=== PATIENT | female | born 1980 | race Caucasian/White ===

== ENCOUNTER 2016-09-22 14:56 | Emergency (ER) | payer BC ==
[~2016-09-22] VITALS: Ht 167.6 cm; Wt 109.8 kg
[~2016-09-22 14:56] MED LIST: ALLO300T PO; ARIP15TA2 PO; ASCO10002 PO; CANA300T PO; CYCL10TA2 PO; DOCU-27 PO; FENT1PAT90 TD; FLUV100C2 PO; FLUV100T2 PO; GABA-585 PO; GABA-586 PO; GLIP5TAB22 PO; HYDR2TAB13 PO; HYDR4TAB13 PO; INSU100I17 SQ; INSU100I27 SQ; LEVO150T PO; LEVO175T5 PO; LORA0.5T96 PO; MELO7.5T5 PO; METF10002 PO; METF500T4 PO; MINO100C PO; MODA100T2 PO; MULT-208 PO; OXYC-244 PO; OXYC-250 PO; OXYC1TAB8 PO; Oxycodone Hcl/Acetaminophen PO; PANT40TA3 PO; RISP1TAB43 PO; SPIR25TA3 PO; birth control pills
[2016-09-22 15:22] VITALS: BP 121/72
[2016-09-22] MEDS ORDERED: KETOROLAC TROMETHAMINE 60 MG/2 ML SYRINGE. IM ONE (15:45)
[2016-09-22] MEDS ORDERED: DEXAMETHASONE SOD PHOS 20 MG/5 ML VIAL. IM ONE (15:45)
[2016-09-22] MEDS ORDERED: HYDROMORPHONE 2 MG/ML VIAL. IM ONE (15:45)
--- NOTE | 2016-09-22 15:48 | PHYS DOC ---
Past Medical History Past Medical History: Hypothyroid, IBS, Other Additional Past Medical Histor: PCOS, OCD, SLEEP APNEA, DJD,CHRONIC PAIN,GOUT Past Surgical History: Tonsillectomy, Other Additional Past Surgical Histo: 3 BACK SX, SPINAL FUSION Alcohol Use: Rarely Drug Use: None Adult General Chief Complaint Chief Complaint: LOWER BACK PAIN OR INJURY HPI HPI Patient is a 36 year old female with a history of hypothyroidism, IBS, chronic back pain radiating to the left hip that presents today with 10 out of 10 chronic bilateral low back pain radiating to the left hip. Patient states she follows up with the pain clinic at [facility]. She states she showed up for her appointment at 1040 am and was told there was a mix up, her appointment was not scheduled for that time. She states she was not able to see the pain clinic doctor. She went home and tried taking her Dilaudid by mouth. She also has a fentanyl patch. She states her pain currently is not well controlled. She is in the ED requesting something for pain. Review of Systems Review of Systems Constitutional: Denies fever or chills [] Musculoskeletal: Chronic back pain radiating to the left hip Integument: Denies rash or skin lesions [] Neurologic: Denies headache, focal weakness or sensory changes [] Endocrine: Denies polyuria or polydipsia [] Allergies Allergies Allergies Coded Allergies Type Severity Reaction Last Updated Verified oxycodone Allergy Severe airway reaction 01/27/14 Yes morphine Allergy Mild Nausea and Vomiting 04/28/14 No Physical Exam Physical Exam Constitutional: Well developed, well nourished, no acute distress, non-toxic appearance. [] Abdomen: Bowel sounds normal, soft, no tenderness, no masses, no pulsatile masses. [] Skin: Warm, dry, no erythema, no rash. [] Back: Old healed surgical incision mid to low back. Diffuse tenderness to paraspinal muscles of bilateral lumbar region worse on the left SI joint, no midline tenderness, no CVA tenderness. [] Extremities: No tenderness, no cyanosis, no clubbing, ROM intact, no edema. [] Neurologic: Alert and oriented X 3, normal motor function, normal sensory function, no focal deficits noted. [] Psychologic: Affect normal, judgement normal, mood normal. [] Current Patient Data Vital Signs Vital Signs Date Time Temp Pulse Resp B/P Pulse Ox O2 Delivery O2 Flow Rate FiO2 2/17/17 15:22 97.8 118 22 121/72 95 Room Air 97.8 EKG EKG [] Radiology/Procedures Radiology/Procedures [] Course & Med Decision Making Course & Med Decision Making Pertinent Labs and Imaging studies reviewed. (See chart for details) Patient is in the ED with chronic low back pain. She follows up with the pain clinic and states there was a mixup of her appointment when she showed up. She has a fentanyl patch that she also takes Dilaudid when necessary for pain. I talked to patient and family member at length. Informed them patient is already taking strong pain medicine and there is very little we can do in the ED for her chronic pain. I recommended a shot of Decadron Toradol and 1 mg of Dilaudid IM and follow-up with the pain clinic doctor as soon as possible. She was provided return precautions and discharged in stable condition. Dragon Disclaimer Dragon Disclaimer This electronic medical record was generated, in whole or in part, using a voice recognition dictation system. Departure Departure Impression: Primary Impression: Chronic back pain Additional Impression: Left sided sciatica Disposition: 01 HOME, SELF-CARE Condition: STABLE Referrals: NEGRITO KERN (PCP) FLYNN GROSSMAN MD See Dr. Grossman as soon as possible Patient Instructions: Back Pain, Adult Additional Instructions: You were seen for chronic back pain. Continue taking your pain medicines as previously prescribed by Dr. Grossman. Come back to the emergency room for any concerning symptoms especially the loss of bowel bladder function. Problem Qualifiers Primary Impression: Chronic back pain Back pain location: low back pain Back pain laterality: bilateral Sciatica presence: with sciatica Sciatica laterality: sciatica of left side Qualified Code: M54.42 - Lumbago with sciatica, left side NUZHATAMBER LUCERO IRVING Sep 22, 2016 15:48
== END 2016-09-22 16:10 | disposition home or self-care (01) ==
LOC: ER 14:56
DX: G89.29 Other chronic pain (principal); M54.42 Lumbago with sciatica, left side; E03.9 Hypothyroidism, unspecified; G47.30 Sleep apnea, unspecified; M10.9 Gout, unspecified; Z88.5 Allergy status to narcotic agent
CPT/HCPCS: 96372; 99284; J1100; J1170; J1885

== ENCOUNTER → 2016-09-28 | Outpatient (CLI) | payer BC ==
[2016-09-22 15:22] VITALS: BP 121/72
[~2016-09-28] MED LIST changes: +CLOM50CA2 PO
--- NOTE | 2016-09-29 11:59 | PN ---
DATE: 09/28/2016 DIAGNOSES: Lumbar radiculopathy with lumbar degenerative disk disease, spondylosis and post-lumbar laminectomy syndrome. HISTORY OF PRESENT ILLNESS: The patient is a 36-year-old female who returns for followup status post medication management with Duragesic patches and hydromorphone. The patient reports she has been doing fairly well, but the hydromorphone is becoming less and less effective. She actually had to go to the Emergency Room about 5 days ago because the pain was becoming more intolerable in her low back and left leg. The patient reports that it is at 9 on a scale of 10 currently. They were able to give her an IV injection of hydromorphone and Toradol as well as some dexamethasone, which decreased the pain fairly significantly, but she is very frightened as what to do if this happens again. The patient reports that the hydromorphone is becoming less and less effective and she is taking it 4 times a day, which she was generally taking only 3 to 4 times a day. Now it is 4 times day, absolutely, the patient reports aches, sharp pain across the low back in the left leg with some numbness and tingling similar to that she has had for some time now since her lumbar surgery, but without significant decrease in pain control. The patient reports no side effects with the medications and normally would decrease her pain by about 70%-75%, but has only about 40%-50% decrease. The patient is still using Duragesic patch as well, which reports has no side effects with this also. PHYSICAL EXAMINATION: VITAL SIGNS: Today, the patient's blood pressure is 125/87, pulse 140, respirations 16, temperature 98.2 degrees Fahrenheit, height is 5 feet 7 inches, and weight is 237 pounds. GENERAL: The patient is awake, alert, oriented, appropriate, very pleasant demeanor. HEENT: Head shows normocephalic and atraumatic. Extraocular movements are intact and symmetrical. Oral cavity, mucous membranes are moist and pink. Dentition is intact. NECK: Shows anterior throat supple without palpable lymphadenopathy noted. Swallow reflex is symmetrical. CHEST: Shows normal on inspection. Breath sounds are clear to auscultation bilaterally. HEART: Shows S1 and S2 clear. ABDOMEN: Soft, nontender, and nondistended. No palpable organomegaly is noted. No rebound or guarding demonstrated. BACK: The patient's back shows spine grossly midline, well-healed surgical scar is noted in the lumbar distribution. Lumbar paraspinous muscle shows some moderate tenderness with palpation bilaterally in the lumbar distribution, but is symmetrical with inspection, on palpation shows some radiation, but only mildly into the gluteus bilaterally, somewhat worse on the left than the right. EXTREMITIES: The patient's lower extremities showed deep tendon reflexes of 1+ in the patellar and tendo-calcaneus tendons. Motor exam is approximately 4 on a scale of 5, but equal with dorsiflexion, extension, quadriceps and hamstring flexion bilaterally. Peripheral pulses are 1+ posterior tibial and dorsalis pedis pulses that are equal. No clubbing, cyanosis or edema is noted. Options were discussed with the patient and the patient's old chart was reviewed as her current medication regimen updated. Current review of systems is updated today as well. We will change the Dilaudid to oxycodone as she seems to be developing some physiologic tolerance ____ maintain a Duragesic patch of 25 mcg, also try Medrol Dosepak. She is having some increased irritation in her left hip as well as irritability and radiculitis in the left leg and back and she has done well with this in the past. Also, we will maintain 25 mcg Duragesic patches. The patient was given instruction as well as side effects to be aware of the medications. We also discussed in some detail physical therapy and the importance of conditioning her back as well as her core strength, which will help in the long run with keeping her back pain reduced. She has been willing to try this. We will make arrangements for physical therapy, strengthening and stretching exercises as well as mobility, heat and massage techniques for her low back and lower extremities. The patient will follow up after physical therapy is initiated. Also, patient reports she is leaving town in about 2 weeks for vacation and will follow up when she returns from this and sooner if necessary. FLYNN ALONSO MD DR: ARTHUR/nguyễn JOB#: [id number] / [id number]
== END | disposition home or self-care (01) ==
LOC: PNCL 13:10
PROVIDERS: ATTEND Anesthesiology
DX: M51.16 Intervertebral disc disorders with radiculopathy, lumbar region (principal); M47.896 Other spondylosis, lumbar region; M96.1 Postlaminectomy syndrome, not elsewhere classified
CPT/HCPCS: 99212

== ENCOUNTER 2016-12-19 21:18 | Emergency (ER) | payer BC ==
[~2016-12-19] VITALS: Ht 167.6 cm; Wt 106.1 kg
[~2016-12-19 21:18] MED LIST changes: +METF-620 PO; -METF10002 PO
[2016-12-19 21:26] VITALS: BP 161/84
--- NOTE | 2016-12-19 21:42 | PHYS DOC ---
Past Medical History Past Medical History: Hypothyroid, IBS, Other Additional Past Medical Histor: PCOS, OCD, SLEEP APNEA, DJD,CHRONIC PAIN,GOUT Past Surgical History: Tonsillectomy, Other Additional Past Surgical Histo: 3 BACK SX, SPINAL FUSION Alcohol Use: Rarely Drug Use: None Adult General Chief Complaint Chief Complaint: PAIN CONTROL [facility] HPI Patient is a 36 year old female presents to the ED with c/o exacerbation chronic LBP for three days. She states that she is using her percocet and flexeril as directed by her pain management physician. She states that she is not having relief of pain. She states that pain is typical of her chronic low back pain. She states this pain does radiate to the right hip which is consistent with her chronic pain. She has no known injury. She has no loss of bowel or bladder control. No loss of function lower extremity. She states that she has not contacted her pain management physician in [facility] because she "buttock and management on my own". Review of Systems Review of Systems Constitutional: Denies fever or chills [] Eyes: Denies change in visual acuity, redness, or eye pain [] HENT: Denies nasal congestion or sore throat [] Respiratory: Denies cough or shortness of breath [] Cardiovascular: No additional information not addressed in HPI [] GI: Denies abdominal pain, nausea, vomiting, bloody stools or diarrhea [] : Denies dysuria or hematuria [] Musculoskeletal: Denies back pain or joint pain [] Integument: Denies rash or skin lesions [] Neurologic: Denies headache, focal weakness or sensory changes [] Endocrine: Denies polyuria or polydipsia [] Allergies Allergies Allergies Coded Allergies Type Severity Reaction Last Updated Verified oxycodone Allergy Severe airway reaction 01/27/14 Yes morphine Allergy Mild Nausea and Vomiting 04/28/14 No Physical Exam Physical Exam Constitutional: Well developed, well nourished, non-toxic appearance. [] HENT: Normocephalic, atraumatic, bilateral external ears normal, oropharynx moist, no oral exudates, nose normal. [] Eyes: PERRLA, EOMI, conjunctiva normal, no discharge. [] Neck: Normal range of motion, no tenderness, supple, no stridor. [] Cardiovascular:Heart rate regular rhythm, no murmur [] Lungs & Thorax: Bilateral breath sounds clear to auscultation [] Abdomen: Bowel sounds normal, soft, no tenderness, no masses, no pulsatile masses. [] Skin: Warm, dry, no erythema, no rash. [] Back: Mild tenderness in the right lumbar paraspinous muscles and across the right sacroiliac crest. She has no midline spine tenderness. She has a negative straight raise leg test. Her neurovascular is intact distally. No saddle anesthesia. Her muscle strength is 5/5. Extremities: No tenderness, no cyanosis, no clubbing, ROM intact, no edema. [] Neurologic: Alert and oriented X 3, normal motor function, normal sensory function, no focal deficits noted. [] Psychologic: Affect normal, judgement normal, mood normal. [] Current Patient Data Vital Signs Vital Signs Date Time Temp Pulse Resp B/P (MAP) Pulse Ox O2 Delivery O2 Flow Rate FiO2 12/19/16 21:26 98.1 135 18 98 Room Air 98.1 EKG EKG [] Radiology/Procedures Radiology/Procedures [] Course & Med Decision Making Course & Med Decision Making Pertinent Labs and Imaging studies reviewed. (See chart for details) [] Dragon Disclaimer Dragon Disclaimer This electronic medical record was generated, in whole or in part, using a voice recognition dictation system. Departure Departure Impression: Primary Impression: Chronic back pain Disposition: 01 HOME, SELF-CARE Condition: STABLE Referrals: NEGRITO KERN (PCP) Patient Instructions: Chronic Back Pain Additional Instructions: Follow-up with your pain management physician in the morning, call when the office opens. SMITHA ELAM APRN December 19, 2016 21:42
[2016-12-19] MEDS ORDERED: fentaNYL PF VIAL 100 MCG/2 ML VIAL IM ONE (22:00)
[2016-12-21] MEDS ORDERED: VALA500T PO (08:11)
== END 2016-12-19 21:51 | disposition home or self-care (01) ==
LOC: ER 21:18
DX: G89.29 Other chronic pain (principal); M54.5 Low back pain; M25.551 Pain in right hip; E03.9 Hypothyroidism, unspecified; E28.2 Polycystic ovarian syndrome; F42.9 Obsessive-compulsive disorder, unspecified; K58.9 Irritable bowel syndrome, unspecified; M10.9 Gout, unspecified; Z98.890 Other specified postprocedural states; Z98.1 Arthrodesis status; Z88.5 Allergy status to narcotic agent
CPT/HCPCS: 96372; 99283; J3010

== ENCOUNTER → 2016-12-21 | Outpatient (CLI) | payer BC ==
[2016-12-19 21:26] VITALS: BP 161/84
[~2016-12-21] MED LIST changes: +IOHEXOL 180 MG/ML 10 ML VIAL. ONE; +VALA500T PO; +methylPREDNISolone ACETATE 40 MG/ML VIAL. ONE; +methylPREDNISolone ACETATE 80 MG/ML VIAL. ONE
--- NOTE | 2016-12-21 10:59 | PN ---
DATE: 12/21/2016 PROGRESS NOTE FOR PAIN CLINIC DIAGNOSES: Lumbar radiculopathy with lumbar degenerative disk disease, spondylosis and post-lumbar laminectomy syndrome. HISTORY OF PRESENT ILLNESS: The patient is a 36-year-old female who returns for followup, status post medication management with Duragesic patches and oxycodone. The patient has been doing very well with this, but had increased pain across the low back over the past several weeks to the point where she went to the Emergency Room several days ago. They gave her an injection of fentanyl and send her home. It did get help temporarily, but pain is becoming more noticeable. It was radiating to the posterior and lateral anterior thigh on the right side into the lower leg on the right side as well anteriorly and medially. The patient reports this feels similar to that did for her surgery. The patient reports it at 10 on a scale of 10. It is worse at 7 currently. The patient reports it as severe, shooting, sharp, aching and alternating with dull and stabbing pain. The patient reports no new motor or sensory deficits, no new bowel or bladder incontinence, but still significant pain that is awakening her from sleep at night. She has to apply heat, take pain medication and change positions to decrease the pain. PHYSICAL EXAMINATION: VITAL SIGNS: The patient's blood pressure is 138/90, pulse 109, respirations 18, temperature is 98.1 degrees Fahrenheit. Height is 5 feet 7 inches, weighs 246 pounds. GENERAL: The patient is awake, alert, oriented, appropriate, has a very pleasant demeanor. HEENT: Shows normocephalic, atraumatic. Extraocular movements are intact and symmetrical. Oral cavity shows mucous membranes moist and pink. Dentition is intact. NECK: Shows anterior throat supple without palpable lymphadenopathy noted. Swallow reflex is symmetrical. CHEST: Shows normal on inspection. Breath sounds clear to auscultation bilaterally. HEART: Shows S1 and S2 clear. ABDOMEN: Soft, nontender, nondistended. No palpable organomegaly is noted. No rebound or guarding demonstrated. BACK: Shows spine grossly in the midline with a well-healed surgical scar with some flattening of lumbar lordotic curvature. Paraspinous musculature shows moderately tender with palpation, but symmetrical. No evidence of atrophy or hypertrophy. No radiation of pain. EXTREMITIES: The patient's lower extremities showed deep tendon reflexes at 1+ in the patellar and tendo calcaneus tendons. Motor exam is strong with 5/5 dorsiflexion and extension. Quadriceps and hamstring flexion approximately 4/5, but equal and symmetrical. Options were discussed with the patient and the patient's old chart was reviewed as her current medication regimen and updated. Current review of systems updated today as well. We will proceed with a lumbar epidural steroid injection today with fluoroscopic guidance. Risks were again discussed including, but not limited to bleeding, infection, possibility of epidural hematoma, subsequent neurologic compromise, dural puncture, headaches, spinal cord and/or nerve damage, side effects of steroid medication, poor results regarding pain control. The patient understands and wishes to proceed. The patient will return to clinic in approximately 2 weeks for followup. She was counseled to return appointment, activity level and side effects to be aware of. The patient also was given refill prescriptions for the Duragesic patch 25 mcg and oxycodone 10 mg with instructions and side effects discussed as well. Also, the patient's blood pressure was slightly elevated in diastolic today and she does have a followup with her primary care physician for diabetic check and will discuss pressure with her as well. DIAGNOSES: Lumbar radiculopathy with lumbar degenerative disk disease, spondylosis and post-lumbar laminectomy syndrome. PROCEDURE: Lumbar epidural steroid injection in translaminar approach at L4-L5 level using C-arm fluoroscopic guidance under sterile prep and drape using local anesthetic. Medication injected is 120 mg Depo-Medrol plus 10 mL of preservative free normal saline and 2 mL of Isovue for contrast. CONDITION AT DISCHARGE: Stable. The patient tolerated the procedure well, had no complications. FLYNN ALONSO MD DR: ARTHUR/nguyễn JOB#: [id number] / [id number]
== END | disposition home or self-care (01) ==
LOC: PNCL 08:00
PROVIDERS: ATTEND Anesthesiology
DX: M51.16 Intervertebral disc disorders with radiculopathy, lumbar region (principal); M47.26 Other spondylosis with radiculopathy, lumbar region; M96.1 Postlaminectomy syndrome, not elsewhere classified; E66.9 Obesity, unspecified; M19.90 Unspecified osteoarthritis, unspecified site; F41.9 Anxiety disorder, unspecified; F32.9 Major depressive disorder, single episode, unspecified; E03.9 Hypothyroidism, unspecified; E11.9 Type 2 diabetes mellitus without complications
CPT/HCPCS: 62323; J1030; J1040

== ENCOUNTER → 2017-02-21 | Outpatient (CLI) | payer BC ==
[~2017-02-21] MED LIST changes: -ARIP15TA2 PO; +ARIP15TA3 PO; +DOCU-109 PO; -DOCU-27 PO; -HYDR2TAB13 PO; +HYDR2TAB31 PO; -HYDR4TAB13 PO; +HYDR4TAB45 PO; -OXYC-244 PO; -OXYC-250 PO; +OXYC-327 PO; +OXYC-328 PO
== END | disposition home or self-care (01) ==
LOC: PNCL 08:18
PROVIDERS: ATTEND Anesthesiology
DX: M51.16 Intervertebral disc disorders with radiculopathy, lumbar region (principal); M47.26 Other spondylosis with radiculopathy, lumbar region; E66.9 Obesity, unspecified; Z68.36 Body mass index [BMI] 36.0-36.9, adult; E11.9 Type 2 diabetes mellitus without complications; M19.90 Unspecified osteoarthritis, unspecified site; E03.9 Hypothyroidism, unspecified; F41.9 Anxiety disorder, unspecified; F32.9 Major depressive disorder, single episode, unspecified; F17.200 Nicotine dependence, unspecified, uncomplicated; Z88.6 Allergy status to analgesic agent
CPT/HCPCS: 62323; J1030; J1040

== ENCOUNTER → 2017-08-30 | Outpatient (CLI) | payer BC | END | disposition home or self-care (01) | LOC: PNCL 09:00 | DX: M51.16 Intervertebral disc disorders with radiculopathy, lumbar region (principal); R53.83 Other fatigue | CPT/HCPCS: 99212 ==

== ENCOUNTER → 2017-10-31 | Outpatient (CLI) | payer BC ==
[~2017-10-31] MED LIST changes: -ALLO300T PO; -ARIP15TA3 PO; -ASCO10002 PO; -CANA300T PO; -CLOM50CA2 PO; -CYCL10TA2 PO; -DOCU-109 PO; -FENT1PAT90 TD; -FLUV100C2 PO; -FLUV100T2 PO; -GABA-585 PO; -GABA-586 PO; -GLIP5TAB22 PO; -HYDR2TAB31 PO; -HYDR4TAB45 PO; -INSU100I17 SQ; -INSU100I27 SQ; +IOHEXOL 180 MG/ML 10 ML VIAL.; -IOHEXOL 180 MG/ML 10 ML VIAL. ONE; -LEVO150T PO; -LEVO175T5 PO; -LORA0.5T96 PO; -MELO7.5T5 PO; -METF-620 PO; -METF500T4 PO; -MINO100C PO; -MODA100T2 PO; -MULT-208 PO; -OXYC-327 PO; -OXYC-328 PO; -OXYC1TAB8 PO; -Oxycodone Hcl/Acetaminophen PO; -PANT40TA3 PO; -RISP1TAB43 PO; -SPIR25TA3 PO; -VALA500T PO; -birth control pills; +methylPREDNISolone ACETATE 40 MG/ML VIAL.; -methylPREDNISolone ACETATE 40 MG/ML VIAL. ONE; +methylPREDNISolone ACETATE 80 MG/ML VIAL.; -methylPREDNISolone ACETATE 80 MG/ML VIAL. ONE
== END | disposition home or self-care (01) ==
LOC: PNCL 09:00
DX: M51.16 Intervertebral disc disorders with radiculopathy, lumbar region (principal); M96.1 Postlaminectomy syndrome, not elsewhere classified; M47.26 Other spondylosis with radiculopathy, lumbar region; Z88.5 Allergy status to narcotic agent; Z88.6 Allergy status to analgesic agent; G47.30 Sleep apnea, unspecified; E66.9 Obesity, unspecified; M19.90 Unspecified osteoarthritis, unspecified site; E11.9 Type 2 diabetes mellitus without complications; M10.9 Gout, unspecified; E03.9 Hypothyroidism, unspecified; F41.9 Anxiety disorder, unspecified; F32.9 Major depressive disorder, single episode, unspecified; F17.210 Nicotine dependence, cigarettes, uncomplicated
CPT/HCPCS: 62323; J1030; J1040; Q9965

== ENCOUNTER → 2018-02-13 | Outpatient (CLI) | payer BC ==
[~2018-02-13] MED LIST changes: +LIDOCAINE 1% PF 2 ML VIAL.
== END | disposition home or self-care (01) ==
LOC: PNCL 08:28
DX: M51.16 Intervertebral disc disorders with radiculopathy, lumbar region (principal); M47.26 Other spondylosis with radiculopathy, lumbar region; M96.1 Postlaminectomy syndrome, not elsewhere classified; M19.90 Unspecified osteoarthritis, unspecified site; M10.9 Gout, unspecified; E11.9 Type 2 diabetes mellitus without complications; E03.9 Hypothyroidism, unspecified; F42.9 Obsessive-compulsive disorder, unspecified; F41.9 Anxiety disorder, unspecified; F32.9 Major depressive disorder, single episode, unspecified; F17.200 Nicotine dependence, unspecified, uncomplicated; Z88.5 Allergy status to narcotic agent; E66.9 Obesity, unspecified; Z79.84 Long term (current) use of oral hypoglycemic drugs
CPT/HCPCS: 62323; J1030; J1040; Q9965

== ENCOUNTER → 2018-04-09 | Outpatient (CLI) | payer BC ==
[~2018-04-09] MED LIST changes: +ADAL40PE SQ; +ALLO300T PO; +AMLO5TAB4 PO; +AMLO5TAB7 PO; +ARIP15TA3 PO; +ASCO10002 PO; +CANA300T PO; +CETI10TA16 PO; +CLOM50CA2 PO; +CYCL10TA2 PO; +DOCU-109 PO; +DOXY100C2 PO; +FENT1PAT90 TD; +FLUT9.9S NS; +FLUV100C2 PO; +FLUV100T2 PO; +GABA-585 PO; +GABA-586 PO; +GLIP5TAB22 PO; +HYDR2TAB31 PO; +HYDR4TAB45 PO; +INSU100I17 SQ; +INSU100I27 SQ; -IOHEXOL 180 MG/ML 10 ML VIAL.; +LANS30CA PO; +LANS30CA66 PO; +LEVO150T PO; +LEVO175T5 PO; -LIDOCAINE 1% PF 2 ML VIAL.; +LORA0.5T96 PO; +MELO7.5T5 PO; +METF10007 PO; +METF500T16 PO; +MINO100C PO; +MODA100T2 PO; +MULT-208 PO; +OXYC-327 PO; +OXYC-328 PO; +OXYC1TAB8 PO; +Oxycodone Hcl/Acetaminophen PO; +PANT40TA3 PO; +RISP1TAB43 PO; +SPIR25TA5 PO; +VALA500T PO; +birth control pills; -methylPREDNISolone ACETATE 40 MG/ML VIAL.; -methylPREDNISolone ACETATE 80 MG/ML VIAL.
--- NOTE | 2018-04-10 05:17 | PAIN ---
DATE OF SERVICE: 04/09/2018 PROGRESS NOTE FOR PAIN CLINIC DIAGNOSES: Lumbar radiculopathy with lumbar degenerative disk disease, lumbar spondylosis and post-lumbar laminectomy syndrome. HISTORY OF PRESENT ILLNESS: The patient is a 38-year-old female who returns for followup status post lumbar epidural steroid injection as well as medication management with oxycodone and Flexeril. The patient reports she is taking these with good results, but over the last week the pain has become significant in the mid back more on the left side than the right. She went to the Emergency Department and was worked up for kidney stone, which was negative. She had a CT scan of her abdomen and pelvis, which was negative by her report and I do not have the reading for that at the time of this dictation. The patient reports still significant aching in the low back, bilateral lower extremities, mostly in the posterior gluteus, posterior thighs, lateral thighs and anterior thighs more on the left than the right. The patient reports it is aching, sharp, shooting, cramping, stabbing and severe, worse with standing, walking, changing positions, awakens her from sleep at night significantly. The patient reports it is worse with activity, rates her pain as a 10 on a scale of 10 at its worst, 8 on average, 7 at its least and is an 8 today. The patient reports no new motor or sensory deficits and no bowel or bladder incontinence with significant pain is noted. PHYSICAL EXAMINATION: VITAL SIGNS: The patient's blood pressure is 151/102, pulse 105, respirations 20, temperature 98.4 degrees Fahrenheit, height is 5 feet 7 inches and weight is 256 pounds. GENERAL: The patient is awake, alert, oriented, appropriate, very pleasant demeanor. HEENT: Head shows normocephalic and atraumatic. Extraocular movements are intact and symmetrical. Oral cavity: Mucous membranes are moist and pink. Dentition is intact. NECK: Shows anterior throat is supple without palpable lymphadenopathy noted. Swallow reflex is symmetrical. CHEST: Shows normal with inspection. Breath sounds are clear to auscultation bilaterally. HEART: Shows S1 and S2 clear. No murmurs are auscultated. ABDOMEN: Soft, nontender and nondistended. No palpable organomegaly is noted. BACK: Shows spine grossly in the midline. Well-healed surgical scar is noted in the lumbar distribution with lumbar lordotic curvature flattening. Lumbar paraspinous muscle shows diffusely tender throughout the upper, middle and lower distribution of the paraspinous musculature in the lumbar distribution and also in the middle and lower distribution and thoracic paraspinous muscles slightly more on the left than the right as well, but symmetrical without trigger points. EXTREMITIES: The patient's lower extremities show deep tendon reflexes, 1+ in the patella and tendo calcaneus tendons. Motor exam is strong with 5/5 dorsiflexion, extension and approximately 4/5 quadriceps and hamstring flexion, but symmetrical. Peripheral pulses are 1+ posterior tibia. No peripheral edema is noted. Options were discussed with the patient. The patient's old chart was reviewed as was her current medication regimen updated. Current review of systems updated today as well. We will proceed with a second in the series of lumbar epidural steroid injection today with fluoroscopic guidance. Risks were again discussed including, but not limited to bleeding, infection, possibility of epidural hematoma and subsequent neurological compromise, dural puncture, headaches, spinal cord and/or nerve damage, side effects of steroid medication and poor results regarding pain control. The patient understands and wished to proceed. The patient will return to the clinic in approximately 2 weeks for followup. She was counseled as to return appointment, activity level and side effects to be aware of. DIAGNOSIS: Lumbar radiculopathy with lumbar spondylosis, lumbar degenerative disk disease and post-lumbar laminectomy syndrome. PROCEDURE: Lumbar epidural steroid injection at L4-L5 level using C-arm fluoroscopic guidance under sterile prep and drape using local anesthetic. MEDICATION INJECTED: A total of 120 mg of Depo-Medrol plus 10 mL of preservative free normal saline and 2 mL of Isovue for contrast. CONDITION AT DISCHARGE: Stable. The patient tolerated the procedure well and had no complications. FLYNN ALONSO MD DR: ARTHUR/nguyễn JOB#: [id number] / [id number]
== END | disposition home or self-care (01) ==
LOC: PNCL 13:59
PROVIDERS: ATTEND Anesthesiology
DX: M51.16 Intervertebral disc disorders with radiculopathy, lumbar region (principal); M47.896 Other spondylosis, lumbar region; E11.9 Type 2 diabetes mellitus without complications; E03.9 Hypothyroidism, unspecified; Z88.5 Allergy status to narcotic agent; Z88.6 Allergy status to analgesic agent; Z87.891 Personal history of nicotine dependence; Z82.49 Family history of ischemic heart disease and other diseases of the circulatory system; Z83.3 Family history of diabetes mellitus
CPT/HCPCS: 99212

== ENCOUNTER → 2018-05-03 | Outpatient (CLI) | payer BC ==
[~2018-05-03] MED LIST changes: +GADOBUTROL 10 MMOL/10 ML VIAL IV ONE
[2018-05-03 08:53] LABS: CREATININE 0.7 mg/dL (0.6-1.0); GFR 94.2
--- NOTE | 2018-05-03 10:58 | RAD ---
MRI of the thoracic spine without and with contrast 05/03/2018 CLINICAL HISTORY: Mid back pain for 2 months. TECHNIQUE: Unenhanced T1-weighted and T2-weighted sagittal and axial and inversion recovery sagittal images of the thoracic spine were obtained. After the intravenous administration of 10 cc of Gadavist, enhanced T1-weighted sagittal and axial images of the thoracic spine were obtained. FINDINGS: Minimal S-shaped curvature of the thoracolumbar spine is seen. Degenerative signal changes are seen involving all of the disks of the thoracic spine. Degenerative signal changes are seen within the marrow surrounding these discs. The thoracic spinal cord is normal morphology, position, and signal characteristics. No area of abnormal contrast enhancement is seen. On the axial images degenerative changes are seen consisting of minimal to mild generalized disc bulges and degenerative changes involving the facet joints. A right paracentral focal disc protrusion is seen at T7-8. This measures 3 mm in AP diameter. A right paracentral focal disc protrusion is seen at T8-9. This measures 5 mm in AP diameter. These findings result in mild to moderate right lateral central spinal canal stenosis at T8-9. No neural foraminal stenosis is seen. IMPRESSION: Degenerative changes are seen involving the thoracic spine as outlined above. These findings result in mild to moderate right lateral central spinal canal stenosis at T8-9 without evidence of cord impingement. No neural foraminal stenosis is seen. Electronically signed by: Hilario Hendricks MD (05/03/2018 10:55 AM) [id number]
--- NOTE | 2018-05-03 12:57 | RAD ---
MRI of the lumbar spine without and with contrast 05/03/2018 CLINICAL HISTORY: Chronic low back pain which radiates down the left leg. TECHNIQUE: Unenhanced T1-weighted and T2-weighted sagittal and axial and inversion recovery sagittal images of the lumbar spine were obtained. After the intravenous administration of 10 cc of Gadavist, enhanced T1-weighted sagittal and axial images the lumbar spine were obtained. FINDINGS: Comparison study is dated 01/25/2015. Minimal S-shaped curvature of the thoracolumbar spine is seen. The patient is post laminectomy and posterolateral fusion using pedicle screws and stabilizing rods at L5-S1. Degenerative signal changes are seen within the L4-5 disc. Degenerative signal changes and loss of height are seen involving the L5-S1 disc. Degenerative signal changes are seen within the marrow surrounding this disc. The conus medullaris is normal morphology, position, and signal characteristics. Clumping of the nerve roots of the cauda equina are seen involving the mid and distal thoracic spine which may reflect arachnoiditis. The L1-2 disc space is within normal limits. At the L2-3 and L3-4 disc spaces there are minimal generalized disc bulges. Degenerative changes are seen involving the facet joints bilaterally. There is mild ligamentum flavum hypertrophy bilaterally. These findings do not result in significant central spinal canal or neural foraminal stenosis. At the L4-5 disc space there is a mild generalized disc bulge. Superimposed on this disc bulge is a central/left paracentral focal disc protrusion. This measures 3 mm in AP diameter. Degenerative changes are seen involving the facet joints bilaterally. There is mild ligamentum flavum hypertrophy bilaterally. These findings when combined result in mild central spinal canal stenosis. No neural foraminal stenosis is seen. At the L5-S1 disc space postsurgical changes are seen as outlined above. Degenerative changes are seen involving the facet joints bilaterally. These findings do not result in significant central spinal canal or neural foraminal stenosis. IMPRESSION: 1. Post laminectomy and fusion at L5-S1. 2. The changes of degenerative disc disease are seen involving the lumbar spine. These findings result in mild central spinal canal stenosis at L4-5. No neural foraminal stenosis is seen. 3. Clumping of the nerve roots of the cauda equina within the mid and lower lumbar spine is seen which may reflect arachnoiditis. Electronically signed by: Hilario Hendricks MD (05/03/2018 12:54 PM) [id number]
== END | disposition home or self-care (01) ==
LOC: MRI 07:42
PROVIDERS: ATTEND Anesthesiology
DX: M51.36 Other intervertebral disc degeneration, lumbar region (principal); M48.061 Spinal stenosis, lumbar region without neurogenic claudication; M51.34 Other intervertebral disc degeneration, thoracic region; M48.04 Spinal stenosis, thoracic region; Z88.5 Allergy status to narcotic agent
CPT/HCPCS: 36415; 72157; 72158; 82565; 84520; A9585

== ENCOUNTER → 2018-05-08 | Outpatient (CLI) | payer BC ==
[~2018-05-08] MED LIST changes: -GADOBUTROL 10 MMOL/10 ML VIAL IV ONE; +IOHEXOL 180 MG/ML 10 ML VIAL. ONE; +LIDOCAINE 2% PF 2ML VIAL. ONE; +methylPREDNISolone ACETATE 40 MG/ML VIAL. ONE; +methylPREDNISolone ACETATE 80 MG/ML VIAL. ONE
--- NOTE | 2018-05-08 15:56 | PAIN ---
DATE OF SERVICE: 05/08/2018 DIAGNOSES: 1. Lumbar radiculopathy with lumbar degenerative disk disease and lumbar spondylosis, post-laminectomy syndrome. 2. Thoracic herniated disk. HISTORY OF PRESENT ILLNESS: The patient is a 38-year-old female who returns for followup status post lumbar epidural steroid injections x 2, with good results, but only limited for about 50% for about 2 weeks. The patient reports pain returning as after her last visit, her chief complaint was upper mid back pain. We did do a new MRI scan of both the lumbar and thoracic distribution. Lumbar showing L4-L5 disk space, generalized disk bulge and a central left paracentral focal protrusion. Thoracic spine showing a right paracentral focal disk protrusion at T8-T9, with only mild to moderate right lateral central spinal canal stenosis. The patient reports no significant pain in the low back as well as in between the shoulder blades, slightly more on the right than the left, but present bilaterally. The patient reports it is aching, sharp, shooting pain, tingling, burning, stabbing, radiating at times as well, in the low back and left lower extremity as well as in the mid upper back. The patient reports the pain is a 9 on a scale of 10 at its worst, 7 on average, 6 at its least and is an 8 today. The patient reports no new motor or sensory deficits, no new bowel or bladder incontinence or other complaints. PHYSICAL EXAMINATION: VITAL SIGNS: The patient's blood pressure 135/94, pulse 101, respirations 18, temperature 97.7 degrees Fahrenheit, height 5 feet 7 inches and weighs 253 pounds. GENERAL: The patient is awake, alert, oriented, appropriate, very pleasant demeanor. HEENT: Head is normocephalic, atraumatic. Extraocular movements are intact, symmetrical. Oral cavity, mucous membranes are moist and pink. Dentition is intact. NECK: Shows anterior throat supple without palpable lymphadenopathy noted. Swallow reflex symmetrical. CHEST: Shows normal with inspection. Breath sounds clear to auscultation bilaterally. HEART: Shows S1, S2 clear. No murmurs auscultated. ABDOMEN: Soft, nontender, nondistended. No palpable organomegaly is noted. No rebound or guarding demonstrated. BACK: Shows spine grossly in the midline. Slight exaggeration of thoracic kyphosis and some flattening of lumbar lordotic curvature with well-healed surgical scar noted. Thoracic paraspinous muscle shows symmetrical on inspection, with palpation shows some moderate tenderness in the mid aspect of the paraspinous musculature bilaterally, fairly tender to palpation without significant radiation. The patient has good rotational motion. Lumbar spine shows moderate tenderness throughout the upper, middle, lower distribution of paraspinous muscles bilaterally without radiation as well. EXTREMITIES: The patient's lower extremities show deep tendon reflexes 1+ in the patellar and tendocalcaneus tendons. Motor exam is strong with 5/5 dorsiflexion, extension and 4/5 with quadriceps and hamstring flexion, but symmetrical. Peripheral pulses are 1+ posterior tibial. No peripheral edema is noted. Options were discussed with the patient. The patient's old chart was reviewed as her current medication regimen updated. Current review of systems updated today as well. We will proceed with a thoracic epidural steroid injection today with fluoroscopic guidance. Risks were again discussed including, but not limited to bleeding, infection, possibility of epidural hematoma and subsequent neurological compromise, dural puncture, headaches, spinal cord and/or nerve damage, side effects of steroid medication and poor results regarding pain control. The patient understands and wished to proceed. The patient to return to clinic in approximately 2 weeks for followup. She was counseled on return appointment, activity level and side effects to be aware of. DIAGNOSES: Thoracic herniated disk with thoracic radiculopathy. PROCEDURES: Thoracic epidural steroid injection T8-T9 level using C-arm fluoroscopic guidance under sterile prep and drape using local anesthetic. MEDICATION INJECTED: A total of 120 mg Depo-Medrol, plus 5 mL of preservative-free normal saline and 2 mL of Isovue for contrast. CONDITION AT DISCHARGE: Stable. The patient tolerated procedure well, had no complications. FLYNN ALONSO MD DR: ARTHUR/nguyễn JOB#: [id number] / [id number]
== END | disposition home or self-care (01) ==
LOC: PNCL 08:01
PROVIDERS: ATTEND Anesthesiology
DX: M51.14 Intervertebral disc disorders with radiculopathy, thoracic region (principal); M96.1 Postlaminectomy syndrome, not elsewhere classified; G47.30 Sleep apnea, unspecified; E66.9 Obesity, unspecified; M19.90 Unspecified osteoarthritis, unspecified site; E11.9 Type 2 diabetes mellitus without complications; E03.9 Hypothyroidism, unspecified; F32.9 Major depressive disorder, single episode, unspecified; F41.9 Anxiety disorder, unspecified; F17.210 Nicotine dependence, cigarettes, uncomplicated; Z79.899 Other long term (current) drug therapy; Z98.890 Other specified postprocedural states; Z88.5 Allergy status to narcotic agent; Z88.6 Allergy status to analgesic agent
CPT/HCPCS: 62321; J1030; J1040; J2001; Q9965

== ENCOUNTER → 2018-05-31 | Outpatient (CLI) | payer BC ==
[~2018-05-31] MED LIST changes: -IOHEXOL 180 MG/ML 10 ML VIAL. ONE; +IOHEXOL 300 MG/ML 50 ML VIAL. IT ONE; -LIDOCAINE 2% PF 2ML VIAL. ONE; +LIDOCAINE WITH 8.4% SOD BICARB 3 ML DISP.SYRIN. INJ ONE; +LISI-338 PO; +MORP15TA3 PO; +OXYC5TAB95 PO; +TIZA4CAP3 PO; -methylPREDNISolone ACETATE 40 MG/ML VIAL. ONE; -methylPREDNISolone ACETATE 80 MG/ML VIAL. ONE
[2018-05-31 11:05] VITALS: BP 135/80
[2018-05-31 11:45] VITALS: BP 120/63
--- NOTE | 2018-05-31 12:36 | RAD ---
Thoracolumbar myelogram, 05/31/2018: History: Spondylolisthesis, back pain Under local anesthesia, aseptic conditions and fluoroscopic guidance a lumbar puncture was performed at the upper L2 level utilizing a 25-gauge Filemon spinal needle. Good clear CSF flow was obtained following which 11 cc of Omnipaque 300 was injected in the thecal sac. The spinal needle was removed and hemostasis obtained. Appropriate digital imaging of the lumbar and thoracic spine was then performed. 4.2 minutes of fluoroscopy time was utilized. 22 fluoroscopic spot images were recorded. The patient tolerated the procedure well and was sent to CT in good condition. The following findings are delineated on the myelogram: 1. Review of previous studies shows that there are small ribs at T12. There are 4 lumbar type vertebral bodies with sacralization of L5. There are bilateral pedicle screws at L4 and S1 attached to posterior fixation rods. This level of fusion will be termed L4-S1 for purposes of these reports, although on previous studies it has been termed L5-S1. 2. There is a moderate anterior extradural defect at L4-S1 and smaller anterior extradural defects at L1-2, L2-3 and L3-4. No high-grade lumbar central spinal stenosis is evident. 3. Upright lateral flexion and extension views demonstrate no evidence of spondylolisthesis or instability. 4. There are minimal anterior extradural defects at several levels in the lower thoracic spine. No high-grade thoracic spinal stenosis is evident. CT of the thoracic and lumbar spine-post myelogram, 05/31/2018: Multidetector CT imaging was performed with multiplanar reconstructions produced. The following findings are delineated: 1. At T7-8 there is a slight right anterolateral lateral extradural defect upon the thecal sac due to spurring. 2. There is a moderate right anterolateral extradural defect at T8-9. This appears to be due to a small disc/osteophyte complex. 3. No high-grade central spinal or foraminal stenosis is seen in the thoracic spine. 4. The thoracic cord demonstrates no intrinsic abnormality. 5. At L1-2 and L2-3 there is minimal posterior disc bulging at the midline. The central spinal canal and neural foramina are well maintained. 6. At and inferior to the L3-4 level the images are partially compromised by artifacts arising from the L4 and S1 surgical screws and rods. At L3-4 there is mild broad-based posterior disc bulging. There are mild degenerative changes involving the facet joints. The thecal sac measures 11-12 mm in AP diameter at the midline. There is only mild inferior foraminal narrowing bilaterally. 7. At L4-S1 there is severe disc space narrowing. There is a large posterior osteophyte at the midline. There are moderate degenerative changes involving the facet joints. There is a laminectomy defect posteriorly. The thecal sac measures 11 mm in AP diameter at the midline. There is moderate inferior foraminal narrowing bilaterally. 8. There is clumping of nerve roots in the mid to lower lumbar spine raising the possibility of arachnoiditis. IMPRESSION: 1. Sacralization of L5. Utilizing this numbering system the level of fusion and instrumentation is considered to be L4-S1 for purposes of these reports. 2. Large posterior spur at L4-S1 without evidence of significant central spinal stenosis. 3. Mild posterior disc bulging and facet joint arthropathy at L3-4 without significant spinal stenosis. 4. Mild right anterolateral extradural defect at T8-9 due to a small disc/osteophyte complex. 5. Additional mild scattered degenerative changes as described above. 6. Nerve root clumping in the mid and lower lumbar spine raising the possibility of arachnoiditis. PQRS Compliance Statement: One or more of the following individualized dose reduction techniques were utilized for this examination: 1. Automated exposure control 2. Adjustment of the mA and/or kV according to patient size 3. Use of iterative reconstruction technique
== END | disposition home or self-care (01) ==
LOC: EDBD → RAD 08:42
PROVIDERS: ATTEND Neurological Surgery
DX: M46.06 Spinal enthesopathy, lumbar region (principal); M12.88 Other specific arthropathies, not elsewhere classified, other specified site; M51.36 Other intervertebral disc degeneration, lumbar region; M46.04 Spinal enthesopathy, thoracic region
CPT/HCPCS: 72129; 72132; 72270

== ENCOUNTER 2018-06-02 00:01 | Emergency (ER) | payer BC ==
[~2018-06-02] VITALS: Ht 167.6 cm; Wt 113.4 kg
[~2018-06-02 00:01] MED LIST changes: -IOHEXOL 300 MG/ML 50 ML VIAL. IT ONE; -LIDOCAINE WITH 8.4% SOD BICARB 3 ML DISP.SYRIN. INJ ONE; -LISI-338 PO; -MORP15TA3 PO; -OXYC5TAB95 PO; -TIZA4CAP3 PO
[2018-06-02 00:20] VITALS: BP 156/77
--- NOTE | 2018-06-02 00:51 | PHYS DOC ---
Past Medical History Past Medical History: Hypothyroid, IBS, Other Additional Past Medical Histor: PCOS, OCD, SLEEP APNEA, DJD,CHRONIC PAIN,GOUT Past Surgical History: Tonsillectomy, Other Additional Past Surgical Histo: 3 BACK SX, SPINAL FUSION Alcohol Use: Rarely Drug Use: None Adult General Chief Complaint Chief Complaint: BACK PAIN OR INJURY [facility] Patient is a 38 year old [f__sex] who presents with [] Review of Systems Review of Systems Constitutional: Denies fever or chills [] Eyes: Denies change in visual acuity, redness, or eye pain [] HENT: Denies nasal congestion or sore throat [] Respiratory: Denies cough or shortness of breath [] Cardiovascular: No additional information not addressed in HPI [] GI: Denies abdominal pain, nausea, vomiting, bloody stools or diarrhea [] : Denies dysuria or hematuria [] Musculoskeletal: Denies back pain or joint pain [] Integument: Denies rash or skin lesions [] Neurologic: Denies headache, focal weakness or sensory changes [] Endocrine: Denies polyuria or polydipsia [] All other systems were reviewed and found to be within normal limits, except as documented in this note. Allergies Allergies Allergies Coded Allergies Type Severity Reaction Last Updated Verified oxycodone Allergy Severe airway reaction 01/27/14 Yes morphine Allergy Mild Nausea and Vomiting 04/28/14 No Physical Exam Physical Exam Constitutional: Well developed, well nourished, no acute distress, non-toxic appearance. [] HENT: Normocephalic, atraumatic, bilateral external ears normal, oropharynx moist, no oral exudates, nose normal. [] Eyes: PERRLA, EOMI, conjunctiva normal, no discharge. [] Neck: Normal range of motion, no tenderness, supple, no stridor. [] Cardiovascular:Heart rate regular rhythm, no murmur [] Lungs & Thorax: Bilateral breath sounds clear to auscultation [] Abdomen: Bowel sounds normal, soft, no tenderness, no masses, no pulsatile masses. [] Skin: Warm, dry, no erythema, no rash. [] Back: No tenderness, no CVA tenderness. [] Extremities: No tenderness, no cyanosis, no clubbing, ROM intact, no edema. [] Neurologic: Alert and oriented X 3, normal motor function, normal sensory function, no focal deficits noted. [] Psychologic: Affect normal, judgement normal, mood normal. [] Current Patient Data Vital Signs Vital Signs Date Time Temp Pulse Resp B/P (MAP) Pulse Ox O2 Delivery O2 Flow Rate FiO2 06/02/18 00:20 98.0 87 20 156/77 (103) 98 Room Air 98.0 EKG EKG [] Radiology/Procedures Radiology/Procedures [] Course & Med Decision Making Course & Med Decision Making Pertinent Labs and Imaging studies reviewed. (See chart for details) [] Dragon Disclaimer Dragon Disclaimer This electronic medical record was generated, in whole or in part, using a voice recognition dictation system. 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 Problem Qualifiers Additional Impression: Sciatica Laterality: bilateral Qualified Codes: M54.31 - Sciatica, right side; M54.32 - Sciatica, left side CLARY VALIENTE DO Jun 02, 2018 00:51
[2018-06-02] MEDS ORDERED: ORPHENADRINE CITRATE 60 MG/2 ML VIAL. IM ONE (01:15)
[2018-06-02] MEDS ORDERED: DEXAMETHASONE 4 MG TABLET PO ONE (01:15)
[2018-06-02] MEDS ORDERED: HYDROmorphone 2 MG/ML VIAL IM ONE (01:15)
[2018-06-02] MEDS ORDERED: CYCL10TA2 PO (21:07)
[2018-06-02] MEDS ORDERED: LEVO175T5 PO (21:07)
[2018-06-02] MEDS ORDERED: LISI-338 PO (21:07)
[2018-06-09] MEDS ORDERED: OXYC5TAB95 PO (12:14)
[2018-06-09] MEDS ORDERED: MORP15TA3 PO (12:14)
[2018-06-12] MEDS ORDERED: TIZA4CAP3 PO (09:58)
== END 2018-06-02 01:19 | disposition home or self-care (01) ==
LOC: EDBD → ER 00:01
DX: G89.29 Other chronic pain (principal); M54.41 Lumbago with sciatica, right side; M54.42 Lumbago with sciatica, left side; E03.9 Hypothyroidism, unspecified; Z90.89 Acquired absence of other organs; Z88.5 Allergy status to narcotic agent
CPT/HCPCS: 96372; 99284; J1170; J2360; J8540

== ENCOUNTER 2018-06-02 18:37 | Inpatient (IN) | payer BC ==
[~2018-06-02] VITALS: Ht 167.6 cm; Wt 118.4 kg
[2018-06-02 19:30] VITALS: BP 129/76
[2018-06-02] MEDS ORDERED: CALCIUM CARBONATE 500 MG TAB.CHEW PO PRN (20:15)
[2018-06-02] MEDS ORDERED: NALOXONE 0.4 MG/ML VIAL. IV PRN (20:15)
[2018-06-02] MEDS ORDERED: MAG HYDROX/ALUMINUM HYD/SIMETH 30 ML ORAL.SUSP PO PRN (20:15)
[2018-06-02] MEDS ORDERED: MAGNESIUM HYDROXIDE 2,400 MG/30 ML ORAL.SUSP. PO PRN (20:15)
[2018-06-02] MEDS ORDERED: 0.9 % SODIUM CHLORIDE 10 ML DISP.SYRIN. IV PRN (20:15)
[2018-06-02] MEDS: fentaNYL PF VIAL 100 MCG/2 ML VIAL IV PRN ×2 (20:50→23:25)
[2018-06-02] MEDS ORDERED: GABAPENTIN 300 MG CAPSULE. PO SCH (21:00)
[2018-06-02] MEDS ORDERED: CLOMIPRAMINE HCL PO SCH (21:00)
[2018-06-02] MEDS ORDERED: LORazepam 0.5 MG TABLET PO SCH (21:00)
[2018-06-02] MEDS ORDERED: oxyCODONE/APAP 10/325 1 TAB TABLET PO SCH (21:00)
[2018-06-02] MEDS ORDERED: CYCL10TA2 PO (21:07)
[2018-06-02] MEDS ORDERED: LISI-338 PO (21:07)
[2018-06-02] MEDS ORDERED: LEVO175T5 PO (21:07)
[2018-06-02] MEDS: GABAPENTIN 300 MG CAPSULE. PO SCH (22:18)
[2018-06-02] MEDS: oxyCODONE/APAP 10/325 1 TAB TABLET PO PRN (22:19)
[2018-06-02 23:34] VITALS: BP 115/67
[2018-06-03 00:54] LABS: BILIRUBIN,URINE NEGATIVE (NEG); CLARITY,URINE CLEAR; COLOR,URINE YELLOW; NITRITE,URINE NEGATIVE (NEG); PH,URINE 5.5; PROTEIN,URINE NEGATIVE (NEG-TRACE); UROBILINOGEN,URINE 0.2 mg/dL (0.2 mg/dL)
[2018-06-03 01:00] LABS: BACTERIA,URINE FEW /HPF (0-FEW); RBC,URINE TNTC /HPF (0-2); SQUAMOUS EPITHELIAL CELL,UR FEW /LPF; YEAST,URINE PRESENT /HPF
[2018-06-03] MEDS: fentaNYL PF VIAL 100 MCG/2 ML VIAL IV PRN ×10 (01:39→22:42)
[2018-06-03 03:22] VITALS: BP 116/62
[2018-06-03] MEDS: oxyCODONE/APAP 10/325 1 TAB TABLET PO PRN ×3 (04:28→19:01)
[2018-06-03] MEDS: PANTOPRAZOLE 40 MG TABLET.DR. PO SCH (06:36)
[2018-06-03] MEDS: LEVOTHYROXINE 175 MCG TABLET PO SCH (06:36)
[2018-06-03 07:00] VITALS: BP 107/71
[2018-06-03] MEDS: ALLOPURINOL 300 MG TABLET. PO SCH (08:55)
[2018-06-03] MEDS: CETIRIZINE HCL 10 MG TABLET. PO SCH (08:56)
[2018-06-03] MEDS: metFORMIN 500 MG TABLET PO SCH ×2 (08:56→17:54)
[2018-06-03] MEDS: glipiZIDE ER 2.5 MG TAB.ER.24 PO SCH (08:56)
[2018-06-03] MEDS: ARIPiprazole 5 MG TABLET PO SCH (08:56)
[2018-06-03] MEDS: SPIRONOLACTONE 25 MG TABLET PO SCH (08:57)
[2018-06-03] MEDS: amLODIPine BESYLATE 5 MG TABLET PO SCH (08:57)
[2018-06-03] MEDS: valACYclovir 500 MG TABLET. PO SCH (08:57)
[2018-06-03] MEDS: MULTIVITAMIN with MINERAL TABLET. PO SCH (08:57)
[2018-06-03] MEDS: CYCLOBENZAPRINE 10 MG TABLET. PO PRN ×2 (08:57→20:19)
[2018-06-03] MEDS: LISINOPRIL 5 MG TABLET. PO SCH (08:58)
[2018-06-03] MEDS ORDERED: ARIPiprazole 5 MG TABLET PO SCH (09:00)
[2018-06-03] MEDS ORDERED: NON FORMULARY ITEM (Lansoprazole (Prevacid) 1 CAP) PO SCH (09:00)
[2018-06-03] MEDS ORDERED: amLODIPine BESYLATE 5 MG TABLET PO SCH (09:00)
[2018-06-03 11:00] VITALS: BP 116/70
[2018-06-03] MEDS: ASCORBIC ACID 500 MG TABLET PO SCH (11:24)
[2018-06-03] MEDS ORDERED: methylPREDNISolone ACETATE 80 MG/ML VIAL. ONE (12:06)
[2018-06-03] MEDS ORDERED: methylPREDNISolone ACETATE 40 MG/ML VIAL. ONE (12:06)
[2018-06-03] MEDS ORDERED: IOHEXOL 180 MG/ML 10 ML VIAL. ONE (12:06)
[2018-06-03] MEDS ORDERED: LIDOCAINE 1% PF 2 ML VIAL. ONE (12:06)
--- NOTE | 2018-06-03 12:22 | HP ---
ADMIT DATE: 06/02/2018 HISTORY OF PRESENT ILLNESS: The patient is a pleasant 38-year-old. She is having difficulty with low back pain and bilateral leg pain. In 2009, she underwent 2 lumbar surgeries and in 2012, she underwent a fusion at L5-S1. Following that, she continued to have left leg pain, but it was fairly well controlled. A few months ago, her symptoms were worsening and she was seen in the office on 05/14/2018 and a lumbar myelogram was arranged. She reports that she had the myelogram and since that time, her pain has been severe. She went to the Emergency Room over the weekend and was discharged and contacted us regarding intractable pain. She reports that the pain is in her bilateral anterior thighs and radiates to the feet. She says the pain is worse when she tries to ambulate. She denies specific weakness. At home, she was taking gabapentin, Flexeril and Percocet 10. She does follow with Dr. Grossman at the pain clinic for pain medication management. PAST MEDICAL HISTORY: Thyroid disease, shingles and diabetes. PAST SURGICAL HISTORY: Lumbar surgery x 2 in 2009 and lumbar fusion at L5-S1 in 2012. CURRENT MEDICATIONS: Allopurinol, levothyroxine, lorazepam, Prilosec, Flexeril, gabapentin, amlodipine, glipizide, Invokana, lansoprazole, metformin, Percocet, spironolactone, vitamin C, multivitamin, sertraline. ALLERGIES: No known drug allergies. SOCIAL HISTORY: . Does not smoke or drink alcohol. FAMILY HISTORY: Cancer, diabetes, heart disease, hypertension, spine problems. REVIEW OF SYSTEMS: A 12-point review of systems was obtained and is negative other than mentioned above. PHYSICAL EXAMINATION: GENERAL: Alert, pleasant, in mild distress because of pain. HEAD: Normocephalic, atraumatic. SKIN: Warm and dry, well-healed lumbar incision. MUSCULOSKELETAL: Lumbar paraspinal muscle bulk is normal, restricted range of motion of the lumbar spine, mild to moderate tenderness at the lower lumbar spine with palpation, normal range of motion of the lower extremities bilaterally. EXTREMITIES: No clubbing, cyanosis or edema. NEUROLOGIC: Strength is 5/5 in the bilateral lower extremities, sensory was intact in the lower extremities bilaterally except for decrease in the anterior lateral thigh and leg. Reflexes were trace and symmetric in the lower extremities. Gait not tested. ASSESSMENT AND PLAN: She is having radicular symptoms that have continued to worsen. We will review the myelogram and develop a treatment plan. We will ask Dr. Grossman to see her regarding pain medications and possible epidural steroid injection. KEISHA MORENO MD DR: PAULINO/nguyễn JOB#: [id number] / [id number] [place]
[2018-06-03 15:00] VITALS: BP 106/56
[2018-06-03 19:30] VITALS: BP 95/43
[2018-06-03] MEDS: GABAPENTIN 300 MG CAPSULE. PO SCH (20:19)
[2018-06-03 23:30] VITALS: BP 129/70
[2018-06-04] MEDS: fentaNYL PF VIAL 100 MCG/2 ML VIAL IV PRN ×10 (03:23→23:02)
[2018-06-04 03:30] VITALS: BP 135/75
[2018-06-04] MEDS: PANTOPRAZOLE 40 MG TABLET.DR. PO SCH (05:25)
[2018-06-04] MEDS: LEVOTHYROXINE 175 MCG TABLET PO SCH (05:25)
[2018-06-04] MEDS: oxyCODONE/APAP 10/325 1 TAB TABLET PO PRN ×3 (05:26→18:08)
[2018-06-04 07:00] VITALS: BP 113/71
[2018-06-04] MEDS: glipiZIDE ER 2.5 MG TAB.ER.24 PO SCH (07:56)
[2018-06-04] MEDS: ARIPiprazole 5 MG TABLET PO SCH (07:56)
[2018-06-04] MEDS: SPIRONOLACTONE 25 MG TABLET PO SCH (07:56)
[2018-06-04] MEDS: ALLOPURINOL 300 MG TABLET. PO SCH (07:56)
[2018-06-04] MEDS: valACYclovir 500 MG TABLET. PO SCH (07:56)
[2018-06-04] MEDS: MULTIVITAMIN with MINERAL TABLET. PO SCH (07:56)
[2018-06-04] MEDS: CETIRIZINE HCL 10 MG TABLET. PO SCH (07:56)
[2018-06-04] MEDS: metFORMIN 500 MG TABLET PO SCH ×2 (07:57→16:48)
[2018-06-04] MEDS: ASCORBIC ACID 500 MG TABLET PO SCH (07:57)
[2018-06-04] MEDS: CYCLOBENZAPRINE 10 MG TABLET. PO PRN ×2 (08:03→18:07)
[2018-06-04] MEDS: amLODIPine BESYLATE 5 MG TABLET PO SCH (08:04)
[2018-06-04] MEDS: LISINOPRIL 5 MG TABLET. PO SCH (08:04)
--- NOTE | 2018-06-04 10:55 | PDOC ---
PROGRESS NOTES Subjective Subjective LESI yesterday c/o continued pain in left anterior thigh and leg, right leg pain resolved Objective Objective Vital Signs Date Time Temp Pulse Resp B/P (MAP) Pulse Ox O2 Delivery O2 Flow Rate FiO2 06/04/18 10:12 Room Air 06/04/18 08:04 66 113/71 06/04/18 07:00 97.8 18 94 97.8 Intake and Output 06/04/18 07:00 Intake Total 1400 ml Balance 1400 ml Intake Oral 1400 ml # Voids 3 Physical Exam General: Alert, Oriented X3, Cooperative, mild distress, moderate distress MUSCULOSKELETAL: Other (RODRIGUES) Neuro: Normal speech Plan Plan of Care myelogram reviewed by Dr. Fortune and d/w patient yesterday, did not see a surgical problem encouraged increased activity as tolerated, SCDs Dr. Grossman following Comment Review of Relevant I have reviewed the following items toño (where applicable) has been applied. Labs Laboratory Tests Test 06/02/18 21:02 06/03/18 00:30 06/03/18 07:23 06/03/18 11:29 Glucose (Fingerstick) 257 mg/dL (70-99) 175 mg/dL (70-99) 156 mg/dL (70-99) Urine Collection Type Unknown Urine Color Yellow Urine Clarity Clear Urine pH 5.5 Urine Specific [place] >=1.030 Urine Protein Negative mg/dL (NEG-TRACE) Urine Glucose (UA) >=1000 mg/dL (NEG) Urine Ketones (Stick) 40 mg/dL (NEG) Urine Blood Large (NEG) Urine Nitrite Negative (NEG) Urine Bilirubin Negative (NEG) Urine Urobilinogen Dipstick 0.2 mg/dL (0.2 mg/dL) Urine Leukocyte Esterase Negative (NEG) Urine RBC Tntc /HPF (0-2) Urine WBC 1-4 /HPF (0-4) Urine Squamous Epithelial Cells Few /LPF Urine Bacteria Few /HPF (0-FEW) Urine Mucus Mod /LPF Urine Yeast Present /HPF Test 06/03/18 16:43 06/03/18 20:24 06/04/18 08:04 Glucose (Fingerstick) 126 mg/dL (70-99) 142 mg/dL (70-99) 128 mg/dL (70-99) Laboratory Tests Test 06/03/18 11:29 06/03/18 16:43 06/03/18 20:24 06/04/18 08:04 Glucose (Fingerstick) 156 mg/dL (70-99) 126 mg/dL (70-99) 142 mg/dL (70-99) 128 mg/dL (70-99) Medications Current Medications Allopurinol (Zyloprim) 300 mg DAILY PO Last administered on 06/04/18at 07:56; Start 06/03/18 at 09:00 Amlodipine Besylate (Norvasc) 5 mg DAILY PO Last administered on 06/04/18at 08: 04; Start 06/03/18 at 09:00 Amlodipine Besylate (Norvasc) 5 mg DAILY PO ; Start 06/03/18 at 09:00; Status UNV Cetirizine HCl (ZyrTEC) 10 mg DAILY PO Last administered on 06/04/18at 07:56; Start 06/03/18 at 09:00 Lorazepam (Ativan) 0.5 mg HS PO ; Start 06/02/18 at 21:00; Stop 06/02/18 at 21 :33; Status DC Oxycodone/ Acetaminophen (Percocet 10/325) 1 tab BID PO ; Start 06/02/18 at 21: 00; Stop 06/02/18 at 21:33; Status DC Non-Formulary Medication (Adalimumab (Humira)) 40 mg WEEKLY SQ ; Start 06/09/18 at 09:00; Stop 06/09/18 at 09:00; Status DC Aripiprazole (Abilify) 15 mg DAILY PO ; Start 06/03/18 at 09:00; Stop at 09:00; Status DC Ascorbic Acid (Vitamin C) 1,000 mg DAILY PO Last administered on 06/04/18at 07: 57; Start 06/03/18 at 09:00 Non-Formulary Medication (Canagliflozin (Invokana)) 300 mg DAILY PO Last administered on 06/04/18at 07:57; Start 06/03/18 at 09:00 Non-Formulary Medication (Clomipramine Hcl ) 100 mg HS PO ; Start 06/02/18 at 21:00; Status UNV Gabapentin (Neurontin) 600 mg TID PO ; Start 06/02/18 at 21:00; Stop 06/02/18 at 21:33; Status DC Glipizide (Glucotrol Er) 5 mg DAILY08 PO Last administered on 06/04/18at 07:56 ; Start 06/03/18 at 08:00 Pantoprazole Sodium (Protonix) 40 mg DAILYAC PO Last administered on at 05:25; Start 06/03/18 at 07:30 Non-Formulary Medication (Lansoprazole (Prevacid)) 1 cap DAILY PO ; Start 06/03 at 09:00; Status UNV Metformin HCl (Glucophage) 1,000 mg BIDWMEALS PO Last administered on at 07:57; Start 06/03/18 at 08:00 Multivitamins (Thera M Plus) 1 tab DAILY PO Last administered on 06/04/18at 07: 56; Start 06/03/18 at 09:00 Spironolactone (Aldactone) 25 mg DAILY PO Last administered on 06/04/18at 07:56 ; Start 06/03/18 at 09:00 Valacyclovir HCl (Valtrex) 500 mg DAILY PO Last administered on 06/04/18at 07: 56; Start 06/03/18 at 09:00 Al Hydroxide/Mg Hydroxide (Mylanta Plus Xs) 30 ml PRN Q3HRS PRN PO HEARTBURN / GAS; Start 06/02/18 at 20:15 Calcium Carbonate/ Glycine (Tums) 500 mg PRN Q3HRS PRN PO INDIGESTION; Start 06/02/18 at 20:15 Diphenhydramine HCl (Benadryl) 25 mg PRN Q6HRS PRN PO ITCHING; Start 06/02/18 at 20:15 Naloxone HCl (Narcan) 0.1 mg PRN Q2MIN PRN IV ADMIN; Start 06/02/18 at 20:15 Sodium Chloride (Normal Saline Flush) 3 ml QSHIFT PRN IV AFTER MEDS AND BLOOD DRAWS; Start 06/02/18 at 20:15 Magnesium Hydroxide (Milk Of Magnesia) 2,400 mg PRN Q12HR PRN PO CONSTIPATION; Start 06/02/18 at 20:15 Fentanyl Citrate (Fentanyl 2ml Vial) 50 mcg PRN Q2HR PRN IV PAIN Last administered on 06/04/18at 10:12; Start 06/02/18 at 20:15 Aripiprazole (Abilify) 20 mg DAILY PO Last administered on 06/04/18at 07:56; Start 06/03/18 at 09:00 Gabapentin (Neurontin) 600 mg HS PO Last administered on 06/03/18at 20:19; Start 06/02/18 at 22:30 Oxycodone/ Acetaminophen (Percocet 10/325) 1 tab PRN Q6HRS PRN PO SEVERE PAIN Last administered on 06/04/18 05:26; Start 06/02/18 at 21:30 Levothyroxine Sodium (Synthroid) 175 mcg DAILY06 PO Last administered on at 05:25; Start 06/03/18 at 06:00 Cyclobenzaprine HCl (Flexeril) 10 mg PRN TID PRN PO MUSCLE SPASMS Last administered on 06/04/18at 08:03; Start 06/03/18 at 04:00 Lisinopril (Prinivil) 5 mg DAILY PO Last administered on 06/04/18at 08:04; Start 06/03/18 at 09:00 Methylprednisolone Acetate (DEPO-Medrol 40MG VIAL) 40 mg STK-MED ONCE .ROUTE ; Start 06/03/18 at 12:06; Stop 06/03/18 at 12:07; Status DC Iohexol (Omnipaque 180 Mg/ml) 10 ml STK-MED ONCE .ROUTE ; Start 06/03/18 at 12: 06; Stop 06/03/18 at 12:07; Status DC Lidocaine HCl (Xylocaine-Mpf 1% 2ml Vial) 2 ml STK-MED ONCE .ROUTE ; Start at 12:06; Stop 06/03/18 at 12:07; Status DC Methylprednisolone Acetate (DEPO-Medrol 80MG VIAL) 80 mg STK-MED ONCE .ROUTE ; Start 06/03/18 at 12:06; Stop 06/03/18 at 12:07; Status DC Active Scripts Active Reported Levothyroxine Sodium 175 Mcg Tablet 1 Tab PO DAILY Cyclobenzaprine Hcl 10 Mg Tablet 1 Tab PO TID PRN PRN Lisinopril 5 Mg Tablet 1 Tab PO DAILY Cetirizine Hcl 10 Mg Tablet 1 Tab PO DAILY Norvasc (Amlodipine Besylate) 5 Mg Tablet 1 Tab PO DAILY Percocet 10-325 Mg Tablet (Oxycodone/Acetaminophen) 1 Each Tablet 1 Tab PO PRN Q6HRS PRN Prevacid (Lansoprazole) 30 Mg Capsule. 1 Cap PO DAILY Valacyclovir (Valacyclovir Hcl) 500 Mg Tablet 1 Tab PO DAILY Spironolactone 25 Mg Tablet 1 Tab PO DAILY Invokana (Canagliflozin) 300 Mg Tablet 300 Mg PO DAILY Glipizide Er (Glipizide) 5 Mg Tab.er.24 1 Tab PO DAILY Vitamin C (Ascorbic Acid) 1,000 Mg Tablet 1,000 Mg PO DAILY Multi-Day Vitamins (Multivitamin) 1 Each Tablet 1 Tab PO DAILY Abilify (Aripiprazole) 15 Mg Tablet 20 Mg PO DAILY Metformin Hcl 1,000 Mg Tablet 1 Tab PO BID Gabapentin 300 Mg Capsule 600 Mg PO TID Allopurinol 300 Mg Tablet 1 Tab PO DAILY Vitals/I & O Vital Sign - Last 24 Hours 06/03/18 06/03/18 06/03/18 06/03/18 11:00 11:22 12:54 13:53 Temp 97.5 97.5 Pulse 67 Resp 18 16 16 B/P (MAP) 116/70 (85) Pulse Ox 96 O2 Delivery Room Air Room Air Room Air Room Air 06/03/18 06/03/18 06/03/18 06/03/18 15:00 15:59 17:57 19:01 Temp 95.9 95.9 Pulse 80 Resp 18 16 B/P (MAP) 106/56 (73) Pulse Ox 96 O2 Delivery Room Air Room Air Room Air Room Air 06/03/18 06/03/18 06/03/18 06/03/18 19:30 20:20 20:20 22:42 Temp 97.5 97.5 Pulse 80 Resp 18 18 16 B/P (MAP) 95/43 (60) Pulse Ox 95 O2 Delivery Room Air Room Air Room Air Room Air 06/03/18 06/04/18 06/04/18 06/04/18 23:30 03:23 03:30 05:26 Temp 97.8 97.5 97.8 97.5 Pulse 63 75 Resp 18 18 18 18 B/P (MAP) 129/70 (89) 135/75 (95) Pulse Ox 95 94 O2 Delivery Room Air Room Air Room Air Room Air 06/04/18 06/04/18 06/04/18 06/04/18 05:26 06:00 06:30 07:00 Temp 97.8 97.8 Pulse 66 Resp 18 18 B/P (MAP) 113/71 (85) Pulse Ox 94 O2 Delivery Room Air Room Air Room Air 06/04/18 06/04/18 06/04/18 06/04/18 07:57 08:00 08:04 08:04 Pulse 66 66 B/P (MAP) 113/71 113/71 O2 Delivery Room Air Room Air 06/04/18 06/04/18 08:30 10:12 O2 Delivery Room Air Room Air Intake and Output 06/03/18 06/03/18 06/04/18 15:00 23:00 07:00 Intake Total 300 ml 1100 ml Balance 300 ml 1100 ml KONSTANTIN NIELSEN EDUCATION TRAINER Jun 04, 2018 10:55
[2018-06-04 11:00] VITALS: BP 120/76
--- NOTE | 2018-06-04 13:58 | PDOC ---
SUBJECTIVE Subjective low back and leg pain OBJECTIVE Objective 38 yo female, known to me, C/0 low back and bilat LE pain X 4days. Wt. bearing exacerbates pain both LE's Vital Signs Vital Signs Date Time Temp Pulse Resp B/P (MAP) Pulse Ox O2 Delivery O2 Flow Rate FiO2 06/04/18 12:59 Room Air 06/04/18 12:30 Room Air 06/04/18 11:59 Room Air 06/04/18 11:59 Room Air 06/04/18 11:00 98.6 69 18 120/76 (91) 96 Room Air 98.6 06/04/18 10:12 Room Air 06/04/18 08:04 66 113/71 06/04/18 08:04 66 113/71 06/04/18 08:00 Room Air 06/04/18 07:57 Room Air 06/04/18 07:00 97.8 66 18 113/71 (85) 94 Room Air 97.8 06/04/18 06:30 18 06/04/18 06:00 16 06/04/18 05:26 18 Room Air 06/04/18 05:26 18 Room Air 06/04/18 03:30 97.5 75 18 135/75 (95) 94 Room Air 97.5 06/04/18 03:23 18 Room Air 06/03/18 23:30 97.8 63 18 129/70 (89) 95 Room Air 97.8 06/03/18 22:42 16 Room Air 06/03/18 20:20 Room Air 06/03/18 20:20 18 Room Air 06/03/18 19:30 97.5 80 18 95/43 (60) 95 Room Air 97.5 06/03/18 19:01 Room Air 06/03/18 17:57 Room Air 06/03/18 15:59 16 Room Air 06/03/18 15:00 95.9 80 18 106/56 (73) 96 Room Air 95.9 I & O Intake and Output 06/04/18 07:00 Intake Total 1400 ml Balance 1400 ml Intake Oral 1400 ml # Voids 3 PHYSICAL EXAM Physical Exam A&O X 3 MUSCULOSKELETAL: Lumbar paraspinal muscle bulk is normal, restricted range of motion of the lumbar spine, mild to moderate tenderness at the lower lumbar spine with palpation, normal range of motion of the LE's bilaterally. NEUROLOGIC: Strength is 5/5 in the bilateral lower extremities, sensory was intact in the lower extremities bilaterally except for decrease in the anterior lateral thigh and leg. Reflexes 1+ and symmetric in the lower extremities ASSESSMENT/PLAN Assessment/Plan Plan HAILEY Paez F/U as OP COMMENT Lab Laboratory Tests Test 06/03/18 16:43 06/03/18 20:24 06/04/18 08:04 06/04/18 12:00 Glucose (Fingerstick) 126 mg/dL (70-99) 142 mg/dL (70-99) 128 mg/dL (70-99) 157 mg/dL (70-99) FLYNN ALONSO MD Jun 04, 2018 13:57
[2018-06-04 15:00] VITALS: BP 123/71
[2018-06-04 19:30] VITALS: BP 111/66
[2018-06-04] MEDS: GABAPENTIN 300 MG CAPSULE. PO SCH (21:03)
[2018-06-04 23:34] VITALS: BP 110/64
[2018-06-05] MEDS: CYCLOBENZAPRINE 10 MG TABLET. PO PRN ×3 (02:38→21:07)
[2018-06-05] MEDS: fentaNYL PF VIAL 100 MCG/2 ML VIAL IV PRN ×13 (02:38→23:46)
[2018-06-05 03:23] VITALS: BP 113/66
[2018-06-05] MEDS: PANTOPRAZOLE 40 MG TABLET.DR. PO SCH (05:23)
[2018-06-05] MEDS: oxyCODONE/APAP 10/325 1 TAB TABLET PO PRN ×4 (05:23→21:07)
[2018-06-05] MEDS: LEVOTHYROXINE 175 MCG TABLET PO SCH (05:23)
[2018-06-05 07:00] VITALS: BP 112/62
[2018-06-05] MEDS: amLODIPine BESYLATE 5 MG TABLET PO SCH (09:00)
[2018-06-05] MEDS: LISINOPRIL 5 MG TABLET. PO SCH (09:00)
[2018-06-05] MEDS: DOCUSATE SODIUM 100 MG CAPSULE. PO SCH (09:26)
[2018-06-05] MEDS: ALLOPURINOL 300 MG TABLET. PO SCH (09:27)
[2018-06-05] MEDS: ARIPiprazole 5 MG TABLET PO SCH (09:27)
[2018-06-05] MEDS: glipiZIDE ER 2.5 MG TAB.ER.24 PO SCH (09:27)
[2018-06-05] MEDS: SPIRONOLACTONE 25 MG TABLET PO SCH (09:28)
[2018-06-05] MEDS: valACYclovir 500 MG TABLET. PO SCH (09:28)
[2018-06-05] MEDS: metFORMIN 500 MG TABLET PO SCH ×2 (09:28→16:36)
[2018-06-05] MEDS: CETIRIZINE HCL 10 MG TABLET. PO SCH (09:28)
[2018-06-05] MEDS: MULTIVITAMIN with MINERAL TABLET. PO SCH (09:28)
[2018-06-05] MEDS: ASCORBIC ACID 500 MG TABLET PO SCH (09:28)
[2018-06-05 11:00] VITALS: BP 110/56
--- NOTE | 2018-06-05 13:35 | PDOC ---
PROGRESS NOTES Subjective Subjective sitting up in chair still back and left leg pain Objective Objective Vital Signs Date Time Temp Pulse Resp B/P (MAP) Pulse Ox O2 Delivery O2 Flow Rate FiO2 06/05/18 13:14 94 Room Air 06/05/18 11:00 98.1 68 18 110/56 (74) 98.1 Intake and Output 06/05/18 07:00 Intake Total 720 ml Balance 720 ml Intake Oral 720 ml # Voids 10 Physical Exam General: Alert, Oriented X3, Cooperative MUSCULOSKELETAL: Other (RODRIGUES) Neuro: Normal speech Plan Plan of Care encouraged increased activity as tolerated SCDs Dr. Grossman made adjustments to medication will follow Comment Review of Relevant I have reviewed the following items toño (where applicable) has been applied. Labs Laboratory Tests Test 06/03/18 16:43 06/03/18 20:24 06/04/18 08:04 06/04/18 12:00 Glucose (Fingerstick) 126 mg/dL (70-99) 142 mg/dL (70-99) 128 mg/dL (70-99) 157 mg/dL (70-99) Test 06/04/18 17:33 06/04/18 21:10 06/05/18 07:55 06/05/18 10:56 Glucose (Fingerstick) 117 mg/dL (70-99) 141 mg/dL (70-99) 122 mg/dL (70-99) 154 mg/dL (70-99) Laboratory Tests Test 06/04/18 17:33 06/04/18 21:10 06/05/18 07:55 06/05/18 10:56 Glucose (Fingerstick) 117 mg/dL (70-99) 141 mg/dL (70-99) 122 mg/dL (70-99) 154 mg/dL (70-99) Medications Current Medications Allopurinol (Zyloprim) 300 mg DAILY PO Last administered on 06/05/18at 09:27; Start 06/03/18 at 09:00 Amlodipine Besylate (Norvasc) 5 mg DAILY PO Last administered on 06/04/18at 08: 04; Start 06/03/18 at 09:00 Amlodipine Besylate (Norvasc) 5 mg DAILY PO ; Start 06/03/18 at 09:00; Status UNV Cetirizine HCl (ZyrTEC) 10 mg DAILY PO Last administered on 06/05/18at 09:28; Start 06/03/18 at 09:00 Lorazepam (Ativan) 0.5 mg HS PO ; Start 06/02/18 at 21:00; Stop 06/02/18 at 21 :33; Status DC Oxycodone/ Acetaminophen (Percocet 10/325) 1 tab BID PO ; Start 06/02/18 at 21: 00; Stop 06/02/18 at 21:33; Status DC Non-Formulary Medication (Adalimumab (Humira)) 40 mg WEEKLY SQ ; Start 06/09/18 at 09:00; Stop 06/09/18 at 09:00; Status DC Aripiprazole (Abilify) 15 mg DAILY PO ; Start 06/03/18 at 09:00; Stop at 09:00; Status DC Ascorbic Acid (Vitamin C) 1,000 mg DAILY PO Last administered on 06/05/18at 09: 28; Start 06/03/18 at 09:00 Non-Formulary Medication (Canagliflozin (Invokana)) 300 mg DAILY PO Last administered on 06/05/18at 09:25; Start 06/03/18 at 09:00 Non-Formulary Medication (Clomipramine Hcl ) 100 mg HS PO ; Start 06/02/18 at 21:00; Status UNV Gabapentin (Neurontin) 600 mg TID PO ; Start 06/02/18 at 21:00; Stop 06/02/18 at 21:33; Status DC Glipizide (Glucotrol Er) 5 mg DAILY08 PO Last administered on 06/05/18at 09:27 ; Start 06/03/18 at 08:00 Pantoprazole Sodium (Protonix) 40 mg DAILYAC PO Last administered on at 05:23; Start 06/03/18 at 07:30 Non-Formulary Medication (Lansoprazole (Prevacid)) 1 cap DAILY PO ; Start 06/03 at 09:00; Status UNV Metformin HCl (Glucophage) 1,000 mg BIDWMEALS PO Last administered on at 09:28; Start 06/03/18 at 08:00 Multivitamins (Thera M Plus) 1 tab DAILY PO Last administered on 06/05/18at 09: 28; Start 06/03/18 at 09:00 Spironolactone (Aldactone) 25 mg DAILY PO Last administered on 06/05/18at 09:28 ; Start 06/03/18 at 09:00 Valacyclovir HCl (Valtrex) 500 mg DAILY PO Last administered on 06/05/18at 09: 28; Start 06/03/18 at 09:00 Al Hydroxide/Mg Hydroxide (Mylanta Plus Xs) 30 ml PRN Q3HRS PRN PO HEARTBURN / GAS; Start 06/02/18 at 20:15 Calcium Carbonate/ Glycine (Tums) 500 mg PRN Q3HRS PRN PO INDIGESTION; Start 06/02/18 at 20:15 Diphenhydramine HCl (Benadryl) 25 mg PRN Q6HRS PRN PO ITCHING; Start 06/02/18 at 20:15 Naloxone HCl (Narcan) 0.1 mg PRN Q2MIN PRN IV ADMIN; Start 06/02/18 at 20:15 Sodium Chloride (Normal Saline Flush) 3 ml QSHIFT PRN IV AFTER MEDS AND BLOOD DRAWS; Start 06/02/18 at 20:15 Magnesium Hydroxide (Milk Of Magnesia) 2,400 mg PRN Q12HR PRN PO CONSTIPATION; Start 06/02/18 at 20:15 Fentanyl Citrate (Fentanyl 2ml Vial) 50 mcg PRN Q2HR PRN IV MODERATE PAIN Last administered on 06/04/18at 14:43; Start 06/02/18 at 20:15; Stop 06/05/18 at 09 :44; Status DC Aripiprazole (Abilify) 20 mg DAILY PO Last administered on 06/05/18at 09:27; Start 06/03/18 at 09:00 Gabapentin (Neurontin) 600 mg HS PO Last administered on 06/04/18at 21:03; Start 06/02/18 at 22:30 Oxycodone/ Acetaminophen (Percocet 10/325) 1 tab PRN Q6HRS PRN PO SEVERE PAIN Last administered on 06/05/18at 05:23; Start 06/02/18 at 21:30; Stop 06/05/18 at 10:52; Status DC Levothyroxine Sodium (Synthroid) 175 mcg DAILY06 PO Last administered on at 05:23; Start 06/03/18 at 06:00 Cyclobenzaprine HCl (Flexeril) 10 mg PRN TID PRN PO MUSCLE SPASMS Last administered on 06/05/18at 13:14; Start 06/03/18 at 04:00 Lisinopril (Prinivil) 5 mg DAILY PO Last administered on 06/04/18at 08:04; Start 06/03/18 at 09:00 Methylprednisolone Acetate (DEPO-Medrol 40MG VIAL) 40 mg STK-MED ONCE .ROUTE ; Start 06/03/18 at 12:06; Stop 06/03/18 at 12:07; Status DC Iohexol (Omnipaque 180 Mg/ml) 10 ml STK-MED ONCE .ROUTE ; Start 06/03/18 at 12: 06; Stop 06/03/18 at 12:07; Status DC Lidocaine HCl (Xylocaine-Mpf 1% 2ml Vial) 2 ml STK-MED ONCE .ROUTE ; Start at 12:06; Stop 06/03/18 at 12:07; Status DC Methylprednisolone Acetate (DEPO-Medrol 80MG VIAL) 80 mg STK-MED ONCE .ROUTE ; Start 06/03/18 at 12:06; Stop 06/03/18 at 12:07; Status DC Fentanyl Citrate (Fentanyl 2ml Vial) 100 mcg PRN Q2HR PRN IV SEVERE PAIN Last administered on 06/05/18at 07:36; Start 06/04/18 at 16:45; Stop 06/05/18 at 09 :44; Status DC Docusate Sodium (Colace) 100 mg DAILY PO Last administered on 06/05/18at 09:26 ; Start 06/05/18 at 09:00 Fentanyl Citrate (Fentanyl 2ml Vial) 50 mcg PRN Q1HR PRN IV PAIN Last administered on 06/05/18at 13:14; Start 06/05/18 at 09:45 Oxycodone/ Acetaminophen (Percocet 10/325) 2 tab PRN Q4HRS PRN PO PAIN Last administered on 06/05/18at 11:01; Start 06/05/18 at 11:00 Active Scripts Active Reported Levothyroxine Sodium 175 Mcg Tablet 1 Tab PO DAILY Cyclobenzaprine Hcl 10 Mg Tablet 1 Tab PO TID PRN PRN Lisinopril 5 Mg Tablet 1 Tab PO DAILY Cetirizine Hcl 10 Mg Tablet 1 Tab PO DAILY Norvasc (Amlodipine Besylate) 5 Mg Tablet 1 Tab PO DAILY Percocet 10-325 Mg Tablet (Oxycodone/Acetaminophen) 1 Each Tablet 1 Tab PO PRN Q6HRS PRN Prevacid (Lansoprazole) 30 Mg Capsule.dr 1 Cap PO DAILY Valacyclovir (Valacyclovir Hcl) 500 Mg Tablet 1 Tab PO DAILY Spironolactone 25 Mg Tablet 1 Tab PO DAILY Invokana (Canagliflozin) 300 Mg Tablet 300 Mg PO DAILY Glipizide Er (Glipizide) 5 Mg Tab.er.24 1 Tab PO DAILY Vitamin C (Ascorbic Acid) 1,000 Mg Tablet 1,000 Mg PO DAILY Multi-Day Vitamins (Multivitamin) 1 Each Tablet 1 Tab PO DAILY Abilify (Aripiprazole) 15 Mg Tablet 20 Mg PO DAILY Metformin Hcl 1,000 Mg Tablet 1 Tab PO BID Gabapentin 300 Mg Capsule 600 Mg PO TID Allopurinol 300 Mg Tablet 1 Tab PO DAILY Vitals/I & O Vital Sign - Last 24 Hours 06/04/18 06/04/18 06/04/18 06/04/18 14:43 15:00 15:13 16:49 Temp 98.0 98.0 Pulse 82 Resp 18 B/P (MAP) 123/71 (88) Pulse Ox 96 O2 Delivery Room Air Room Air Room Air Room Air 06/04/18 06/04/18 06/04/18 06/04/18 18:08 19:04 19:30 20:20 Temp 97.6 97.6 Pulse 71 Resp 18 B/P (MAP) 111/66 (81) Pulse Ox 97 O2 Delivery Room Air Room Air Room Air Room Air 06/04/18 06/04/18 06/04/18 06/05/18 21:04 23:02 23:34 02:38 Temp 97.6 97.6 Pulse 68 Resp 18 B/P (MAP) 110/64 (79) Pulse Ox 94 O2 Delivery Room Air Room Air Room Air Room Air 06/05/18 06/05/18 06/05/18 06/05/18 03:23 05:23 05:27 07:00 Temp 97.8 97.8 Pulse 66 59 Resp 18 18 B/P (MAP) 113/66 (82) 112/62 (79) Pulse Ox 94 93 O2 Delivery Room Air Room Air Room Air Room Air 06/05/18 06/05/18 06/05/18 06/05/18 07:17 07:36 09:00 09:00 Pulse 59 59 B/P (MAP) 112/62 112/62 Pulse Ox 94 94 O2 Delivery Room Air Room Air 06/05/18 06/05/18 06/05/18 06/05/18 09:28 10:05 11:00 11:01 Temp 98.1 98.1 Pulse 68 Resp 18 B/P (MAP) 110/56 (74) Pulse Ox 94 95 94 O2 Delivery Room Air Room Air Room Air Room Air 06/05/18 06/05/18 06/05/18 06/05/18 11:59 12:18 12:18 13:14 Pulse Ox 94 94 94 94 O2 Delivery Room Air Room Air Room Air Room Air Intake and Output 06/04/18 06/04/18 06/05/18 15:00 23:00 07:00 Intake Total 720 ml Balance 720 ml KONSTANTIN NIELSEN APRN Jun 05, 2018 13:35
[2018-06-05 13:41] LABS: BASO % 0 % (0-3); EOS # 0.1 x10^3/uL (0.0-0.7); EOS % 1 % (0-3); HEMATOCRIT 43.9 % (36.0-47.0); HEMOGLOBIN 15.1 g/dL (12.0-15.5); LYMPH # 2.4 x10^3/uL (1.0-4.8); LYMPH % 22 % (24-48); MEAN CORPUSCULAR HEMOGLOBIN 33 pg (25-35); MEAN CORPUSCULAR HGB CONC 35 g/dL (31-37); MEAN CORPUSCULAR VOLUME 97 fL (79-100); MONO # 0.8 x10^3/uL (0.0-1.1); MONO % 8 % (0-9); NEUT # 7.6 x10^3uL (1.8-7.7); NEUT % 70 % (31-73); PLATELET COUNT 282 x10^3/uL (140-400); RED BLOOD COUNT 4.54 x10^6/uL (3.50-5.40); RED CELL DISTRIBUTION WIDTH 14.9 % (11.5-14.5); WHITE BLOOD COUNT 10.9 x10^3/uL (4.0-11.0)
[2018-06-05 14:08] LABS: CALCIUM 9.3 mg/dL (8.5-10.1); CREATININE 0.7 mg/dL (0.6-1.0); GFR 94.2; POTASSIUM 3.9 mmol/L (3.5-5.1)
[2018-06-05 15:00] VITALS: BP 86/54
[2018-06-05 19:00] VITALS: BP 114/69
[2018-06-05] MEDS: GABAPENTIN 300 MG CAPSULE. PO SCH (20:00)
[2018-06-05] MEDS: diphenhydrAMINE HCL 25 MG CAPSULE PO PRN (21:07)
[2018-06-05 23:00] VITALS: BP 120/69
[2018-06-06] MEDS: oxyCODONE/APAP 10/325 1 TAB TABLET PO PRN ×6 (01:52→22:56)
[2018-06-06] MEDS: fentaNYL PF VIAL 100 MCG/2 ML VIAL IV PRN ×16 (01:52→22:54)
[2018-06-06 02:54] VITALS: BP 120/55
[2018-06-06] MEDS: LEVOTHYROXINE 175 MCG TABLET PO SCH (06:04)
[2018-06-06] MEDS: CYCLOBENZAPRINE 10 MG TABLET. PO PRN ×2 (06:04→17:10)
[2018-06-06] MEDS: PANTOPRAZOLE 40 MG TABLET.DR. PO SCH (06:04)
[2018-06-06 07:00] VITALS: BP 113/71
[2018-06-06] MEDS: metFORMIN 500 MG TABLET PO SCH ×2 (07:12→17:06)
[2018-06-06] MEDS: LISINOPRIL 5 MG TABLET. PO SCH (08:48)
[2018-06-06] MEDS: glipiZIDE ER 2.5 MG TAB.ER.24 PO SCH (08:49)
[2018-06-06] MEDS: amLODIPine BESYLATE 5 MG TABLET PO SCH (08:49)
[2018-06-06] MEDS: MULTIVITAMIN with MINERAL TABLET. PO SCH (08:49)
[2018-06-06] MEDS: ARIPiprazole 5 MG TABLET PO SCH (08:49)
[2018-06-06] MEDS: CETIRIZINE HCL 10 MG TABLET. PO SCH (08:49)
[2018-06-06] MEDS: SPIRONOLACTONE 25 MG TABLET PO SCH (08:50)
[2018-06-06] MEDS: ASCORBIC ACID 500 MG TABLET PO SCH (08:50)
[2018-06-06] MEDS: ALLOPURINOL 300 MG TABLET. PO SCH (08:50)
[2018-06-06] MEDS: DOCUSATE SODIUM 100 MG CAPSULE. PO SCH (08:50)
[2018-06-06] MEDS: valACYclovir 500 MG TABLET. PO SCH (08:50)
--- NOTE | 2018-06-06 10:36 | PDOC ---
PROGRESS NOTES Subjective Subjective sitting up in bed pain still in back and left leg, slightly improved today Objective Objective Vital Signs Date Time Temp Pulse Resp B/P (MAP) Pulse Ox O2 Delivery O2 Flow Rate FiO2 06/06/18 10:04 94 Room Air 06/06/18 08:49 70 113/71 06/06/18 07:00 97.7 18 97.7 Intake and Output 06/06/18 07:00 Intake Total 900 ml Balance 900 ml Intake Oral 900 ml # Voids 5 # Bowel Movements 2 Physical Exam General: Alert, Oriented X3, Cooperative MUSCULOSKELETAL: Other (RODRIGUES, tenderness with palpation of lower lumbar spine) Plan Plan of Care medications changed per Dr. Grossman, helping encouraged increased activity as tolerated will follow Comment Review of Relevant I have reviewed the following items toño (where applicable) has been applied. Labs Laboratory Tests Test 06/04/18 12:00 06/04/18 17:33 06/04/18 21:10 06/05/18 07:55 Glucose (Fingerstick) 157 mg/dL (70-99) 117 mg/dL (70-99) 141 mg/dL (70-99) 122 mg/dL (70-99) Test 06/05/18 10:56 06/05/18 13:30 06/05/18 17:04 06/05/18 20:17 Glucose (Fingerstick) 154 mg/dL (70-99) 122 mg/dL (70-99) 174 mg/dL (70-99) White Blood Count 10.9 x10^3/uL (4.0-11.0) Red Blood Count 4.54 x10^6/uL (3.50-5.40) Hemoglobin 15.1 g/dL (12.0-15.5) Hematocrit 43.9 % (36.0-47.0) Mean Corpuscular Volume 97 fL (79-100) Mean Corpuscular Hemoglobin 33 pg (25-35) Mean Corpuscular Hemoglobin Concent 35 g/dL (31-37) Red Cell Distribution Width 14.9 % (11.5-14.5) Platelet Count 282 x10^3/uL (140-400) Neutrophils (%) (Auto) 70 % (31-73) Lymphocytes (%) (Auto) 22 % (24-48) Monocytes (%) (Auto) 8 % (0-9) Eosinophils (%) (Auto) 1 % (0-3) Basophils (%) (Auto) 0 % (0-3) Neutrophils # (Auto) 7.6 x10^3uL (1.8-7.7) Lymphocytes # (Auto) 2.4 x10^3/uL (1.0-4.8) Monocytes # (Auto) 0.8 x10^3/uL (0.0-1.1) Eosinophils # (Auto) 0.1 x10^3/uL (0.0-0.7) Basophils # (Auto) 0.0 x10^3/uL (0.0-0.2) Sodium Level 140 mmol/L (136-145) Potassium Level 3.9 mmol/L (3.5-5.1) Chloride Level 101 mmol/L (98-107) Carbon Dioxide Level 28 mmol/L (21-32) Anion Gap 11 (6-14) Blood Urea Nitrogen 13 mg/dL (7-20) Creatinine 0.7 mg/dL (0.6-1.0) Estimated GFR (Cockcroft-Gault) 94.2 Glucose Level 146 mg/dL (70-99) Calcium Level 9.3 mg/dL (8.5-10.1) Test 06/06/18 07:41 Glucose (Fingerstick) 132 mg/dL (70-99) Laboratory Tests Test 06/05/18 10:56 06/05/18 13:30 06/05/18 17:04 06/05/18 20:17 Glucose (Fingerstick) 154 mg/dL (70-99) 122 mg/dL (70-99) 174 mg/dL (70-99) White Blood Count 10.9 x10^3/uL (4.0-11.0) Red Blood Count 4.54 x10^6/uL (3.50-5.40) Hemoglobin 15.1 g/dL (12.0-15.5) Hematocrit 43.9 % (36.0-47.0) Mean Corpuscular Volume 97 fL (79-100) Mean Corpuscular Hemoglobin 33 pg (25-35) Mean Corpuscular Hemoglobin Concent 35 g/dL (31-37) Red Cell Distribution Width 14.9 % (11.5-14.5) Platelet Count 282 x10^3/uL (140-400) Neutrophils (%) (Auto) 70 % (31-73) Lymphocytes (%) (Auto) 22 % (24-48) Monocytes (%) (Auto) 8 % (0-9) Eosinophils (%) (Auto) 1 % (0-3) Basophils (%) (Auto) 0 % (0-3) Neutrophils # (Auto) 7.6 x10^3uL (1.8-7.7) Lymphocytes # (Auto) 2.4 x10^3/uL (1.0-4.8) Monocytes # (Auto) 0.8 x10^3/uL (0.0-1.1) Eosinophils # (Auto) 0.1 x10^3/uL (0.0-0.7) Basophils # (Auto) 0.0 x10^3/uL (0.0-0.2) Sodium Level 140 mmol/L (136-145) Potassium Level 3.9 mmol/L (3.5-5.1) Chloride Level 101 mmol/L (98-107) Carbon Dioxide Level 28 mmol/L (21-32) Anion Gap 11 (6-14) Blood Urea Nitrogen 13 mg/dL (7-20) Creatinine 0.7 mg/dL (0.6-1.0) Estimated GFR (Cockcroft-Gault) 94.2 Glucose Level 146 mg/dL (70-99) Calcium Level 9.3 mg/dL (8.5-10.1) Test 06/06/18 07:41 Glucose (Fingerstick) 132 mg/dL (70-99) Medications Current Medications Allopurinol (Zyloprim) 300 mg DAILY PO Last administered on 06/06/18at 08:50; Start 06/03/18 at 09:00 Amlodipine Besylate (Norvasc) 5 mg DAILY PO Last administered on 06/06/18at 08: 49; Start 06/03/18 at 09:00 Amlodipine Besylate (Norvasc) 5 mg DAILY PO ; Start 06/03/18 at 09:00; Status UNV Cetirizine HCl (ZyrTEC) 10 mg DAILY PO Last administered on 06/06/18at 08:49; Start 06/03/18 at 09:00 Lorazepam (Ativan) 0.5 mg HS PO ; Start 06/02/18 at 21:00; Stop 06/02/18 at 21 :33; Status DC Oxycodone/ Acetaminophen (Percocet 10/325) 1 tab BID PO ; Start 06/02/18 at 21: 00; Stop 06/02/18 at 21:33; Status DC Non-Formulary Medication (Adalimumab (Humira)) 40 mg WEEKLY SQ ; Start 06/09/18 at 09:00; Stop 06/09/18 at 09:00; Status DC Aripiprazole (Abilify) 15 mg DAILY PO ; Start 06/03/18 at 09:00; Stop at 09:00; Status DC Ascorbic Acid (Vitamin C) 1,000 mg DAILY PO Last administered on 06/06/18at 08: 50; Start 06/03/18 at 09:00 Non-Formulary Medication (Canagliflozin (Invokana)) 300 mg DAILY PO Last administered on 06/05/18at 09:25; Start 06/03/18 at 09:00 Non-Formulary Medication (Clomipramine Hcl ) 100 mg HS PO ; Start 06/02/18 at 21:00; Status UNV Gabapentin (Neurontin) 600 mg TID PO ; Start 06/02/18 at 21:00; Stop 06/02/18 at 21:33; Status DC Glipizide (Glucotrol Er) 5 mg DAILY08 PO Last administered on 06/06/18at 08:49; Start 06/03/18 at 08:00 Pantoprazole Sodium (Protonix) 40 mg DAILYAC PO Last administered on 06/06/18at 06:04; Start 06/03/18 at 07:30 Non-Formulary Medication (Lansoprazole (Prevacid)) 1 cap DAILY PO ; Start 06/03 at 09:00; Status UNV Metformin HCl (Glucophage) 1,000 mg BIDWMEALS PO Last administered on at 07:12; Start 06/03/18 at 08:00 Multivitamins (Thera M Plus) 1 tab DAILY PO Last administered on 06/06/18at 08: 49; Start 06/03/18 at 09:00 Spironolactone (Aldactone) 25 mg DAILY PO Last administered on 06/06/18at 08:50 ; Start 06/03/18 at 09:00 Valacyclovir HCl (Valtrex) 500 mg DAILY PO Last administered on 06/06/18at 08:50 ; Start 06/03/18 at 09:00 Al Hydroxide/Mg Hydroxide (Mylanta Plus Xs) 30 ml PRN Q3HRS PRN PO HEARTBURN / GAS; Start 06/02/18 at 20:15 Calcium Carbonate/ Glycine (Tums) 500 mg PRN Q3HRS PRN PO INDIGESTION; Start 06/02/18 at 20:15 Diphenhydramine HCl (Benadryl) 25 mg PRN Q6HRS PRN PO ITCHING Last administered on 06/05/18at 21:07; Start 06/02/18 at 20:15 Naloxone HCl (Narcan) 0.1 mg PRN Q2MIN PRN IV ADMIN; Start 06/02/18 at 20:15 Sodium Chloride (Normal Saline Flush) 3 ml QSHIFT PRN IV AFTER MEDS AND BLOOD DRAWS; Start 06/02/18 at 20:15 Magnesium Hydroxide (Milk Of Magnesia) 2,400 mg PRN Q12HR PRN PO CONSTIPATION; Start 06/02/18 at 20:15 Fentanyl Citrate (Fentanyl 2ml Vial) 50 mcg PRN Q2HR PRN IV MODERATE PAIN Last administered on 06/04/18at 14:43; Start 06/02/18 at 20:15; Stop 06/05/18 at 09 :44; Status DC Aripiprazole (Abilify) 20 mg DAILY PO Last administered on 06/06/18at 08:49; Start 06/03/18 at 09:00 Gabapentin (Neurontin) 600 mg HS PO Last administered on 06/05/18at 20:00; Start 06/02/18 at 22:30 Oxycodone/ Acetaminophen (Percocet 10/325) 1 tab PRN Q6HRS PRN PO SEVERE PAIN Last administered on 06/05/18at 05:23; Start 06/02/18 at 21:30; Stop 06/05/18 at 10:52; Status DC Levothyroxine Sodium (Synthroid) 175 mcg DAILY06 PO Last administered on at 06:04; Start 06/03/18 at 06:00 Cyclobenzaprine HCl (Flexeril) 10 mg PRN TID PRN PO MUSCLE SPASMS Last administered on 06/06/18at 06:04; Start 06/03/18 at 04:00 Lisinopril (Prinivil) 5 mg DAILY PO Last administered on 06/06/18at 08:48; Start 06/03/18 at 09:00 Methylprednisolone Acetate (DEPO-Medrol 40MG VIAL) 40 mg STK-MED ONCE .ROUTE ; Start 06/03/18 at 12:06; Stop 06/03/18 at 12:07; Status DC Iohexol (Omnipaque 180 Mg/ml) 10 ml STK-MED ONCE .ROUTE ; Start 06/03/18 at 12: 06; Stop 06/03/18 at 12:07; Status DC Lidocaine HCl (Xylocaine-Mpf 1% 2ml Vial) 2 ml STK-MED ONCE .ROUTE ; Start at 12:06; Stop 06/03/18 at 12:07; Status DC Methylprednisolone Acetate (DEPO-Medrol 80MG VIAL) 80 mg STK-MED ONCE .ROUTE ; Start 06/03/18 at 12:06; Stop 06/03/18 at 12:07; Status DC Fentanyl Citrate (Fentanyl 2ml Vial) 100 mcg PRN Q2HR PRN IV SEVERE PAIN Last administered on 06/05/18at 07:36; Start 06/04/18 at 16:45; Stop 06/05/18 at 09 :44; Status DC Docusate Sodium (Colace) 100 mg DAILY PO Last administered on 06/06/18at 08:50; Start 06/05/18 at 09:00 Fentanyl Citrate (Fentanyl 2ml Vial) 50 mcg PRN Q1HR PRN IV PAIN Last administered on 06/06/18at 10:04; Start 06/05/18 at 09:45 Oxycodone/ Acetaminophen (Percocet 10/325) 2 tab PRN Q4HRS PRN PO PAIN Last administered on 06/06/18at 10:03; Start 06/05/18 at 11:00 Active Scripts Active Reported Levothyroxine Sodium 175 Mcg Tablet 1 Tab PO DAILY Cyclobenzaprine Hcl 10 Mg Tablet 1 Tab PO TID PRN PRN Lisinopril 5 Mg Tablet 1 Tab PO DAILY Cetirizine Hcl 10 Mg Tablet 1 Tab PO DAILY Norvasc (Amlodipine Besylate) 5 Mg Tablet 1 Tab PO DAILY Percocet 10-325 Mg Tablet (Oxycodone/Acetaminophen) 1 Each Tablet 1 Tab PO PRN Q6HRS PRN Prevacid (Lansoprazole) 30 Mg Capsule. 1 Cap PO DAILY Valacyclovir (Valacyclovir Hcl) 500 Mg Tablet 1 Tab PO DAILY Spironolactone 25 Mg Tablet 1 Tab PO DAILY Invokana (Canagliflozin) 300 Mg Tablet 300 Mg PO DAILY Glipizide Er (Glipizide) 5 Mg Tab.er.24 1 Tab PO DAILY Vitamin C (Ascorbic Acid) 1,000 Mg Tablet 1,000 Mg PO DAILY Multi-Day Vitamins (Multivitamin) 1 Each Tablet 1 Tab PO DAILY Abilify (Aripiprazole) 15 Mg Tablet 20 Mg PO DAILY Metformin Hcl 1,000 Mg Tablet 1 Tab PO BID Gabapentin 300 Mg Capsule 600 Mg PO TID Allopurinol 300 Mg Tablet 1 Tab PO DAILY Vitals/I & O Vital Sign - Last 24 Hours 06/05/18 06/05/18 06/05/18 06/05/18 11:00 11:01 11:59 13:14 Temp 98.1 98.1 Pulse 68 Resp 18 B/P (MAP) 110/56 (74) Pulse Ox 95 94 94 94 O2 Delivery Room Air Room Air Room Air Room Air 06/05/18 06/05/18 06/05/18 06/05/18 14:27 15:00 16:35 16:36 Temp 98.1 98.1 Pulse 72 Resp 18 B/P (MAP) 86/54 (65) Pulse Ox 94 94 94 94 O2 Delivery Room Air Room Air Room Air Room Air 06/05/18 06/05/18 06/05/18 06/05/18 17:57 19:00 19:37 20:00 Temp 97.9 97.9 Pulse 82 Resp 18 B/P (MAP) 114/69 (84) Pulse Ox 94 94 94 O2 Delivery Room Air Room Air Room Air Room Air 06/05/18 06/05/18 06/05/18 06/05/18 21:07 21:11 22:20 23:00 Temp 98.1 98.1 Pulse 74 Resp 20 20 18 18 B/P (MAP) 120/69 (86) Pulse Ox 94 94 94 95 O2 Delivery Room Air Room Air Room Air Room Air 06/05/18 06/06/18 06/06/1806/06/18 23:46 01:52 01:52 02:52 Resp 20 20 20 20 Pulse Ox 95 95 95 O2 Delivery Room Air Room Air Room Air 06/06/18 06/06/18 06/06/18 06/06/18 02:54 03:18 04:59 06:05 Pulse 67 Resp 18 20 20 20 B/P (MAP) 120/55 (76) Pulse Ox 94 94 94 94 O2 Delivery Room Air Room Air Room Air Room Air 06/06/18 06/06/18 06/06/18 06/06/18 06:06 06:36 07:00 07:13 Temp 97.7 97.7 Pulse 70 Resp 20 18 18 B/P (MAP) 113/71 (85) Pulse Ox 94 92 94 O2 Delivery Room Air Room Air Room Air 06/06/18 06/06/18 06/06/18 06/06/18 07:15 08:06 08:30 08:47 Pulse Ox 94 94 94 O2 Delivery Room Air Room Air Room Air Room Air 06/06/18 06/06/18 06/06/18 06/06/18 08:48 08:49 10:03 10:04 Pulse 70 70 B/P (MAP) 113/71 113/71 Pulse Ox 94 94 O2 Delivery Room Air Room Air Intake and Output 06/05/18 06/05/18 06/06/18 15:00 23:00 07:00 Intake Total 180 ml 470 ml 250 ml Balance 180 ml 470 ml 250 ml KEISHA MORENO MD Jun 06, 2018 10:36
[2018-06-06 11:00] VITALS: BP 122/68
[2018-06-06] MEDS: KETOROLAC 15 MG/ML VIAL. IV PRN ×3 (11:25→23:38)
[2018-06-06 15:00] VITALS: BP 135/75
[2018-06-06] MEDS: diphenhydrAMINE HCL 25 MG CAPSULE PO PRN ×2 (17:13→23:37)
[2018-06-06 19:00] VITALS: BP 129/72
[2018-06-06] MEDS: GABAPENTIN 300 MG CAPSULE. PO SCH (20:42)
[2018-06-06 23:00] VITALS: BP 135/69
[2018-06-07] MEDS: fentaNYL PF VIAL 100 MCG/2 ML VIAL IV PRN ×20 (00:28→23:19)
[2018-06-07] MEDS: CYCLOBENZAPRINE 10 MG TABLET. PO PRN ×3 (01:34→18:36)
[2018-06-07] MEDS: oxyCODONE/APAP 10/325 1 TAB TABLET PO PRN ×3 (02:41→11:11)
[2018-06-07 03:00] VITALS: BP 144/64
[2018-06-07] MEDS: diphenhydrAMINE HCL 25 MG CAPSULE PO PRN (05:39)
[2018-06-07] MEDS: KETOROLAC 15 MG/ML VIAL. IV PRN (06:18)
[2018-06-07] MEDS: LEVOTHYROXINE 175 MCG TABLET PO SCH (06:49)
[2018-06-07 07:00] VITALS: BP 102/71
[2018-06-07] MEDS: PANTOPRAZOLE 40 MG TABLET.DR. PO SCH (07:38)
[2018-06-07] MEDS: glipiZIDE ER 2.5 MG TAB.ER.24 PO SCH (07:51)
[2018-06-07] MEDS: metFORMIN 500 MG TABLET PO SCH ×2 (07:51→17:31)
[2018-06-07] MEDS: CETIRIZINE HCL 10 MG TABLET. PO SCH (08:55)
[2018-06-07] MEDS: SPIRONOLACTONE 25 MG TABLET PO SCH (08:55)
[2018-06-07] MEDS: MULTIVITAMIN with MINERAL TABLET. PO SCH (08:55)
[2018-06-07] MEDS: ALLOPURINOL 300 MG TABLET. PO SCH (08:55)
[2018-06-07] MEDS: ARIPiprazole 5 MG TABLET PO SCH (08:58)
[2018-06-07] MEDS: ASCORBIC ACID 500 MG TABLET PO SCH (08:58)
[2018-06-07] MEDS: DOCUSATE SODIUM 100 MG CAPSULE. PO SCH (08:59)
[2018-06-07] MEDS: LISINOPRIL 5 MG TABLET. PO SCH (09:00)
[2018-06-07] MEDS: amLODIPine BESYLATE 5 MG TABLET PO SCH (09:00)
[2018-06-07] MEDS: valACYclovir 500 MG TABLET. PO SCH (09:03)
[2018-06-07 11:00] VITALS: BP 110/58
--- NOTE | 2018-06-07 12:24 | PDOC ---
PROGRESS NOTES Subjective Subjective resting in bed pain slightly improved today Toradol helped she reports that she has been walking in [place] and to bathroom Objective Objective Vital Signs Date Time Temp Pulse Resp B/P (MAP) Pulse Ox O2 Delivery O2 Flow Rate FiO2 06/07/18 12:13 92 Room Air 06/07/18 11:00 97.8 78 18 110/58 (75) 97.8 Intake and Output 06/07/18 07:00 Intake Total 1280 ml Balance 1280 ml Intake Oral 1280 ml # Voids 10 Physical Exam General: Alert, Oriented X3, Cooperative Neuro: Normal speech, Other (normal strength in LE) Plan Plan of Care MRI reviewed- no acute changes encouraged increased activity as tolerated SCDs hopefully dc tomorrow Comment Review of Relevant I have reviewed the following items toño (where applicable) has been applied. Labs Laboratory Tests Test 06/05/18 13:30 06/05/18 17:04 06/05/18 20:17 06/06/18 07:41 White Blood Count 10.9 x10^3/uL (4.0-11.0) Red Blood Count 4.54 x10^6/uL (3.50-5.40) Hemoglobin 15.1 g/dL (12.0-15.5) Hematocrit 43.9 % (36.0-47.0) Mean Corpuscular Volume 97 fL (79-100) Mean Corpuscular Hemoglobin 33 pg (25-35) Mean Corpuscular Hemoglobin Concent 35 g/dL (31-37) Red Cell Distribution Width 14.9 % (11.5-14.5) Platelet Count 282 x10^3/uL (140-400) Neutrophils (%) (Auto) 70 % (31-73) Lymphocytes (%) (Auto) 22 % (24-48) Monocytes (%) (Auto) 8 % (0-9) Eosinophils (%) (Auto) 1 % (0-3) Basophils (%) (Auto) 0 % (0-3) Neutrophils # (Auto) 7.6 x10^3uL (1.8-7.7) Lymphocytes # (Auto) 2.4 x10^3/uL (1.0-4.8) Monocytes # (Auto) 0.8 x10^3/uL (0.0-1.1) Eosinophils # (Auto) 0.1 x10^3/uL (0.0-0.7) Basophils # (Auto) 0.0 x10^3/uL (0.0-0.2) Sodium Level 140 mmol/L (136-145) Potassium Level 3.9 mmol/L (3.5-5.1) Chloride Level 101 mmol/L (98-107) Carbon Dioxide Level 28 mmol/L (21-32) Anion Gap 11 (6-14) Blood Urea Nitrogen 13 mg/dL (7-20) Creatinine 0.7 mg/dL (0.6-1.0) Estimated GFR (Cockcroft-Gault) 94.2 Glucose Level 146 mg/dL (70-99) Calcium Level 9.3 mg/dL (8.5-10.1) Glucose (Fingerstick) 122 mg/dL (70-99) 174 mg/dL (70-99) 132 mg/dL (70-99) Test 06/06/18 11:48 06/06/18 16:55 06/06/18 20:32 06/07/18 07:46 Glucose (Fingerstick) 133 mg/dL (70-99) 140 mg/dL (70-99) 140 mg/dL (70-99) 154 mg/dL (70-99) Test 06/07/18 11:40 Glucose (Fingerstick) 150 mg/dL (70-99) Laboratory Tests Test 06/06/18 16:55 06/06/18 20:32 06/07/18 07:46 06/07/18 11:40 Glucose (Fingerstick) 140 mg/dL (70-99) 140 mg/dL (70-99) 154 mg/dL (70-99) 150 mg/dL (70-99) Medications Current Medications Allopurinol (Zyloprim) 300 mg DAILY PO Last administered on 06/07/18at 08:55; Start 06/03/18 at 09:00 Amlodipine Besylate (Norvasc) 5 mg DAILY PO Last administered on 06/06/18at 08: 49; Start 06/03/18 at 09:00 Amlodipine Besylate (Norvasc) 5 mg DAILY PO ; Start 06/03/18 at 09:00; Status UNV Cetirizine HCl (ZyrTEC) 10 mg DAILY PO Last administered on 06/07/18at 08:55; Start 06/03/18 at 09:00 Lorazepam (Ativan) 0.5 mg HS PO ; Start 06/02/18 at 21:00; Stop 06/02/18 at 21 :33; Status DC Oxycodone/ Acetaminophen (Percocet 10/325) 1 tab BID PO ; Start 06/02/18 at 21: 00; Stop 06/02/18 at 21:33; Status DC Non-Formulary Medication (Adalimumab (Humira)) 40 mg WEEKLY SQ ; Start 06/09/18 at 09:00; Stop 06/09/18 at 09:00; Status DC Aripiprazole (Abilify) 15 mg DAILY PO ; Start 06/03/18 at 09:00; Stop at 09:00; Status DC Ascorbic Acid (Vitamin C) 1,000 mg DAILY PO Last administered on 06/07/18at 08: 58; Start 06/03/18 at 09:00 Non-Formulary Medication (Canagliflozin (Invokana)) 300 mg DAILY PO Last administered on 06/05/18at 09:25; Start 06/03/18 at 09:00 Non-Formulary Medication (Clomipramine Hcl ) 100 mg HS PO ; Start 06/02/18 at 21:00; Status UNV Gabapentin (Neurontin) 600 mg TID PO ; Start 06/02/18 at 21:00; Stop 06/02/18 at 21:33; Status DC Glipizide (Glucotrol Er) 5 mg DAILY08 PO Last administered on 06/07/18at 07:51; Start 06/03/18 at 08:00 Pantoprazole Sodium (Protonix) 40 mg DAILYAC PO Last administered on 06/07/18at 07:38; Start 06/03/18 at 07:30 Non-Formulary Medication (Lansoprazole (Prevacid)) 1 cap DAILY PO ; Start 06/03 at 09:00; Status UNV Metformin HCl (Glucophage) 1,000 mg BIDWMEALS PO Last administered on at 07:51; Start 06/03/18 at 08:00 Multivitamins (Thera M Plus) 1 tab DAILY PO Last administered on 06/07/18at 08: 55; Start 06/03/18 at 09:00 Spironolactone (Aldactone) 25 mg DAILY PO Last administered on 06/07/18at 08:55 ; Start 06/03/18 at 09:00 Valacyclovir HCl (Valtrex) 500 mg DAILY PO Last administered on 06/07/18at 09:03 ; Start 06/03/18 at 09:00 Al Hydroxide/Mg Hydroxide (Mylanta Plus Xs) 30 ml PRN Q3HRS PRN PO HEARTBURN / GAS; Start 06/02/18 at 20:15 Calcium Carbonate/ Glycine (Tums) 500 mg PRN Q3HRS PRN PO INDIGESTION; Start 06/02/18 at 20:15 Diphenhydramine HCl (Benadryl) 25 mg PRN Q6HRS PRN PO ITCHING Last administered on 06/07/18at 05:39; Start 06/02/18 at 20:15 Naloxone HCl (Narcan) 0.1 mg PRN Q2MIN PRN IV ADMIN; Start 06/02/18 at 20:15 Sodium Chloride (Normal Saline Flush) 3 ml QSHIFT PRN IV AFTER MEDS AND BLOOD DRAWS; Start 06/02/18 at 20:15 Magnesium Hydroxide (Milk Of Magnesia) 2,400 mg PRN Q12HR PRN PO CONSTIPATION; Start 06/02/18 at 20:15 Fentanyl Citrate (Fentanyl 2ml Vial) 50 mcg PRN Q2HR PRN IV MODERATE PAIN Last administered on 06/04/18at 14:43; Start 06/02/18 at 20:15; Stop 06/05/18 at 09 :44; Status DC Aripiprazole (Abilify) 20 mg DAILY PO Last administered on 06/07/18at 08:58; Start 06/03/18 at 09:00 Gabapentin (Neurontin) 600 mg HS PO Last administered on 06/06/18at 20:42; Start 06/02/18 at 22:30 Oxycodone/ Acetaminophen (Percocet 10/325) 1 tab PRN Q6HRS PRN PO SEVERE PAIN Last administered on 06/05/18at 05:23; Start 06/02/18 at 21:30; Stop 06/05/18 at 10:52; Status DC Levothyroxine Sodium (Synthroid) 175 mcg DAILY06 PO Last administered on at 06:49; Start 06/03/18 at 06:00 Cyclobenzaprine HCl (Flexeril) 10 mg PRN TID PRN PO MUSCLE SPASMS Last administered on 06/07/18at 09:56; Start 06/03/18 at 04:00 Lisinopril (Prinivil) 5 mg DAILY PO Last administered on 06/06/18at 08:48; Start 06/03/18 at 09:00 Methylprednisolone Acetate (DEPO-Medrol 40MG VIAL) 40 mg STK-MED ONCE .ROUTE ; Start 06/03/18 at 12:06; Stop 06/03/18 at 12:07; Status DC Iohexol (Omnipaque 180 Mg/ml) 10 ml STK-MED ONCE .ROUTE ; Start 06/03/18 at 12: 06; Stop 06/03/18 at 12:07; Status DC Lidocaine HCl (Xylocaine-Mpf 1% 2ml Vial) 2 ml STK-MED ONCE .ROUTE ; Start at 12:06; Stop 06/03/18 at 12:07; Status DC Methylprednisolone Acetate (DEPO-Medrol 80MG VIAL) 80 mg STK-MED ONCE .ROUTE ; Start 06/03/18 at 12:06; Stop 06/03/18 at 12:07; Status DC Fentanyl Citrate (Fentanyl 2ml Vial) 100 mcg PRN Q2HR PRN IV SEVERE PAIN Last administered on 06/05/18at 07:36; Start 06/04/18 at 16:45; Stop 06/05/18 at 09 :44; Status DC Docusate Sodium (Colace) 100 mg DAILY PO Last administered on 06/07/18at 08:59; Start 06/05/18 at 09:00 Fentanyl Citrate (Fentanyl 2ml Vial) 50 mcg PRN Q1HR PRN IV PAIN Last administered on 06/07/18at 11:11; Start 06/05/18 at 09:45 Oxycodone/ Acetaminophen (Percocet 10/325) 2 tab PRN Q4HRS PRN PO PAIN Last administered on 06/07/18at 11:11; Start 06/05/18 at 11:00 Ketorolac Tromethamine (Toradol 15mg Vial) 15 mg PRN Q6HRS PRN IV MODERATE PAIN Last administered on 06/07/18at 06:18; Start 06/06/18 at 10:45; Stop at 10:44; Status DC Active Scripts Active Reported Levothyroxine Sodium 175 Mcg Tablet 1 Tab PO DAILY Cyclobenzaprine Hcl 10 Mg Tablet 1 Tab PO TID PRN PRN Lisinopril 5 Mg Tablet 1 Tab PO DAILY Cetirizine Hcl 10 Mg Tablet 1 Tab PO DAILY Norvasc (Amlodipine Besylate) 5 Mg Tablet 1 Tab PO DAILY Percocet 10-325 Mg Tablet (Oxycodone/Acetaminophen) 1 Each Tablet 1 Tab PO PRN Q6HRS PRN Prevacid (Lansoprazole) 30 Mg Capsule.dr 1 Cap PO DAILY Valacyclovir (Valacyclovir Hcl) 500 Mg Tablet 1 Tab PO DAILY Spironolactone 25 Mg Tablet 1 Tab PO DAILY Invokana (Canagliflozin) 300 Mg Tablet 300 Mg PO DAILY Glipizide Er (Glipizide) 5 Mg Tab.er.24 1 Tab PO DAILY Vitamin C (Ascorbic Acid) 1,000 Mg Tablet 1,000 Mg PO DAILY Multi-Day Vitamins (Multivitamin) 1 Each Tablet 1 Tab PO DAILY Abilify (Aripiprazole) 15 Mg Tablet 20 Mg PO DAILY Metformin Hcl 1,000 Mg Tablet 1 Tab PO BID Gabapentin 300 Mg Capsule 600 Mg PO TID Allopurinol 300 Mg Tablet 1 Tab PO DAILY Vitals/I & O Vital Sign - Last 24 Hours 06/06/18 06/06/18 06/06/18 06/06/18 12:44 14:35 15:00 15:42 Temp 98.5 98.5 Pulse 87 Resp 18 B/P (MAP) 135/75 (95) Pulse Ox 94 94 91 94 O2 Delivery Room Air Room Air Room Air Room Air 06/06/18 06/06/18 06/06/18 06/06/18 17:05 18:34 18:34 19:00 Temp 96.5 96.5 Pulse 68 Resp 16 B/P (MAP) 129/72 (91) Pulse Ox 94 94 94 97 O2 Delivery Room Air Room Air Room Air Room Air 06/06/18 06/06/18 06/06/18 06/06/18 19:34 19:35 19:39 20:42 Resp 20 20 20 O2 Delivery Room Air Room Air 06/06/18 06/06/18 06/06/18 06/06/18 21:49 22:54 22:56 23:00 Temp 96.4 96.4 Pulse 71 Resp 20 20 20 18 B/P (MAP) 135/69 (91) Pulse Ox 97 O2 Delivery Room Air Room Air Room Air BiPAP/CPAP 06/07/18 06/07/18 06/07/18 06/07/18 00:28 00:58 01:36 02:41 Resp 20 20 20 Pulse Ox 97 O2 Delivery Room Air Room Air Room Air 06/07/18 06/07/18 06/07/18 06/07/18 02:41 03:00 03:54 05:42 Temp 98.2 98.2 Pulse 61 Resp 16 20 20 B/P (MAP) 144/64 (90) Pulse Ox 97 92 O2 Delivery Room Air BiPAP/CPAP Room Air Room Air 06/07/18 06/07/18 06/07/18 06/07/18 06:50 06:50 07:00 07:52 Temp 97.3 97.3 Pulse 78 Resp 20 20 18 B/P (MAP) 102/71 (81) Pulse Ox 92 92 O2 Delivery Room Air Room Air Room Air 06/07/18 06/07/18 06/07/18 06/07/18 08:00 08:59 09:00 09:00 Pulse 78 78 B/P (MAP) 102/71 102/71 Pulse Ox 92 O2 Delivery Room Air Room Air 06/07/18 06/07/18 06/07/18 06/07/18 09:57 11:00 11:11 11:11 Temp 97.8 97.8 Pulse 78 Resp 18 B/P (MAP) 110/58 (75) Pulse Ox 92 94 92 92 O2 Delivery Room Air Room Air Room Air Room Air 06/07/18 06/07/18 11:46 12:13 Pulse Ox 92 92 O2 Delivery Room Air Room Air Intake and Output 06/06/18 06/06/18 06/07/18 15:00 23:00 07:00 Intake Total 800 ml 240 ml 240 ml Balance 800 ml 240 ml 240 ml KONSTANTIN NIELSEN [employer] Jun 07, 2018 12:24
--- NOTE | 2018-06-07 13:38 | RAD ---
MRI Lumbar Spine without contrast History: Chronic low back pain, bilateral leg radiculopathy, previous fusion Technique: Multiplanar, multi sequential noncontrast MR imaging was performed of the lumbar spine. Contrast: None Comparison: May 03, 2018 Findings: There is some motion degradation. There again appears to be transitional anatomy. Same numbering is utilized as for the previous exam. There is again posterolateral fusion hardware with bilateral pedicle screws at what is considered L5-S1. Lumbar vertebral body stature and AP alignment are unchanged, very minimal posterior subluxation L4 relative L5. There is again severe narrowing of the L5-S1 intervertebral disc space, mild degenerative disc disease L4-5. There is no significant marrow edema. Conus terminates at L1-L2. There is mild lumbar levoscoliosis. L1-L2, L2-3: These levels were not included on the axial images, spinal canal and neural foramina overall adequate. L3-L4: There is again clumping and thickening of the descending nerve roots. There is again mild buckling of the ligamentum flavum and facet degenerative change. Spinal canal and neural foramina are adequate. L4-L5: There is again facet degenerative change and buckling of the ligamentum flavum. There is again disc osteophyte complex and minimal bulge, mild indentation upon the ventral thecal sac, similar mild narrowing of the far left lateral recess. There is again clumping and thickening of the descending nerve roots. Neural foramina are adequate. L5-S1: There again has been posterior decompression. There are again posterior central osteophytes slightly indenting the ventral thecal sac. Spinal canal is adequate. Neural foramina are overall adequate. Impression: 1. Findings are similar compared with the May 03, 2018 exam. There is again posterolateral fusion hardware at what is considered L5-S1, severe narrowing of the intervertebral disc space at this level. There is mild degenerative disc disease and spondylosis L4-5. There is similar mild lateral recess stenosis at what is considered L4-5, no new significant lumbar spinal stenosis. There is again clumping and thickening of the descending nerve roots which may be seen with sequela of arachnoiditis. Electronically signed by: Hernandez Rao MD (06/07/2018 1:35 PM) [id number]
[2018-06-07] MEDS: oxyCODONE IR 5 MG TABLET PO PRN ×3 (14:54→23:16)
[2018-06-07 15:00] VITALS: BP 120/75
[2018-06-07 19:00] VITALS: BP 148/82
[2018-06-07] MEDS: GABAPENTIN 300 MG CAPSULE. PO SCH (21:05)
[2018-06-07 23:00] VITALS: BP 145/83
[2018-06-08] MEDS: fentaNYL PF VIAL 100 MCG/2 ML VIAL IV PRN ×6 (01:46→10:43)
[2018-06-08 03:00] VITALS: BP 133/81
[2018-06-08] MEDS: CYCLOBENZAPRINE 10 MG TABLET. PO PRN ×3 (03:54→20:17)
[2018-06-08] MEDS: oxyCODONE IR 5 MG TABLET PO PRN ×5 (03:57→20:18)
[2018-06-08] MEDS: LEVOTHYROXINE 175 MCG TABLET PO SCH (06:00)
[2018-06-08] MEDS: PANTOPRAZOLE 40 MG TABLET.DR. PO SCH (07:37)
[2018-06-08 07:50] VITALS: BP 139/80
[2018-06-08] MEDS: LISINOPRIL 5 MG TABLET. PO SCH (08:39)
[2018-06-08] MEDS: DOCUSATE SODIUM 100 MG CAPSULE. PO SCH (08:40)
[2018-06-08] MEDS: SPIRONOLACTONE 25 MG TABLET PO SCH (08:40)
[2018-06-08] MEDS: metFORMIN 500 MG TABLET PO SCH ×2 (08:40→16:40)
[2018-06-08] MEDS: CETIRIZINE HCL 10 MG TABLET. PO SCH (08:41)
[2018-06-08] MEDS: valACYclovir 500 MG TABLET. PO SCH (08:41)
[2018-06-08] MEDS: amLODIPine BESYLATE 5 MG TABLET PO SCH (08:42)
[2018-06-08] MEDS: MULTIVITAMIN with MINERAL TABLET. PO SCH (08:42)
[2018-06-08] MEDS: glipiZIDE ER 2.5 MG TAB.ER.24 PO SCH (08:42)
[2018-06-08] MEDS: ALLOPURINOL 300 MG TABLET. PO SCH (08:43)
[2018-06-08] MEDS: ASCORBIC ACID 500 MG TABLET PO SCH (08:43)
[2018-06-08] MEDS: ARIPiprazole 5 MG TABLET PO SCH (08:43)
[2018-06-08 11:00] VITALS: BP 118/77
--- NOTE | 2018-06-08 11:49 | PDOC ---
PROGRESS NOTES Subjective Subjective resting in bed pain still in left leg but slowly improving has been ambulating in keith and room Objective Objective Vital Signs Date Time Temp Pulse Resp B/P (MAP) Pulse Ox O2 Delivery O2 Flow Rate FiO2 06/08/18 10:43 94 Room Air 06/08/18 08:42 80 139/80 06/08/18 07:50 98.4 18 98.4 Intake and Output 06/08/18 07:00 Intake Total 600 ml Balance 600 ml Intake Oral 600 ml # Voids 2 Physical Exam General: Alert, Oriented X3, Cooperative MUSCULOSKELETAL: Other (RODRIGUES) Neuro: Other (Strength 5/5 in BLE) Plan Plan of Care Encouraged increased activity as tolerated SCDs when in bed dc fentanyl will add MS Vickey, morphine listed as allergy but she reports IV morphine caused nausea working towards dc tomorrow Comment Review of Relevant I have reviewed the following items toño (where applicable) has been applied. Labs Laboratory Tests Test 06/06/18 11:48 06/06/18 16:55 06/06/18 20:32 06/07/18 07:46 Glucose (Fingerstick) 133 mg/dL (70-99) 140 mg/dL (70-99) 140 mg/dL (70-99) 154 mg/dL (70-99) Test 06/07/18 11:40 06/07/18 17:08 06/07/18 20:59 06/08/18 07:42 Glucose (Fingerstick) 150 mg/dL (70-99) 139 mg/dL (70-99) 145 mg/dL (70-99) 164 mg/dL (70-99) Test 06/08/18 11:24 Glucose (Fingerstick) 158 mg/dL (70-99) Laboratory Tests Test 06/07/18 17:08 06/07/18 20:59 06/08/18 07:42 06/08/18 11:24 Glucose (Fingerstick) 139 mg/dL (70-99) 145 mg/dL (70-99) 164 mg/dL (70-99) 158 mg/dL (70-99) Medications Current Medications Allopurinol (Zyloprim) 300 mg DAILY PO Last administered on 06/08/18at 08:43; Start 06/03/18 at 09:00 Amlodipine Besylate (Norvasc) 5 mg DAILY PO Last administered on 06/08/18at 08: 42; Start 06/03/18 at 09:00 Amlodipine Besylate (Norvasc) 5 mg DAILY PO ; Start 06/03/18 at 09:00; Status UNV Cetirizine HCl (ZyrTEC) 10 mg DAILY PO Last administered on 06/08/18at 08:41; Start 06/03/18 at 09:00 Lorazepam (Ativan) 0.5 mg HS PO ; Start 06/02/18 at 21:00; Stop 06/02/18 at 21 :33; Status DC Oxycodone/ Acetaminophen (Percocet 10/325) 1 tab BID PO ; Start 06/02/18 at 21: 00; Stop 06/02/18 at 21:33; Status DC Non-Formulary Medication (Adalimumab (Humira)) 40 mg WEEKLY SQ ; Start 06/09/18 at 09:00; Stop 06/09/18 at 09:00; Status DC Aripiprazole (Abilify) 15 mg DAILY PO ; Start 06/03/18 at 09:00; Stop at 09:00; Status DC Ascorbic Acid (Vitamin C) 1,000 mg DAILY PO Last administered on 06/08/18at 08: 43; Start 06/03/18 at 09:00 Non-Formulary Medication (Canagliflozin (Invokana)) 300 mg DAILY PO Last administered on 06/08/18at 08:49; Start 06/03/18 at 09:00 Non-Formulary Medication (Clomipramine Hcl ) 100 mg HS PO ; Start 06/02/18 at 21:00; Status UNV Gabapentin (Neurontin) 600 mg TID PO ; Start 06/02/18 at 21:00; Stop 06/02/18 at 21:33; Status DC Glipizide (Glucotrol Er) 5 mg DAILY08 PO Last administered on 06/08/18at 08:42; Start 06/03/18 at 08:00 Pantoprazole Sodium (Protonix) 40 mg DAILYAC PO Last administered on 06/08/18at 07:37; Start 06/03/18 at 07:30 Non-Formulary Medication (Lansoprazole (Prevacid)) 1 cap DAILY PO ; Start 06/03 at 09:00; Status UNV Metformin HCl (Glucophage) 1,000 mg BIDWMEALS PO Last administered on 08:40; Start 06/03/18 at 08:00 Multivitamins (Thera M Plus) 1 tab DAILY PO Last administered on 06/08/18 08: 42; Start 06/03/18 at 09:00 Spironolactone (Aldactone) 25 mg DAILY PO Last administered on 06/08/18 08:40 ; Start 06/03/18 at 09:00 Valacyclovir HCl (Valtrex) 500 mg DAILY PO Last administered on 06/08/18 08:41 ; Start 06/03/18 at 09:00 Al Hydroxide/Mg Hydroxide (Mylanta Plus Xs) 30 ml PRN Q3HRS PRN PO HEARTBURN / GAS Last administered on 06/08/18 01:50; Start 06/02/18 at 20:15 Calcium Carbonate/ Glycine (Tums) 500 mg PRN Q3HRS PRN PO INDIGESTION; Start 06/02/18 at 20:15 Diphenhydramine HCl (Benadryl) 25 mg PRN Q6HRS PRN PO ITCHING Last administered on 06/07/18 05:39; Start 06/02/18 at 20:15 Naloxone HCl (Narcan) 0.1 mg PRN Q2MIN PRN IV ADMIN; Start 06/02/18 at 20:15 Sodium Chloride (Normal Saline Flush) 3 ml QSHIFT PRN IV AFTER MEDS AND BLOOD DRAWS; Start 06/02/18 at 20:15 Magnesium Hydroxide (Milk Of Magnesia) 2,400 mg PRN Q12HR PRN PO CONSTIPATION; Start 06/02/18 at 20:15 Fentanyl Citrate (Fentanyl 2ml Vial) 50 mcg PRN Q2HR PRN IV MODERATE PAIN Last administered on 06/04/18at 14:43; Start 06/02/18 at 20:15; Stop 06/05/18 at 09 :44; Status DC Aripiprazole (Abilify) 20 mg DAILY PO Last administered on 06/08/18at 08:43; Start 06/03/18 at 09:00 Gabapentin (Neurontin) 600 mg HS PO Last administered on 06/07/18 21:05; Start 06/02/18 at 22:30 Oxycodone/ Acetaminophen (Percocet 10/325) 1 tab PRN Q6HRS PRN PO SEVERE PAIN Last administered on 06/05/18at 05:23; Start 06/02/18 at 21:30; Stop 06/05/18 at 10:52; Status DC Levothyroxine Sodium (Synthroid) 175 mcg DAILY06 PO Last administered on at 06:00; Start 06/03/18 at 06:00 Cyclobenzaprine HCl (Flexeril) 10 mg PRN TID PRN PO MUSCLE SPASMS Last administered on 06/08/18at 03:54; Start 06/03/18 at 04:00 Lisinopril (Prinivil) 5 mg DAILY PO Last administered on 06/08/18at 08:39; Start 06/03/18 at 09:00 Methylprednisolone Acetate (DEPO-Medrol 40MG VIAL) 40 mg STK-MED ONCE .ROUTE ; Start 06/03/18 at 12:06; Stop 06/03/18 at 12:07; Status DC Iohexol (Omnipaque 180 Mg/ml) 10 ml STK-MED ONCE .ROUTE ; Start 06/03/18 at 12: 06; Stop 06/03/18 at 12:07; Status DC Lidocaine HCl (Xylocaine-Mpf 1% 2ml Vial) 2 ml STK-MED ONCE .ROUTE ; Start at 12:06; Stop 06/03/18 at 12:07; Status DC Methylprednisolone Acetate (DEPO-Medrol 80MG VIAL) 80 mg STK-MED ONCE .ROUTE ; Start 06/03/18 at 12:06; Stop 06/03/18 at 12:07; Status DC Fentanyl Citrate (Fentanyl 2ml Vial) 100 mcg PRN Q2HR PRN IV SEVERE PAIN Last administered on 06/05/18at 07:36; Start 06/04/18 at 16:45; Stop 06/05/18 at 09 :44; Status DC Docusate Sodium (Colace) 100 mg DAILY PO Last administered on 06/08/18at 08:40; Start 06/05/18 at 09:00 Fentanyl Citrate (Fentanyl 2ml Vial) 50 mcg PRN Q1HR PRN IV PAIN Last administered on 06/08/18at 10:43; Start 06/05/18 at 09:45 Oxycodone/ Acetaminophen (Percocet 10/325) 2 tab PRN Q4HRS PRN PO PAIN Last administered on 06/07/18at 11:11; Start 06/05/18 at 11:00; Stop 06/07/18 at 12: 28; Status DC Ketorolac Tromethamine (Toradol 15mg Vial) 15 mg PRN Q6HRS PRN IV MODERATE PAIN Last administered on 06/07/18at 06:18; Start 06/06/18 at 10:45; Stop at 10:44; Status DC Oxycodone HCl (Roxicodone) 10 mg PRN Q4HRS PRN PO PAIN Last administered on 06/08/18at 08:41; Start 06/07/18 at 12:45 Active Scripts Active Reported Levothyroxine Sodium 175 Mcg Tablet 1 Tab PO DAILY Cyclobenzaprine Hcl 10 Mg Tablet 1 Tab PO TID PRN PRN Lisinopril 5 Mg Tablet 1 Tab PO DAILY Cetirizine Hcl 10 Mg Tablet 1 Tab PO DAILY Norvasc (Amlodipine Besylate) 5 Mg Tablet 1 Tab PO DAILY Percocet 10-325 Mg Tablet (Oxycodone/Acetaminophen) 1 Each Tablet 1 Tab PO PRN Q6HRS PRN Prevacid (Lansoprazole) 30 Mg Capsule.dr 1 Cap PO DAILY Valacyclovir (Valacyclovir Hcl) 500 Mg Tablet 1 Tab PO DAILY Spironolactone 25 Mg Tablet 1 Tab PO DAILY Invokana (Canagliflozin) 300 Mg Tablet 300 Mg PO DAILY Glipizide Er (Glipizide) 5 Mg Tab.er.24 1 Tab PO DAILY Vitamin C (Ascorbic Acid) 1,000 Mg Tablet 1,000 Mg PO DAILY Multi-Day Vitamins (Multivitamin) 1 Each Tablet 1 Tab PO DAILY Abilify (Aripiprazole) 15 Mg Tablet 20 Mg PO DAILY Metformin Hcl 1,000 Mg Tablet 1 Tab PO BID Gabapentin 300 Mg Capsule 600 Mg PO TID Allopurinol 300 Mg Tablet 1 Tab PO DAILY Vitals/I & O Vital Sign - Last 24 Hours 06/07/18 06/07/18 06/07/18 06/07/18 12:13 12:21 13:35 14:54 Pulse Ox 92 92 92 92 O2 Delivery Room Air Room Air Room Air Room Air 06/07/18 06/07/18 06/07/18 06/07/18 14:54 15:00 16:19 17:32 Temp 97.3 97.3 Pulse 83 Resp 18 B/P (MAP) 120/75 (90) Pulse Ox 92 93 92 92 O2 Delivery Room Air Room Air Room Air Room Air 06/07/18 06/07/18 06/07/18 06/07/18 18:36 19:00 19:10 19:49 Temp 97.8 97.8 Pulse 73 Resp 20 20 B/P (MAP) 148/82 (104) Pulse Ox 92 92 92 O2 Delivery Room Air Room Air Room Air Room Air 06/07/18 06/07/18 06/07/18 06/07/18 19:50 21:07 22:07 23:00 Temp 97.6 97.6 Pulse 69 Resp 20 20 18 B/P (MAP) 145/83 (103) Pulse Ox 92 92 O2 Delivery Room Air Room Air Room Air Room Air 06/07/18 06/07/18 06/08/18 06/08/18 23:16 23:19 01:46 03:00 Temp 98.4 98.4 Pulse 82 Resp 20 20 20 20 B/P (MAP) 133/81 (98) Pulse Ox 94 O2 Delivery Room Air Room Air Room Air Room Air 06/08/18 06/08/18 06/08/18 06/08/18 03:57 03:57 04:27 04:57 Resp 20 20 20 20 O2 Delivery Room Air Room Air 06/08/18 06/08/18 06/08/18 06/08/18 06:30 07:37 07:50 08:15 Temp 98.4 98.4 Pulse 80 Resp 20 18 B/P (MAP) 139/80 (99) Pulse Ox 94 O2 Delivery Room Air Room Air Room Air Room Air 06/08/18 06/08/18 06/08/18 06/08/18 08:39 08:41 08:42 08:49 Pulse 80 80 B/P (MAP) 139/80 139/80 Pulse Ox 94 94 O2 Delivery Room Air Room Air 06/08/18 06/08/18 06/08/18 09:22 09:45 10:43 Pulse Ox 94 94 94 O2 Delivery Room Air Room Air Room Air Intake and Output 06/07/18 06/07/18 06/08/18 15:00 23:00 07:00 Intake Total 240 ml 360 ml Balance 240 ml 360 ml KEISHA MORENO MD Jun 08, 2018 11:49
[2018-06-08] MEDS: MORPHINE ER 15 MG TABLET.ER PO SCH ×2 (12:33→20:17)
[2018-06-08 15:00] VITALS: BP 126/78
[2018-06-08 19:00] VITALS: BP 110/74
[2018-06-08] MEDS: GABAPENTIN 300 MG CAPSULE. PO SCH (20:17)
[2018-06-08 23:00] VITALS: BP 129/73
[2018-06-09] MEDS: oxyCODONE IR 5 MG TABLET PO PRN ×4 (00:42→11:55)
[2018-06-09 03:00] VITALS: BP 129/78
[2018-06-09] MEDS: CYCLOBENZAPRINE 10 MG TABLET. PO PRN ×2 (03:57→11:55)
[2018-06-09] MEDS: LEVOTHYROXINE 175 MCG TABLET PO SCH (05:41)
[2018-06-09] MEDS: PANTOPRAZOLE 40 MG TABLET.DR. PO SCH (05:41)
[2018-06-09 07:00] VITALS: BP 148/83
[2018-06-09] MEDS: metFORMIN 500 MG TABLET PO SCH (07:47)
[2018-06-09] MEDS: glipiZIDE ER 2.5 MG TAB.ER.24 PO SCH (07:48)
[2018-06-09] MEDS ORDERED: NON FORMULARY ITEM (Adalimumab (Humira) 40 MG) SQ SCH (09:00)
[2018-06-09] MEDS: ARIPiprazole 5 MG TABLET PO SCH (09:14)
[2018-06-09] MEDS: MULTIVITAMIN with MINERAL TABLET. PO SCH (09:14)
[2018-06-09] MEDS: ALLOPURINOL 300 MG TABLET. PO SCH (09:14)
[2018-06-09] MEDS: amLODIPine BESYLATE 5 MG TABLET PO SCH (09:14)
[2018-06-09] MEDS: valACYclovir 500 MG TABLET. PO SCH (09:14)
[2018-06-09] MEDS: SPIRONOLACTONE 25 MG TABLET PO SCH (09:14)
[2018-06-09] MEDS: ASCORBIC ACID 500 MG TABLET PO SCH (09:14)
[2018-06-09] MEDS: DOCUSATE SODIUM 100 MG CAPSULE. PO SCH (09:14)
[2018-06-09] MEDS: MORPHINE ER 15 MG TABLET.ER PO SCH (09:14)
[2018-06-09] MEDS: CETIRIZINE HCL 10 MG TABLET. PO SCH (09:14)
[2018-06-09] MEDS: LISINOPRIL 5 MG TABLET. PO SCH (09:15)
[2018-06-09 11:00] VITALS: BP 135/81
--- NOTE | 2018-06-09 11:58 | DISCH ---
DISCHARGE INSTRUCTIONS Condition on Discharge Condition on Discharge: Stable Activity After Discharge Activity Instructions for Disc: Activity as tolerated, Avoid exertion Lifting Instructions after Dis: No heavy lifting, No pulling or pushing Driving Instructions after Dis: Do not drive Weight Bearing Status after Di: As tolerated Diet after Discharge Diet after Discharge: Regular, Diabetic No Calorie Level Additional Diet Restrictions: resume home diet Wound Incision Care Wound/Incision Care: Ice to area for comfort Contacting the [facility] after DC Call your doctor for: Concerns you may have Follow-Up Follow up with: Dr. Grossman [phone] Follow Up With: Dr. Moreno next week [phone] Treatment/Equipment after DC Adaptive Equipment Issued: Four wheeled walker KEISHA MORENO MD Jun 09, 2018 11:58
[2018-06-09] MEDS ORDERED: OXYC5TAB95 PO (12:14)
[2018-06-09] MEDS ORDERED: MORP15TA3 PO (12:14)
--- NOTE | 2018-06-09 12:54 | PDOC ---
PROGRESS NOTES Subjective Subjective pain improved Objective Objective Vital Signs Date Time Temp Pulse Resp B/P (MAP) Pulse Ox O2 Delivery O2 Flow Rate FiO2 06/09/18 11:55 94 Room Air 06/09/18 11:00 98.1 97 16 135/81 (99) 98.1 Intake and Output 06/09/18 07:00 Intake Total 700 ml Balance 700 ml Intake Oral 700 ml # Voids 6 Physical Exam General: Alert, Oriented X3, Cooperative Neuro: Other (strength 5/5 in BLE) Plan Plan of Care dc home f/u next week f/u with Dr. Grossman Comment Review of Relevant I have reviewed the following items toño (where applicable) has been applied. Labs Laboratory Tests Test 06/07/18 17:08 06/07/18 20:59 06/08/18 07:42 06/08/18 11:24 Glucose (Fingerstick) 139 mg/dL (70-99) 145 mg/dL (70-99) 164 mg/dL (70-99) 158 mg/dL (70-99) Test 06/08/18 16:57 06/08/18 21:00 06/09/18 07:53 06/09/18 11:29 Glucose (Fingerstick) 120 mg/dL (70-99) 160 mg/dL (70-99) 144 mg/dL (70-99) 163 mg/dL (70-99) Laboratory Tests Test 06/08/18 16:57 06/08/18 21:00 06/09/18 07:53 06/09/18 11:29 Glucose (Fingerstick) 120 mg/dL (70-99) 160 mg/dL (70-99) 144 mg/dL (70-99) 163 mg/dL (70-99) Medications Current Medications Allopurinol (Zyloprim) 300 mg DAILY PO Last administered on 06/09/18at 09:14; Start 06/03/18 at 09:00 Amlodipine Besylate (Norvasc) 5 mg DAILY PO Last administered on 06/09/18at 09: 14; Start 06/03/18 at 09:00 Amlodipine Besylate (Norvasc) 5 mg DAILY PO ; Start 06/03/18 at 09:00; Status UNV Cetirizine HCl (ZyrTEC) 10 mg DAILY PO Last administered on 06/09/18at 09:14; Start 06/03/18 at 09:00 Lorazepam (Ativan) 0.5 mg HS PO ; Start 06/02/18 at 21:00; Stop 06/02/18 at 21 :33; Status DC Oxycodone/ Acetaminophen (Percocet 10/325) 1 tab BID PO ; Start 06/02/18 at 21: 00; Stop 06/02/18 at 21:33; Status DC Non-Formulary Medication (Adalimumab (Humira)) 40 mg WEEKLY SQ ; Start 06/09/18 at 09:00; Stop 06/09/18 at 09:00; Status DC Aripiprazole (Abilify) 15 mg DAILY PO ; Start 06/03/18 at 09:00; Stop at 09:00; Status DC Ascorbic Acid (Vitamin C) 1,000 mg DAILY PO Last administered on 06/09/18at 09: 14; Start 06/03/18 at 09:00 Non-Formulary Medication (Canagliflozin (Invokana)) 300 mg DAILY PO Last administered on 06/09/18at 09:20; Start 06/03/18 at 09:00 Non-Formulary Medication (Clomipramine Hcl ) 100 mg HS PO ; Start 06/02/18 at 21:00; Status UNV Gabapentin (Neurontin) 600 mg TID PO ; Start 06/02/18 at 21:00; Stop 06/02/18 at 21:33; Status DC Glipizide (Glucotrol Er) 5 mg DAILY08 PO Last administered on 06/09/18at 07:48; Start 06/03/18 at 08:00 Pantoprazole Sodium (Protonix) 40 mg DAILYAC PO Last administered on 06/09/18at 05:41; Start 06/03/18 at 07:30 Non-Formulary Medication (Lansoprazole (Prevacid)) 1 cap DAILY PO ; Start 06/03 at 09:00; Status UNV Metformin HCl (Glucophage) 1,000 mg BIDWMEALS PO Last administered on at 07:47; Start 06/03/18 at 08:00 Multivitamins (Thera M Plus) 1 tab DAILY PO Last administered on 06/09/18at 09: 14; Start 06/03/18 at 09:00 Spironolactone (Aldactone) 25 mg DAILY PO Last administered on 06/09/18 09:14 ; Start 06/03/18 at 09:00 Valacyclovir HCl (Valtrex) 500 mg DAILY PO Last administered on 06/09/18 09:14 ; Start 06/03/18 at 09:00 Al Hydroxide/Mg Hydroxide (Mylanta Plus Xs) 30 ml PRN Q3HRS PRN PO HEARTBURN / GAS Last administered on 06/08/18at 01:50; Start 06/02/18 at 20:15 Calcium Carbonate/ Glycine (Tums) 500 mg PRN Q3HRS PRN PO INDIGESTION; Start 06/02/18 at 20:15 Diphenhydramine HCl (Benadryl) 25 mg PRN Q6HRS PRN PO ITCHING Last administered on 06/07/18at 05:39; Start 06/02/18 at 20:15 Naloxone HCl (Narcan) 0.1 mg PRN Q2MIN PRN IV ADMIN; Start 06/02/18 at 20:15 Sodium Chloride (Normal Saline Flush) 3 ml QSHIFT PRN IV AFTER MEDS AND BLOOD DRAWS; Start 06/02/18 at 20:15 Magnesium Hydroxide (Milk Of Magnesia) 2,400 mg PRN Q12HR PRN PO CONSTIPATION; Start 06/02/18 at 20:15 Fentanyl Citrate (Fentanyl 2ml Vial) 50 mcg PRN Q2HR PRN IV MODERATE PAIN Last administered on 06/04/18at 14:43; Start 06/02/18 at 20:15; Stop 06/05/18 at 09 :44; Status DC Aripiprazole (Abilify) 20 mg DAILY PO Last administered on 06/09/18at 09:14; Start 06/03/18 at 09:00 Gabapentin (Neurontin) 600 mg HS PO Last administered on 06/08/18 20:17; Start 06/02/18 at 22:30 Oxycodone/ Acetaminophen (Percocet 10/325) 1 tab PRN Q6HRS PRN PO SEVERE PAIN Last administered on 06/05/18 05:23; Start 06/02/18 at 21:30; Stop 06/05/18 at 10:52; Status DC Levothyroxine Sodium (Synthroid) 175 mcg DAILY06 PO Last administered on at 05:41; Start 06/03/18 at 06:00 Cyclobenzaprine HCl (Flexeril) 10 mg PRN TID PRN PO MUSCLE SPASMS Last administered on 06/09/18at 11:55; Start 06/03/18 at 04:00 Lisinopril (Prinivil) 5 mg DAILY PO Last administered on 06/09/18at 09:15; Start 06/03/18 at 09:00 Methylprednisolone Acetate (DEPO-Medrol 40MG VIAL) 40 mg STK-MED ONCE .ROUTE ; Start 06/03/18 at 12:06; Stop 06/03/18 at 12:07; Status DC Iohexol (Omnipaque 180 Mg/ml) 10 ml STK-MED ONCE .ROUTE ; Start 06/03/18 at 12: 06; Stop 06/03/18 at 12:07; Status DC Lidocaine HCl (Xylocaine-Mpf 1% 2ml Vial) 2 ml STK-MED ONCE .ROUTE ; Start at 12:06; Stop 06/03/18 at 12:07; Status DC Methylprednisolone Acetate (DEPO-Medrol 80MG VIAL) 80 mg STK-MED ONCE .ROUTE ; Start 06/03/18 at 12:06; Stop 06/03/18 at 12:07; Status DC Fentanyl Citrate (Fentanyl 2ml Vial) 100 mcg PRN Q2HR PRN IV SEVERE PAIN Last administered on 06/05/18at 07:36; Start 06/04/18 at 16:45; Stop 06/05/18 at 09 :44; Status DC Docusate Sodium (Colace) 100 mg DAILY PO Last administered on 06/09/18at 09:14; Start 06/05/18 at 09:00 Fentanyl Citrate (Fentanyl 2ml Vial) 50 mcg PRN Q1HR PRN IV PAIN Last administered on 06/08/18at 10:43; Start 06/05/18 at 09:45; Stop 06/08/18 at 11: 45; Status DC Oxycodone/ Acetaminophen (Percocet 10/325) 2 tab PRN Q4HRS PRN PO PAIN Last administered on 06/07/18at 11:11; Start 06/05/18 at 11:00; Stop 06/07/18 at 12: 28; Status DC Ketorolac Tromethamine (Toradol 15mg Vial) 15 mg PRN Q6HRS PRN IV MODERATE PAIN Last administered on 06/07/18at 06:18; Start 06/06/18 at 10:45; Stop at 10:44; Status DC Oxycodone HCl (Roxicodone) 10 mg PRN Q4HRS PRN PO PAIN Last administered on 06/08/18at 08:41; Start 06/07/18 at 12:45 Morphine Sulfate (Ms Contin) 15 mg BID PO Last administered on 06/09/18at 09:14 ; Start 06/08/18 at 12:30 Oxycodone HCl (Roxicodone) 20 mg PRN Q4HRS PRN PO PAIN Last administered on 06/09/18at 11:55; Start 06/08/18 at 12:30 Active Scripts Active Reported Levothyroxine Sodium 175 Mcg Tablet 1 Tab PO DAILY Cyclobenzaprine Hcl 10 Mg Tablet 1 Tab PO TID PRN PRN Lisinopril 5 Mg Tablet 1 Tab PO DAILY Cetirizine Hcl 10 Mg Tablet 1 Tab PO DAILY Norvasc (Amlodipine Besylate) 5 Mg Tablet 1 Tab PO DAILY Percocet 10-325 Mg Tablet (Oxycodone/Acetaminophen) 1 Each Tablet 1 Tab PO PRN Q6HRS PRN Prevacid (Lansoprazole) 30 Mg Capsule.dr 1 Cap PO DAILY Valacyclovir (Valacyclovir Hcl) 500 Mg Tablet 1 Tab PO DAILY Spironolactone 25 Mg Tablet 1 Tab PO DAILY Invokana (Canagliflozin) 300 Mg Tablet 300 Mg PO DAILY Glipizide Er (Glipizide) 5 Mg Tab.er.24 1 Tab PO DAILY Vitamin C (Ascorbic Acid) 1,000 Mg Tablet 1,000 Mg PO DAILY Multi-Day Vitamins (Multivitamin) 1 Each Tablet 1 Tab PO DAILY Abilify (Aripiprazole) 15 Mg Tablet 20 Mg PO DAILY Metformin Hcl 1,000 Mg Tablet 1 Tab PO BID Gabapentin 300 Mg Capsule 600 Mg PO TID Allopurinol 300 Mg Tablet 1 Tab PO DAILY Vitals/I & O Vital Sign - Last 24 Hours 06/08/18 06/08/18 06/08/18 06/08/18 15:00 16:39 16:40 17:50 Temp 98.1 98.1 Pulse 95 Resp 16 B/P (MAP) 126/78 (94) Pulse Ox 99 99 99 99 O2 Delivery Room Air Room Air Room Air 06/08/18 06/08/18 06/08/18 06/09/18 19:00 20:00 23:00 03:00 Temp 97.8 98.2 98.3 97.8 98.2 98.3 Pulse 85 91 93 Resp 20 18 18 B/P (MAP) 110/74 (86) 129/73 (91) 129/78 (95) Pulse Ox 93 93 94 O2 Delivery Room Air Room Air Room Air Room Air 06/09/18 06/09/18 06/09/18 06/09/18 07:00 07:48 07:50 09:00 Temp 98.4 98.4 Pulse 99 Resp 16 17 B/P (MAP) 148/83 (104) Pulse Ox 94 O2 Delivery Room Air Room Air Room Air Room Air 06/09/18 06/09/18 06/09/18 06/09/18 09:14 09:14 09:15 11:00 Temp 98.1 98.1 Pulse 99 99 97 Resp 16 B/P (MAP) 148/83 148/83 135/81 (99) Pulse Ox 94 94 O2 Delivery Room Air Room Air 06/09/18 11:55 Pulse Ox 94 O2 Delivery Room Air Intake and Output 06/08/18 06/08/18 06/09/18 15:00 23:00 07:00 Intake Total 200 ml 500 ml Balance 200 ml 500 ml KEISHA MORENO MD Jun 09, 2018 12:54
[2018-06-12] MEDS ORDERED: TIZA4CAP3 PO (09:58)
== END 2018-06-09 13:52 | disposition home or self-care (01) | DRG 552 ==
LOC: 4 NORTH 18:37
PROVIDERS: ADMIT Neurological Surgery; ATTEND Neurological Surgery
PROC: 3E0R33Z Introduction of Anti-inflammatory into Spinal Canal, Percutaneous Approach (ICD-10-PCS; principal; 2018-06-03)
DX: M54.5 Low back pain (principal); M79.662 Pain in left lower leg; E11.9 Type 2 diabetes mellitus without complications; E07.9 Disorder of thyroid, unspecified; B02.9 Zoster without complications; Z83.3 Family history of diabetes mellitus; Z82.49 Family history of ischemic heart disease and other diseases of the circulatory system; M54.16 Radiculopathy, lumbar region
CPT/HCPCS: 36415; 62323; 72129; 72132; 72148; 72270; 80048; 81001; 82962; 85025; J1030; J1040; J1885; J3010; Q0163; Q9965; 97116; 97530

== ENCOUNTER → 2018-06-12 | Outpatient (CLI) | payer BC ==
[2018-06-09 11:00] VITALS: BP 135/81
[~2018-06-12] MED LIST changes: +LISI-338 PO; +MORP15TA3 PO; +OXYC5TAB95 PO; +TIZA4CAP3 PO
--- NOTE | 2018-06-13 00:25 | PAIN ---
DATE OF SERVICE: 06/12/2018 PROGRESS NOTE FOR PAIN CLINIC DIAGNOSES: Lumbar radiculopathy with lumbar degenerative disk disease, lumbar spondylosis and post-lumbar laminectomy syndrome. HISTORY OF PRESENT ILLNESS: The patient is a 38-year-old female who returns for followup, last seen in inpatient about a week ago. The patient had lumbar epidural steroid injection without significant improvement in her pain in her low back and left lower extremity. The patient reports it is still significant. She has seen her neurosurgeon, Dr. Romaine Fortune late last week who is recommending potential spinal cord stimulation therapy as she is on narcotic treatment currently and has been for some time with no surgical indications or any revision of surgery or surgical lesions. The patient reports the pain is in the low back, left lower extremity, posterior gluteus, posterior thigh, posterior calf, anterior thigh as well with numbness and burning, aching, tight, shooting, tingling, cramping, stabbing, radiating, becoming more severe, more unbearable with weightbearing, standing, waking her up from sleep several times at night when she lies on her left side, especially. The patient reports the pain is a 10 on a scale of 10 at its worst, 9 on average, 7 at its least and is a 9 today. The patient reports no loss of motor function, but significant fatigability with weightbearing and very uncomfortable with even sitting on the left side. Again, the patient was recently reevaluated inpatient with new scans and neurosurgical evaluation without any surgery indicated. The patient is also having some jerking, twitching feeling in the left leg and spasms as well, which has not been improved with the patient's Flexeril. She is currently taking MS Contin 15 mg q. 12 hours, oxycodone 10-20 mg q. 6 hours without significant side effects except some mild constipation. PHYSICAL EXAMINATION: VITAL SIGNS: Today, blood pressure is 158/99, pulse 103, respirations 16, temperature is 98.1 degrees Fahrenheit. Height is 5 feet 7 inches, weight is 261 pounds. GENERAL: The patient is awake, alert, oriented, appropriate, very pleasant demeanor. HEENT: Head is normocephalic, atraumatic. Extraocular muscles are intact and symmetrical. Oral cavity, mucous membranes moist and pink. Dentition is intact. NECK: Shows anterior throat supple without palpable lymphadenopathy noted. Swallow reflex symmetrical. CHEST: Shows normal on inspection. Breath sounds clear to auscultation bilaterally. HEART: Shows S1, S2 clear. ABDOMEN: Obese, soft, nontender, nondistended. BACK: Shows spine grossly in the midline. Slight exaggeration of the thoracic kyphosis and flattening of the lordotic curvature is noted with well-healed surgical scar noted in the lumbar distribution as well. Lumbar paraspinous muscle shows symmetrical on inspection. On palpation, shows some moderate tenderness diffusely bilaterally without radiation. EXTREMITIES: Lower extremities show deep tendon reflexes 1+ in the patellar and tendo calcaneus tendons. Motor exam is strong with 5/5 dorsiflexion and extension and 4/5 with quadriceps and hamstring flexion, but symmetrical. Peripheral pulses are 1+ posterior tibia. No peripheral edema is noted. PLAN: Options were discussed with the patient. The patient's old chart reviewed as her current medication regimen updated. Current review of systems updated today as well. We discussed this in further detail. We will refill the patient's medications, MS Contin 15 mg q. 12 hours with oxycodone 10-20 mg q. 6 hours. Also, change Flexeril to Zanaflex and have her increase her gabapentin as well. She is only taking it at nighttime. She will take at 600 mg 3 times a day now. Also discussed spinal cord stimulation and we will give her some information to investigate this as well and we will have psychological evaluation performed also and preauthorize the patient for a spinal cord stimulator trial. The patient would like to proceed with this, was given instructions as well as side effects to be aware of with the medication and will follow up after psychological evaluation is complete. FLYNN ALONSO MD DR: ARTHUR/nguyễn JOB#: [id number] / [id number]
== END | disposition home or self-care (01) ==
LOC: PNCL 07:51
PROVIDERS: ATTEND Anesthesiology
DX: M51.16 Intervertebral disc disorders with radiculopathy, lumbar region (principal); M47.896 Other spondylosis, lumbar region; M96.1 Postlaminectomy syndrome, not elsewhere classified
CPT/HCPCS: 99212

== ENCOUNTER 2018-06-18 22:02 | Emergency (ER) | payer BC ==
[~2018-06-18] VITALS: Ht 167.6 cm; Wt 113.4 kg
[2018-06-18 22:50] LABS: BILIRUBIN,URINE NEGATIVE (NEG); CLARITY,URINE CLEAR; COLOR,URINE YELLOW; NITRITE,URINE NEGATIVE (NEG); PROTEIN,URINE NEGATIVE (NEG-TRACE); UROBILINOGEN,URINE 0.2 mg/dL (0.2 mg/dL)
--- NOTE | 2018-06-18 22:52 | PHYS DOC ---
Past Medical History Past Medical History: Hypothyroid, IBS, Other Additional Past Medical Histor: PCOS, OCD, SLEEP APNEA, DJD,CHRONIC PAIN,GOUT Past Surgical History: Tonsillectomy, Other Additional Past Surgical Histo: 3 BACK SX, SPINAL FUSION Alcohol Use: Rarely Drug Use: None Adult General Chief Complaint Chief Complaint: ABDOMINAL PAIN HPI HPI Patient is a 38 year old female who presents with generalized abdominal cramping times last week but worse over the last 3 days. Patient states that she stopped her morphine on June 16 because she wanted to get off of it. Patient still taking her oxycodone 20 mg and last took it at 10:30. Patient states that she's also been having diarrhea, there loose yellow stools that she rates an 8 out of 10 but states that she had a last normal bowel movement was yesterday that was small but it was soft. Patient states that her abdomen feels distended. Patient states nausea but no vomiting. He shouldn't is allergic to morphine IV and OxyContin. Since states she has a history of IBS, chronic back pain, hypertension, diabetes, hypothyroidism, gout, sleep apnea. Review of Systems Review of Systems Constitutional: Denies fever or chills [] Eyes: Denies change in visual acuity, redness, or eye pain [] HENT: Denies nasal congestion or sore throat [] Respiratory: Denies cough or shortness of breath [] Cardiovascular: No additional information not addressed in HPI [] GI: Generalized abdominal pain, nausea. Denies vomiting, bloody stools. Diarrhea [] : Denies dysuria or hematuria [] Musculoskeletal: Denies back pain or joint pain [] Integument: Denies rash or skin lesions [] Neurologic: Denies headache, focal weakness or sensory changes [] All other systems were reviewed and found to be within normal limits, except as documented in this note. Current Medications Current Medications Current Medications Medications (Trade) Dose Ordered Sig/Kerwin Start Time Stop Time Status Last Admin Dose Admin Dicyclomine HCl (Bentyl) 10 mg 1X ONCE 06/18/18 23:00 06/18/18 23:01 DC 06/18/18 23:11 10 MG Info (CONTRAST GIVEN -- Rx MONITORING) 1 each PRN DAILY PRN 06/18/18 23:45 06/20/18 23:44 Iohexol (Omnipaque 300 Mg/ml) 75 ml 1X ONCE 06/19/18 00:00 06/19/18 00:01 DC 06/18/18 23:50 75 ML Ketorolac Tromethamine (Toradol 30mg Vial) 30 mg 1X ONCE 06/19/18 00:15 06/19/18 00:16 06/19/18 00:10 30 MG Ondansetron HCl (Zofran) 4 mg 1X ONCE 06/18/18 23:00 06/18/18 23:01 DC 06/18/18 23:08 4 MG Allergies Allergies Allergies Coded Allergies Type Severity Reaction Last Updated Verified oxycodone Allergy Severe airway reaction 01/27/14 Yes morphine Allergy Mild Nausea and Vomiting 06/06/18 Yes Physical Exam Physical Exam Constitutional: Well developed, well nourished, no acute distress, non-toxic appearance. [] HENT: Normocephalic, atraumatic, bilateral external ears normal, oropharynx moist, no oral exudates, nose normal. [] Eyes: PERRLA, EOMI, conjunctiva normal, no discharge. [] Neck: Normal range of motion, no tenderness, supple, no stridor. [] Cardiovascular:Heart rate regular rhythm, no murmur [] Lungs & Thorax: Bilateral breath sounds clear to auscultation [] Abdomen: Bowel sounds normal, soft, generalized tenderness, no masses, no pulsatile masses. [] Skin: Warm, dry, no erythema, no rash. [] Back: No tenderness, no CVA tenderness. [] Extremities: No tenderness, no cyanosis, no clubbing, ROM intact, no edema. [] Neurologic: Alert and oriented X 3, normal motor function, normal sensory function, no focal deficits noted. [] Psychologic: Affect normal, judgement normal, mood normal. [] Current Patient Data Vital Signs Vital Signs Date Time Temp Pulse Resp B/P (MAP) Pulse Ox O2 Delivery O2 Flow Rate FiO2 06/18/18 22:25 98.2 109 18 126/55 (78) 94 Room Air 98.2 Lab Values Laboratory Tests Test 06/18/18 22:30 06/18/18 22:40 06/18/18 23:00 Urine Collection Type Unknown Urine Color Yellow Urine Clarity Clear Urine pH 6.0 Urine Specific Mcdaniels >=1.030 Urine Protein Negative mg/dL (NEG-TRACE) Urine Glucose (UA) >=1000 mg/dL (NEG) Urine Ketones (Stick) Negative mg/dL (NEG) Urine Blood Moderate (NEG) Urine Nitrite Negative (NEG) Urine Bilirubin Negative (NEG) Urine Urobilinogen Dipstick 0.2 mg/dL (0.2 mg/dL) Urine Leukocyte Esterase Negative (NEG) Urine RBC 11-20 /HPF (0-2) Urine WBC Occ /HPF (0-4) Urine Squamous Epithelial Cells Mod /LPF Urine Bacteria Moderate /HPF (0-FEW) Urine Mucus Slight /LPF POC Urine HCG, Qualitative Hcg negative (Negative) White Blood Count 11.8 x10^3/uL (4.0-11.0) H Red Blood Count 4.66 x10^6/uL (3.50-5.40) Hemoglobin 15.4 g/dL (12.0-15.5) Hematocrit 44.8 % (36.0-47.0) Mean Corpuscular Volume 96 fL (79-100) Mean Corpuscular Hemoglobin 33 pg (25-35) Mean Corpuscular Hemoglobin Concent 34 g/dL (31-37) Red Cell Distribution Width 14.4 % (11.5-14.5) Platelet Count 236 x10^3/uL (140-400) Neutrophils (%) (Auto) 69 % (31-73) Lymphocytes (%) (Auto) 20 % (24-48) L Monocytes (%) (Auto) 10 % (0-9) H Eosinophils (%) (Auto) 1 % (0-3) Basophils (%) (Auto) 0 % (0-3) Neutrophils # (Auto) 8.1 x10^3uL (1.8-7.7) H Lymphocytes # (Auto) 2.3 x10^3/uL (1.0-4.8) Monocytes # (Auto) 1.2 x10^3/uL (0.0-1.1) H Eosinophils # (Auto) 0.1 x10^3/uL (0.0-0.7) Basophils # (Auto) 0.0 x10^3/uL (0.0-0.2) Sodium Level 139 mmol/L (136-145) Potassium Level 3.6 mmol/L (3.5-5.1) Chloride Level 101 mmol/L (98-107) Carbon Dioxide Level 27 mmol/L (21-32) Anion Gap 11 (6-14) Blood Urea Nitrogen 8 mg/dL (7-20) Creatinine 0.8 mg/dL (0.6-1.0) Estimated GFR (Cockcroft-Gault) 80.7 BUN/Creatinine Ratio 10 (6-20) Glucose Level 187 mg/dL (70-99) H Calcium Level 9.3 mg/dL (8.5-10.1) Total Bilirubin 0.4 mg/dL (0.2-1.0) Aspartate Amino Transferase (AST) 27 U/L (15-37) Alanine Aminotransferase (ALT) 58 U/L (14-59) Alkaline Phosphatase 72 U/L (46-116) Total Protein 7.8 g/dL (6.4-8.2) Albumin 3.3 g/dL (3.4-5.0) L Albumin/Globulin Ratio 0.7 (1.0-1.7) L Lipase 151 U/L (73-393) Laboratory Tests 06/18/18 23:00 Laboratory Tests 06/18/18 23:00 EKG EKG [] Radiology/Procedures Radiology/Procedures CT abdomen pelvis Impressions: [facility] [address] [place], [place] [id number] IMAGING REPORT Signed PATIENT: WENDY GREY ACCOUNT: [id number] : 1980 LOCATION: ER AGE: 38 SEX: F EXAM STATUS: REG ER ORD. PHYSICIAN: ARLEEN BENEDICT APRN REASON: Generalized abdominal pain PROCEDURE: CT ABD PELV W/ IV CONTRST ONLY INDICATION: abd pain; Omni 300, 75ml COMPARISON: None. TECHNIQUE: Axial CT images obtained through the abdomen and pelvis with contrast. One or more of the following individualized dose reduction techniques were utilized for this examination: 1. Automated exposure control; 2. Adjustment of the mA and/or kV according to patient size; 3. Use of iterative reconstruction technique. FINDINGS: Abdominal aorta is not aneurysmal. No intrahepatic bile duct dilation. No peripancreatic fluid collection. Spleen unremarkable. No left-sided hydronephrosis. Urinary bladder has minimal urine within at time of exam. No right-sided hydronephrosis. High density focus within the right proximal ureter measuring approximately 1 mm. Colonic diverticulosis. No periappendiceal inflammation. Tiny fat-containing umbilical hernia. Degenerative changes of the spine. Multilevel central canal and neural foraminal stenosis. Sclerosis at femoral heads. Postoperative changes status post posterior spinal fusion at L4-5 with pedicle screws and stabilizing jose. IMPRESSION: 1. No evidence of bowel obstruction. 2. Mild apparent thickening of the wall the sigmoid colon. Could be secondary to a region of contraction but if the patient has symptoms in the region early colitis is possible. 3. Sclerosis at femoral heads. Could be degenerative in nature or secondary to early avascular necrosis. 4. Questionable 1 mm high density focus at right proximal ureter. Could be contrast in the area given that there is no hydronephrosis although a tiny nonobstructive renal stone is possible. Electronically signed by: Ralph Dominguez MD (06/19/2018 12:06 AM) [facility] DICTATED and SIGNED BY: RALPH DOMINGUEZ MD DATE: 06/18/18 7317 Course & Med Decision Making Course & Med Decision Making Patient is a 38 year old female who presents with generalized abdominal cramping times last week but worse over the last 3 days. Patient states that she stopped her morphine on June 16 because she wanted to get off of it. Patient still taking her oxycodone 20 mg and last took it at 18:30. Patient states that she's also been having diarrhea, there loose yellow stools that she rates an 8 out of 10 but states that she had a last normal bowel movement was yesterday that was small but it was soft. Patient states that her abdomen feels distended. Patient states nausea but no vomiting. He shouldn't is allergic to morphine IV and OxyContin. Since states she has a history of IBS, chronic back pain, hypertension, diabetes, hypothyroidism, gout, sleep apnea. Drainage. Skin is pink warm and dry. Lungs are clear to auscultation all lobes. Abdomen is soft but generalized tenderness in all quadrants. Patient is morbidly obese. Patient has no extremity swelling. Patient is given Bentyl, Toradol and Zofran. Blood work is unremarkable. CT abdomen pelvis shows Questionable 1 mm high density focus at right proximal ureter. Could be contrast in the area given that there is no hydronephrosis although a tiny nonobstructive renal stone is possible. Patient will be diagnosed with a small kidney stone and a UTI. I will treat her UTI with Macrobid and tell her to take Ibuprofen along with her prescribed pain medications. She will also be given a strainer. Patient should follow up with her primary care physician or urology. Patient is stable and in no distress. Dragon Disclaimer Dragon Disclaimer This electronic medical record was generated, in whole or in part, using a voice recognition dictation system. Departure Departure Impression: Primary Impression: Kidney stone Additional Impression: Urinary tract infection Disposition: HOME, SELF-CARE Condition: STABLE Referrals: ROLO BARNES (PCP) WAYLON SEXTON MD Patient Instructions: Kidney Stones, Urinary Tract Infection Additional Instructions: Follow up with your primary care provider or Urology as soon as possible. Take Ibuprofen along with your already prescribed pain medications. Scripts Nitrofurantoin Monohyd/M-Cryst (MACROBID 100 MG CAPSULE) 100 Mg Capsule 1 CAP PO BID, #14 CAP Prov: ARLEEN BENEDICT APRN 06/19/18 Problem Qualifiers Additional Impression: Urinary tract infection Urinary tract infection type: site unspecified Hematuria presence: with hematuria Qualified Codes: N39.0 - Urinary tract infection, site not specified ; R31.9 - Hematuria, unspecified ARLEEN BENEDICT [employer] Jun 18, 2018 22:52
[2018-06-18] MEDS ORDERED: ONDANSETRON PF 4 MG/2 ML VIAL. IV ONE (23:00)
[2018-06-18] MEDS ORDERED: DICYCLOMINE 20 MG/2 ML AMPUL. IM ONE (23:00)
[2018-06-18 23:04] LABS: BACTERIA,URINE MODERATE /HPF (0-FEW); SQUAMOUS EPITHELIAL CELL,UR MOD /LPF; WBC,URINE OCC /HPF (0-4)
[2018-06-18 23:23] LABS: BASO % 0 % (0-3); EOS # 0.1 x10^3/uL (0.0-0.7); EOS % 1 % (0-3); HEMATOCRIT 44.8 % (36.0-47.0); HEMOGLOBIN 15.4 g/dL (12.0-15.5); LYMPH # 2.3 x10^3/uL (1.0-4.8); LYMPH % 20 % (24-48); MEAN CORPUSCULAR HEMOGLOBIN 33 pg (25-35); MEAN CORPUSCULAR HGB CONC 34 g/dL (31-37); MEAN CORPUSCULAR VOLUME 96 fL (79-100); MONO # 1.2 x10^3/uL (0.0-1.1); MONO % 10 % (0-9); NEUT # 8.1 x10^3uL (1.8-7.7); NEUT % 69 % (31-73); PLATELET COUNT 236 x10^3/uL (140-400); RED BLOOD COUNT 4.66 x10^6/uL (3.50-5.40); RED CELL DISTRIBUTION WIDTH 14.4 % (11.5-14.5); WHITE BLOOD COUNT 11.8 x10^3/uL (4.0-11.0)
[2018-06-18 23:32] LABS: CALCIUM 9.3 mg/dL (8.5-10.1); CREATININE 0.8 mg/dL (0.6-1.0); GFR 80.7; POTASSIUM 3.6 mmol/L (3.5-5.1)
[2018-06-18 23:38] LABS: ALBUMIN 3.3 g/dL (3.4-5.0); ALBUMIN/GLOBULIN RATIO 0.7 (1.0-1.7); TOTAL BILIRUBIN 0.4 mg/dL (0.2-1.0); TOTAL PROTEIN 7.8 g/dL (6.4-8.2)
[2018-06-18] MEDS ORDERED: CONTRAST GIVEN. MC PRN (23:45)
[2018-06-19] MEDS ORDERED: IOHEXOL 300 MG/ML 100ML VIAL. IV ONE
--- NOTE | 2018-06-19 00:10 | RAD ---
INDICATION: abd pain; Omni 300, 75ml COMPARISON: None. TECHNIQUE: Axial CT images obtained through the abdomen and pelvis with contrast. One or more of the following individualized dose reduction techniques were utilized for this examination: 1. Automated exposure control; 2. Adjustment of the mA and/or kV according to patient size; 3. Use of iterative reconstruction technique. FINDINGS: Abdominal aorta is not aneurysmal. No intrahepatic bile duct dilation. No peripancreatic fluid collection. Spleen unremarkable. No left-sided hydronephrosis. Urinary bladder has minimal urine within at time of exam. No right-sided hydronephrosis. High density focus within the right proximal ureter measuring approximately 1 mm. Colonic diverticulosis. No periappendiceal inflammation. Tiny fat-containing umbilical hernia. Degenerative changes of the spine. Multilevel central canal and neural foraminal stenosis. Sclerosis at femoral heads. Postoperative changes status post posterior spinal fusion at L4-5 with pedicle screws and stabilizing jose. IMPRESSION: 1. No evidence of bowel obstruction. 2. Mild apparent thickening of the wall the sigmoid colon. Could be secondary to a region of contraction but if the patient has symptoms in the region early colitis is possible. 3. Sclerosis at femoral heads. Could be degenerative in nature or secondary to early avascular necrosis. 4. Questionable 1 mm high density focus at right proximal ureter. Could be contrast in the area given that there is no hydronephrosis although a tiny nonobstructive renal stone is possible. Electronically signed by: Everton Yeager MD (06/19/2018 12:06 AM) [facility]
[2018-06-19] MEDS ORDERED: KETOROLAC 30 MG/ML VIAL. IV ONE (00:15)
[2018-06-19] MEDS ORDERED: NITR100C62 PO (00:22)
[2018-06-19 00:50] VITALS: BP 98/60
== END 2018-06-19 00:52 | disposition home or self-care (01) ==
LOC: ER 22:02
DX: N20.0 Calculus of kidney (principal); N39.0 Urinary tract infection, site not specified; R19.7 Diarrhea, unspecified; R31.9 Hematuria, unspecified; E03.9 Hypothyroidism, unspecified; K58.9 Irritable bowel syndrome, unspecified; E28.2 Polycystic ovarian syndrome; F42.9 Obsessive-compulsive disorder, unspecified; G89.29 Other chronic pain; G47.30 Sleep apnea, unspecified; K57.30 Diverticulosis of large intestine without perforation or abscess without bleeding; K42.9 Umbilical hernia without obstruction or gangrene; E66.01 Morbid (severe) obesity due to excess calories; Z68.41 Body mass index [BMI] 40.0-44.9, adult; Z98.890 Other specified postprocedural states; Z88.5 Allergy status to narcotic agent
CPT/HCPCS: 36415; 74177; 80053; 81001; 81025; 83690; 85025; 87086; 96372; 96374; 96375; 99285; J0500; J1885; J2405; Q9967

== ENCOUNTER → 2018-06-21 | Emergency (ER) | payer BC ==
[~2018-06-21] VITALS: Ht 167.6 cm; Wt 113.4 kg
[~2018-06-21] MED LIST changes: +IV NORMAL SALINE 1000ML BAG 1,000 ML IV SCH; +KETOROLAC 30 MG/ML VIAL. IV ONE; +NITR100C62 PO; +fentaNYL PF VIAL 100 MCG/2 ML VIAL IV ONE
[2018-06-21 15:42] LABS: BILIRUBIN,URINE NEGATIVE (NEG); CLARITY,URINE CLEAR; COLOR,URINE YELLOW; NITRITE,URINE NEGATIVE (NEG); PH,URINE 6.5; PROTEIN,URINE NEGATIVE (NEG-TRACE)
[2018-06-21 15:52] LABS: SQUAMOUS EPITHELIAL CELL,UR MOD /LPF
[2018-06-21 15:53] LABS: BACTERIA,URINE MANY /HPF (0-FEW); RBC,URINE 0 /HPF (0-2)
[2018-06-21 16:37] LABS: BASO % 0 % (0-3); EOS # 0.3 x10^3/uL (0.0-0.7); EOS % 3 % (0-3); HEMATOCRIT 44.2 % (36.0-47.0); HEMOGLOBIN 15.3 g/dL (12.0-15.5); LYMPH # 1.2 x10^3/uL (1.0-4.8); LYMPH % 14 % (24-48); MEAN CORPUSCULAR HEMOGLOBIN 33 pg (25-35); MEAN CORPUSCULAR HGB CONC 35 g/dL (31-37); MEAN CORPUSCULAR VOLUME 96 fL (79-100); MONO # 0.7 x10^3/uL (0.0-1.1); MONO % 9 % (0-9); NEUT # 6.2 x10^3uL (1.8-7.7); NEUT % 73 % (31-73); PLATELET COUNT 212 x10^3/uL (140-400); RED BLOOD COUNT 4.59 x10^6/uL (3.50-5.40); RED CELL DISTRIBUTION WIDTH 14.1 % (11.5-14.5); WHITE BLOOD COUNT 8.5 x10^3/uL (4.0-11.0)
[2018-06-21 16:53] LABS: CREATININE 0.7 mg/dL (0.6-1.0); GFR 94.2; POTASSIUM 3.7 mmol/L (3.5-5.1)
[2018-06-21 16:58] LABS: ALBUMIN 3.5 g/dL (3.4-5.0); ALBUMIN/GLOBULIN RATIO 0.8 (1.0-1.7); TOTAL BILIRUBIN 0.3 mg/dL (0.2-1.0)
[2018-06-21 17:00] VITALS: BP 138/85
--- NOTE | 2018-06-21 17:12 | PHYS DOC ---
Past Medical History Past Medical History: Diabetes-Type II, Hypertension, Hypothyroid, IBS, Other Additional Past Medical Histor: chronic back pain, gout, sleep apnea Past Surgical History: Other Additional Past Surgical Histo: multiple back surgeries, Alcohol Use: None Drug Use: None Adult General Chief Complaint Chief Complaint: PAIN ON URINATION [facility] HPI Patient is a 38 year old FEMALE presented to the ER for evaluation of nausea, vomiting, diarrhea and abdominal pain. Patient described the pain as cramping. She has chronic back problem. She has been on high dose of morphine and other narcotic at home. ON 06/16/2018, She decided to take herself off morphine. She still takes oxycodone. She was seen here on 06/18/18 for abdominal pain with nausea and vomiting. CT scan of her abdomen and pelvic did not shown any acute problem. There was a 1 mm area in her ureter that was either contrast or stone but there was no blood in her urine. She was discharged home with diagnose of UTI, on macrobid. She came back here with above symptoms. She is scheduled to see pain management next week. Review of Systems Review of Systems Constitutional: Denies fever or chills [] Eyes: Denies change in visual acuity, redness, or eye pain [] HENT: Denies nasal congestion or sore throat [] Respiratory: Denies cough or shortness of breath [] Cardiovascular: No additional information not addressed in HPI [] GI: POSITIVE FOR abdominal pain, nausea, vomiting , NO bloody stools or diarrhea [] : Denies dysuria or hematuria [] Musculoskeletal: Denies back pain or joint pain [] Integument: Denies rash or skin lesions [] Neurologic: Denies headache, focal weakness or sensory changes [] Endocrine: Denies polyuria or polydipsia [] All other systems were reviewed and found to be within normal limits, except as documented in this note. Current Medications Current Medications Current Medications Medications (Trade) Dose Ordered Sig/Kerwin Start Time Stop Time Status Last Admin Dose Admin Fentanyl Citrate (Fentanyl 2ml Vial) 75 mcg 1X ONCE 06/21/18 17:00 06/21/18 17:01 DC 06/21/18 16:57 75 MCG Ketorolac Tromethamine (Toradol 30mg Vial) 30 mg 1X ONCE 06/21/18 15:30 06/21/18 15:31 DC 06/21/18 15:27 30 MG Sodium Chloride 1,000 ml @ 1,000 mls/hr Q1H 06/21/18 15:04 06/21/18 16:03 DC 06/21/18 15:27 1,000 MLS/HR Allergies Allergies Allergies Coded Allergies Type Severity Reaction Last Updated Verified No Known Drug Allergies 06/21/18 No Physical Exam Physical Exam Constitutional: Well developed, well nourished, APPEARED ANXIOUS. non-toxic appearance. [] HENT: Normocephalic, atraumatic, bilateral external ears normal, oropharynx moist, no oral exudates, nose normal. [] Eyes: PERRLA, EOMI, conjunctiva normal, no discharge. [] Neck: Normal range of motion, no tenderness, supple, no stridor. [] Cardiovascular:Heart rate regular rhythm, no murmur [] Lungs & Thorax: Bilateral breath sounds clear to auscultation [] Abdomen: Bowel sounds normal, soft, there tenderness to palpation in epigastric area, no masses, no pulsatile masses. [] Skin: Warm, dry, no erythema, no rash. [] Back: No tenderness, no CVA tenderness. [] Extremities: No tenderness, no cyanosis, no clubbing, ROM intact, no edema. [] Neurologic: Alert and oriented X 3, normal motor function, normal sensory function, no focal deficits noted. [] Psychologic: appeared very anxious, but no SI OR HI. Current Patient Data Vital Signs Vital Signs Date Time Temp Pulse Resp B/P (MAP) Pulse Ox O2 Delivery O2 Flow Rate FiO2 06/21/18 17:15 18 97 Room Air 06/21/18 17:00 83 138/85 (102) 06/21/18 15:00 97.9 97.9 Lab Values Laboratory Tests Test 06/21/18 15:05 06/21/18 16:30 Urine Collection Type Unknown Urine Color Yellow Urine Clarity Clear Urine pH 6.5 Urine Specific Remer >=1.030 Urine Protein Negative mg/dL (NEG-TRACE) Urine Glucose (UA) >=1000 mg/dL (NEG) Urine Ketones (Stick) 15 mg/dL (NEG) Urine Blood Negative (NEG) Urine Nitrite Negative (NEG) Urine Bilirubin Negative (NEG) Urine Urobilinogen Dipstick 1.0 mg/dL (0.2 mg/dL) Urine Leukocyte Esterase Negative (NEG) Urine RBC 0 /HPF (0-2) Urine WBC 1-4 /HPF (0-4) Urine Squamous Epithelial Cells Mod /LPF Urine Bacteria Many /HPF (0-FEW) Urine Mucus Marked /LPF White Blood Count 8.5 x10^3/uL (4.0-11.0) Red Blood Count 4.59 x10^6/uL (3.50-5.40) Hemoglobin 15.3 g/dL (12.0-15.5) Hematocrit 44.2 % (36.0-47.0) Mean Corpuscular Volume 96 fL (79-100) Mean Corpuscular Hemoglobin 33 pg (25-35) Mean Corpuscular Hemoglobin Concent 35 g/dL (31-37) Red Cell Distribution Width 14.1 % (11.5-14.5) Platelet Count 212 x10^3/uL (140-400) Neutrophils (%) (Auto) 73 % (31-73) Lymphocytes (%) (Auto) 14 % (24-48) L Monocytes (%) (Auto) 9 % (0-9) Eosinophils (%) (Auto) 3 % (0-3) Basophils (%) (Auto) 0 % (0-3) Neutrophils # (Auto) 6.2 x10^3uL (1.8-7.7) Lymphocytes # (Auto) 1.2 x10^3/uL (1.0-4.8) Monocytes # (Auto) 0.7 x10^3/uL (0.0-1.1) Eosinophils # (Auto) 0.3 x10^3/uL (0.0-0.7) Basophils # (Auto) 0.0 x10^3/uL (0.0-0.2) Sodium Level 141 mmol/L (136-145) Potassium Level 3.7 mmol/L (3.5-5.1) Chloride Level 104 mmol/L (98-107) Carbon Dioxide Level 25 mmol/L (21-32) Anion Gap 12 (6-14) Blood Urea Nitrogen 5 mg/dL (7-20) L Creatinine 0.7 mg/dL (0.6-1.0) Estimated GFR (Cockcroft-Gault) 94.2 BUN/Creatinine Ratio 7 (6-20) Glucose Level 197 mg/dL (70-99) H Calcium Level 9.0 mg/dL (8.5-10.1) Total Bilirubin 0.3 mg/dL (0.2-1.0) Aspartate Amino Transferase (AST) 37 U/L (15-37) Alanine Aminotransferase (ALT) 59 U/L (14-59) Alkaline Phosphatase 80 U/L (46-116) Total Protein 8.0 g/dL (6.4-8.2) Albumin 3.5 g/dL (3.4-5.0) Albumin/Globulin Ratio 0.8 (1.0-1.7) L Lipase 236 U/L (73-393) Laboratory Tests 06/21/18 16:30 Laboratory Tests 06/21/18 16:30 EKG EKG [] Radiology/Procedures Radiology/Procedures [] Course & Med Decision Making Course & Med Decision Making Pertinent Labs and Imaging studies reviewed. (See chart for details) Patient has narcotic withdrawal symptoms. Will discharged home, need to follow up with pain management. She has her morphine and oxycodone at home. Dragon Disclaimer Dragon Disclaimer This electronic medical record was generated, in whole or in part, using a voice recognition dictation system. Departure Departure Impression: Primary Impression: Abdominal pain Additional Impression: Withdrawal symptoms, drug or narcotic Disposition: 01 HOME, SELF-CARE Condition: IMPROVED Referrals: ROLO BARNES (PCP) Patient Instructions: Abdominal Pain, Narcotic Withdrawal Problem Qualifiers CADY CHRISTOPHER DO Jun 21, 2018 17:12
== END ==
LOC: ER 14:52
DX: R10.13 Epigastric pain (principal); F19.939 Other psychoactive substance use, unspecified with withdrawal, unspecified; R11.2 Nausea with vomiting, unspecified; R19.7 Diarrhea, unspecified; G89.29 Other chronic pain; E11.9 Type 2 diabetes mellitus without complications; I10 Essential (primary) hypertension; E03.9 Hypothyroidism, unspecified
CPT/HCPCS: 36415; 80053; 81001; 83690; 85025; 87086; 96361; 96374; 96375; 99285; J1885; J3010; J7030

== ENCOUNTER → 2018-07-31 | Outpatient (CLI) | payer BC ==
[2018-06-21 17:00] VITALS: BP 138/85
[~2018-07-31] MED LIST changes: -GABA-586 PO; +GABA300C18 PO; -IV NORMAL SALINE 1000ML BAG 1,000 ML IV SCH; -KETOROLAC 30 MG/ML VIAL. IV ONE; +LIDOCAINE 1% PF 2 ML VIAL. ONE; -OXYC-327 PO; -OXYC-328 PO; +OXYC1TAB19 PO; +OXYC1TAB22 PO; +OXYC5TAB4 PO; -OXYC5TAB95 PO; -fentaNYL PF VIAL 100 MCG/2 ML VIAL IV ONE
--- NOTE | 2018-07-31 22:43 | PAIN ---
DATE OF SERVICE: 07/31/2018 DIAGNOSES: Lumbar radiculopathy with lumbar degenerative disk disease, lumbar spondylosis and post-lumbar laminectomy syndrome. HISTORY OF PRESENT ILLNESS: The patient is a 38-year-old female who returns for followup status post previous evaluation and clearance for a spinal cord stimulator trial. The patient had been evaluated with psychology, put in a good category for implantable devices, and would like to proceed with this. The patient has had epidural steroid injections as recently as May of this year with only about 20-50% improvement and short lived. The patient reports still significant pain in the low back, bilateral lower extremities, mostly on the left side greater than the right and anterior lateral thigh. The patient reports no new motor or sensory deficits, no new bowel or bladder incontinence or other complaints, but still significant pain described as aching, sharp, shooting, tingling, burning, becoming more severe and uncomfortable and constant. The patient reports no other changes. PHYSICAL EXAMINATION: VITAL SIGNS: Today, the patient's blood pressure is 149/102, pulse 87, respirations 16, temperature 97.8 degrees Fahrenheit, weight is 253 pounds. GENERAL: The patient is awake, alert, oriented, appropriate, very pleasant demeanor. HEENT: Exam shows normocephalic, atraumatic. Extraocular movements intact and symmetrical. Oral cavity: Mucous membranes moist and pink. Dentition is intact. NECK: Shows anterior throat supple without palpable lymphadenopathy noted. Swallow reflex is symmetrical. CHEST: Shows normal on inspection. Breath sounds are clear to auscultation bilaterally. HEART: Shows S1, S2 clear. No murmurs auscultated. ABDOMEN: Soft, nontender, nondistended. No palpable organomegaly is noted. No rebound or guarding demonstrated. BACK: Shows spine grossly in the midline. Slight exaggeration of thoracic kyphosis and flattening of lumbar lordotic curvature. Well-healed surgical scar noted in the lumbar midline. Lumbar paraspinous muscle shows symmetrical on inspection. On palpation shows some moderate tenderness throughout the upper, middle, lower distribution of paraspinous muscles diffusely bilaterally without significant radiation. No tenderness over the sacrum or the spinous processes or sacroiliac joints. EXTREMITIES: The patient's lower extremities show deep tendon reflexes 1+ in the patellar and tendo calcaneus tendons are equal. Motor exam is strong with 5/5 dorsiflexion, extension, quadriceps and hamstring flexion and symmetrical. Peripheral pulses are 1+ posterior tibia. No peripheral edema is noted bilaterally. Options were discussed with the patient. The patient's old chart was reviewed as is her current medication regimen updated. Current review of systems is updated today as well. We will proceed with spinal cord stimulator temporary insertion today with fluoroscopic guidance. Risks were again discussed including, but not limited to bleeding, infection, possibility of epidural hematoma, subsequent neurologic compromise, dural puncture, headaches, spinal cord and/or nerve damage, side effects of steroid medication and poor results regarding pain control. The patient understands and wished to proceed. The patient will return to the clinic in approximately 1 week for removal of spinal cord stimulator leads. These were obtained with our merchandising representative Camden Yeager from [employer] with good coverage and the patient was counseled as to activity level as well as wound care maintenance for the stimulator in the meantime and will call with any questions or concerns. DIAGNOSES: Post- lumbar laminectomy syndrome with lumbar spondylosis, degenerative disk disease and lumbar radiculopathy. PROCEDURE: Spinal cord stimulator placement temporary leads x 2. Under sterile prep and drape using local anesthetic with fluoroscopic guidance, stimulator leads were placed using a 14-gauge Hustead needle after local anesthetic at the L2-L3 interspace. Both right and left paramedian wires were advanced without difficulty after preservative-free normal saline and loss of resistance with each insertion. Wires advanced under direct fluoroscopic guidance both AP and lateral to assure posterior placement in the epidural space as well as midline placement of the stimulator leads, the first superior lead at the superior endplate of T8 and the second one, superior endplate of T9 in the midline. Again, this was verified with fluoroscopic guidance to be posterior in the epidural space as well as in the midline on AP view. Ophir were removed. Sterile stylets were removed and the leads were then sutured in place using anchoring devices applied with the stimulator kit. Sterile bandages were applied. The patient was taken to recovery room in good and stable condition. Stimulation and programming was carried out with Mr. Camden Yeager once again from [employer] with good stimulation coverage and was counseled as to return in approximately 1 week again with wound care counseling and contact information for both our office and [employer] merchandising representative if questions arise. CONDITION AT DISCHARGE: Stable. FLYNN ALONSO MD DR: Mohinder JOB#: [id number] / [id number]
== END | disposition home or self-care (01) ==
LOC: PNCL 13:02
PROVIDERS: ATTEND Anesthesiology
DX: M51.16 Intervertebral disc disorders with radiculopathy, lumbar region (principal); M47.816 Spondylosis without myelopathy or radiculopathy, lumbar region; M96.1 Postlaminectomy syndrome, not elsewhere classified; M79.661 Pain in right lower leg; M79.662 Pain in left lower leg; Z98.890 Other specified postprocedural states
CPT/HCPCS: 63650; C1897

== ENCOUNTER → 2018-08-07 | Outpatient (CLI) | payer BC ==
[2018-06-21 17:00] VITALS: BP 138/85
[~2018-08-07] MED LIST changes: -LIDOCAINE 1% PF 2 ML VIAL. ONE
--- NOTE | 2018-08-07 14:09 | PAIN ---
DATE OF SERVICE: 08/07/2018 DIAGNOSES: Lumbar radiculopathy with lumbar degenerative disk disease, lumbar spondylosis and post-lumbar laminectomy syndrome. HISTORY OF PRESENT ILLNESS: The patient is a 38-year-old female who returns for followup status post spinal cord stimulator temporary trial for the past one week. The patient returns today reporting at least a 50% improvement and over the past 2 days even closer to 70% improvement with her pain. She has been increasing her activity with greater ease and comfort, doing activities around the house, still being careful with bending and flexing of her back with the temporary leads in place, but has much better approach. Yesterday, she was up and around the house doing dishes, which she had not done in months because of her back pain, standing for prolonged periods, walking greater distances throughout the day yesterday and stayed fairly active all day without any significant pain reported. The patient reports it still in the low back and the bilateral lower extremities, worse on the left, aching and tight, tingling and burning sensation, but has been down to a level of 4 on a scale of 10 over the past 1 week. The patient reports no new motor or sensory deficits, no new bowel or bladder incontinence or other complaints. No fevers. No irritation or discharge at the site of the stimulator wire insertions. PHYSICAL EXAMINATION: VITAL SIGNS: Today, the patient's blood pressure 136/87, pulse 96, respirations 18, temperature 97.6 degrees Fahrenheit, height is 5 feet 6 inches, weight is 247 pounds. GENERAL: The patient is awake, alert, oriented, appropriate, very pleasant demeanor. HEENT: Head normocephalic, atraumatic. Extraocular movements are intact and symmetrical. Oral cavity: Mucous membranes moist and pink. Dentition is intact. NECK: Shows anterior throat supple without palpable lymphadenopathy noted. Swallow reflex is symmetrical. CHEST: Shows normal with inspection. Breath sounds clear bilaterally. HEART: S1 and S2 clear. No murmurs auscultated. ABDOMEN: Soft, nontender, nondistended, obese, but without rebound or guarding. BACK: Shows spine grossly in the midline. The patient's bandages were taken down in the lumbar distribution, showing a very clean insertion sites and intact spinal cord stimulator temporary lead wires. Under sterile technique, the sutures were cut and wires removed with tips intact x 2. Sites clean and dry, no erythema, no tenderness, no discharge. This was cleaned from the tape adhesive standpoint and sterilely bandaged. The patient's lower extremities show deep tendon reflexes 1+ in the patellar and tendo calcaneus tendons are equal. Motor exam is strong with 5/5 dorsiflexion, extension and equal. Options were discussed with the patient. The patient's old chart was reviewed as her current medication regimen updated. Current review of systems updated today as well. We will move forward as the patient would like to proceed with the permanent stimulator. We move forward with arranging this. The patient was given instructions as well as activities to maintain active and stretching in the meantime, and we will make arrangements for permanent stimulator placement. FLYNN ALONSO MD DR: ARTHUR/nguyễn JOB#: [id number] / [id number]
== END | disposition home or self-care (01) ==
LOC: PNCL 11:32
PROVIDERS: ATTEND Anesthesiology
DX: M51.16 Intervertebral disc disorders with radiculopathy, lumbar region (principal); M47.896 Other spondylosis, lumbar region; M96.1 Postlaminectomy syndrome, not elsewhere classified
CPT/HCPCS: G0463

== ENCOUNTER → 2018-09-17 | Outpatient (CLI) | payer BC ==
[2018-06-21 17:00] VITALS: BP 138/85
[~2018-09-17] MED LIST changes: +AMLO5TAB10 PO; -AMLO5TAB7 PO
--- NOTE | 2018-09-17 08:55 | PAIN ---
DATE OF SERVICE: 09/17/2018 DIAGNOSES: Lumbar radiculopathy with lumbar degenerative disk disease, lumbar spondylosis and post lumbar laminectomy syndrome. HISTORY OF PRESENT ILLNESS: The patient is a 38-year-old female who returns for followup status post spinal cord stimulator, temporary lead placement and removal, with pending permanent placement. The patient's insurance has held this up for a few weeks pending approval and preauthorization. The patient reports she is still planning on getting a permanent system done, and this will be in first part of October. The patient reports still pain across the low back and bilateral lower extremities, worse on the left than the right, rated as 9 on a scale of 10 at its worse, 8 on average and 7 at its least. The patient reports it is tingling, burning, aching, shooting, becoming more constant where she is required to sit, stand, change position, she will be on her feet or sitting for a prolonged period for greater than 10-15 minutes without changing positions. It is waking her from sleep at night frequently as well as it had been. The patient has been doing fairly well with oxycodone, however, and was requesting a refill of that today, which we will take care of as well. The patient reports no new motor or sensory deficits. No new changes, but still significant pain, awaiting a spinal cord stimulator permanent placement. PHYSICAL EXAMINATION: VITAL SIGNS: The patient's blood pressure 125/81, pulse 88, respirations 16, temperature 97. 9 degrees, height is 66 inches, weight 237 pounds. GENERAL: The patient awake, alert, oriented, appropriate, very pleasant demeanor. HEENT: Head shows normocephalic, atraumatic. Extraocular movements are intact and symmetrical. Oral cavity, mucous membranes are moist and pink. Dentition is intact. NECK: Shows anterior throat supple without palpable lymphadenopathy noted. Swallow reflex is symmetrical. CHEST: Shows normal on inspection. Breath sounds are clear to auscultation bilaterally. HEART: S1, S2 clear. No murmurs auscultated. ABDOMEN: Soft, nontender, nondistended. No palpable organomegaly. No rebound or guarding demonstrated. BACK: Shows spine grossly in the midline. Normal-appearing thoracic kyphosis and lumbar lordotic curvature. Lumbar paraspinal muscle shows symmetrical on inspection, on palpation shows some moderate tenderness diffusely throughout the upper, middle and lower distribution of the paraspinous muscles bilaterally with well-healed surgical scar noted in the midline. The patient shows good rotational motion of the lumbar spine, with some minor tenderness with extension, but not with forward flexion, right and left lateral rotation. Lower extremity showed deep tendon reflexes at 1+ in patellar and tendo-calcaneus tendon and equal. Motor exam is strong with 5/5 dorsiflexion, extension, quadriceps and hamstring flexion symmetrical. Peripheral pulses are 1+ posterior tibial. No peripheral edema is noted bilaterally. Options were discussed with the patient. The patient's old chart was reviewed. Her current medication regimen updated. Current review of systems is updated today as well. We will refill the patient's oxycodone at 10 mg with instructions and side effects discussed. The patient had appropriate K-TRACS report as well as appropriate urinalysis to date. We will refill this as a 1 month prescription. Again, the patient is awaiting spinal cord stimulator permanent placement in the first part of October and follow up once this is completed. FLYNN ALONSO MD DR: ARTHUR/nguyễn JOB#: [id number] / [id number]
== END | disposition home or self-care (01) ==
LOC: PNCL 07:38
PROVIDERS: ATTEND Anesthesiology
DX: M51.16 Intervertebral disc disorders with radiculopathy, lumbar region (principal); M47.896 Other spondylosis, lumbar region; M96.1 Postlaminectomy syndrome, not elsewhere classified
CPT/HCPCS: G0463

== ENCOUNTER 2019-04-10 15:38 | Emergency (ER) | payer BC ==
[~2019-04-10] VITALS: Ht 167.6 cm; Wt 113.4 kg
[~2019-04-10 15:38] MED LIST changes: +MORP-15 PO; -MORP15TA3 PO; -PANT40TA3 PO; +PANT40TA77 PO
[2019-04-10 16:09] VITALS: BP 157/89
[2019-04-10] MEDS ORDERED: ORPHENADRINE CITRATE 60 MG/2 ML VIAL. IM ONE (16:45)
[2019-04-10] MEDS ORDERED: oxyCODONE/APAP 5/325 1 TAB TABLET PO ONE (16:45)
--- NOTE | 2019-04-10 16:48 | PHYS DOC ---
Past Medical History Past Medical History: Diabetes-Type II, Hypertension, Hypothyroid, IBS, Other Additional Past Medical Histor: chronic back pain, gout, sleep apnea Past Surgical History: Other Additional Past Surgical Histo: multiple back surgeries, Alcohol Use: None Drug Use: None Adult General Chief Complaint Chief Complaint: PAIN CONTROL HPI HPI Patient is a 39 year old Female who presents with went bowling on Sunday and began having low mid back pain that goes all the way across the back and sharp and shooting. There is nothing that makes it better. Patient states she had some old Percocets from a year ago that she took one this morning at 6:00. Patient s tates she's been trying to call the pain clinic and has a appointment for next but was trying to get in to be seen sooner and they have not returned her call. Patient had a nerve stimulator placed in her back for this exact pain in this exact location back in November 2018 and has not had to take pain medication since then. Patient is able to ambulate with a steady gait but is very painful. The pain does not shoot down the back of her legs. Patient is rating her pain an 10/10. Review of Systems Review of Systems Constitutional: Denies fever or chills [] GI: Denies abdominal pain, nausea, vomiting, bloody stools or diarrhea [] : Denies dysuria or hematuria [] Musculoskeletal: lumbar back pain or joint pain [] Integument: Denies rash or skin lesions [] Neurologic: Denies headache, focal weakness or sensory changes [] All other systems were reviewed and found to be within normal limits, except as documented in this note. Current Medications Current Medications Current Medications Medications (Trade) Dose Ordered Sig/Kerwin Start Time Stop Time Status Last Admin Dose Admin Orphenadrine Citrate (Norflex) 60 mg 1X ONCE 04/10/19 16:45 04/10/19 16:46 DC 04/10/19 16:51 60 MG Oxycodone/ Acetaminophen (Percocet 5/325) 1 tab 1X ONCE 04/10/19 16:45 04/10/19 16:46 DC 04/10/19 16:51 1 TAB Allergies Allergies Allergies Coded Allergies Type Severity Reaction Last Updated Verified No Known Drug Allergies 06/21/18 No Physical Exam Physical Exam Constitutional: Well developed, well nourished, no acute distress, non-toxic appearance. [] HENT: Normocephalic, atraumatic, bilateral external ears normal, oropharynx moist, no oral exudates, nose normal. [] Eyes: PERRLA, EOMI, conjunctiva normal, no discharge. [] Neck: Normal range of motion, no tenderness, supple, no stridor. [] Cardiovascular:Heart rate regular rhythm, no murmur [] Lungs & Thorax: Bilateral breath sounds clear to auscultation [] Abdomen: Bowel sounds normal, soft, no tenderness, no masses, no pulsatile masses. [] Skin: Warm, dry, no erythema, no rash. [] Back: No tenderness, no CVA tenderness. [] Extremities: No tenderness, no cyanosis, no clubbing, ROM intact, no edema. [] Neurologic: Alert and oriented X 3, normal motor function, normal sensory fun ction, no focal deficits noted. [] Psychologic: Affect normal, judgement normal, mood normal. [] Normal Physical Exam Current Patient Data Vital Signs Vital Signs Date Time Temp Pulse Resp B/P (MAP) Pulse Ox O2 Delivery O2 Flow Rate FiO2 04/10/19 16:09 98.1 83 16 157/89 (111 96 Room Air 98.1 EKG EKG [] Radiology/Procedures Radiology/Procedures [] Impressions: [facility] [address] [place], [place] [id number] IMAGING REPORT Signed PATIENT: WENDY GREY ACCOUNT: [id number] : 1980 LOCATION: ER AGE: 39 SEX: F EXAM STATUS: REG ER ORD. PHYSICIAN: ARLEEN BENEDICT APRN REASON: PAIN PROCEDURE: CT LUMBAR SPINE WO CONTRAST Exam: CT lumbar spine without contrast INDICATION: Pain TECHNIQUE: Sequential axial images through the lumbar spine obtained MRI 06/07/2018 IV contrast. Sagittal and coronal reformatted images were reconstructed from the axial data and reviewed. Comparisons: Lumbar spine MRI 06/07/2018 FINDINGS: Transitional anatomy at the lumbosacral junction. For sake of consistency prior reported lumbar labels will be used in this report. Posterior lumbar fusion hardware at L5-S1 is again noted. Vertebral body heights and alignment are well-maintained. Fracture to the lumbar spine is not identified. L4-L5: There is a broad-based disc bulge, ligamentum flavum thickening causing mild spinal canal stenosis. No significant neural foraminal stenosis. L5-S1: Severe degenerative disc space loss broad-based disc bulge. Laminectomy changes are noted at this level. No significant neural foraminal stenosis. Visualized paraspinal soft tissues are unremarkable. IMPRESSION: Posterior lumbar fusion hardware with laminectomy changes at L5-S1. Otherwise overall similar exam when compared to the prior MRI in 2018. Exposure: One or more of the following in the visualized dose reduction techniques were utilized for this examination: 1. Automated exposure control 2. Adjustment of the MA and/or KV according to patient size 3. Use of iterative of reconstructive technique Electronically signed by: Tal Jurado MD (04/10/2019 5:31 PM) [facility] DICTATED and SIGNED BY: TAL JURADO MD DATE: 04/10/19 173 Course & Med Decision Making Course & Med Decision Making Patient is a 39 year old Female who presents with went bowling on Sunday and began having low mid back pain that goes all the way across the back and sharp and shooting. There is nothing that makes it better. Patient states she had some old Percocets from a year ago that she took one this morning at 6:00. Patient states she's been trying to call the pain clinic and has a appointment for next but was trying to get in to be seen sooner and they have not returned her call. Patient had a nerve stimulator placed in her back for this exact pain in this exact location back in November 2018 and has not had to take pain medication since then. Patient is able to ambulate with a steady gait but is very painful. The pain does not shoot down the back of her legs. Patient is rating her pain an 10/10. Denies any new numbness or tingling. No extremity edema. Pedal pulses are strong and present. Alert and oriented. Skin pink warm and dry. Speaks in full clear sentences. Patient does not have tenderness with palpation to her spine. The pain is more paraspinal but right next to the lumbar spine. Patient states it hurts whether she sitting or standing. No deformities seen or felt to the spine. There is no bruising. Patient denies shortness of air, chest pain, numbness or tingling, weakness, shortness of air, loss of bowel or bladder. No extremity weakness. She is given orphenadrine and [place]. CT of lumbar shows Posterior lumbar fusion hardware with laminectomy changes at L5-S1. Otherwise overall similar exam when compared to the prior MRI in 2018. Patient is discharged home and follow up pain clinic. I have prescribed her some pain medication and muscle relaxer. Dragon Disclaimer Dragon Disclaimer This electronic medical record was generated, in whole or in part, using a voice recognition dictation system. Departure Departure Impression: Primary Impression: Back strain Disposition: HOME, SELF-CARE Condition: STABLE Referrals: ROLO BARNES (PCP) Patient Instructions: Back Pain, Adult, Low Back Strain with Rehab-[facility] Additional Instructions: Follow up with pain clinic as planned. Medication as prescribed. Try heating pad or ice. Scripts Orphenadrine Citrate (ORPHENADRINE CITRATE) 100 Mg Tablet.er 1 TAB PO BID, #20 TAB 1 Refill Prov: ARLEEN BENEDITC APRN 04/10/19 Oxycodone/Apap 5-325 (PERCOCET 5-325 MG TABLET ) 1 Each Tablet 1 TAB PO PRN Q6HRS PRN for PAIN, #10 TAB 0 Refills Prov: ARLEEN BENEDICT APRN 04/10/19 Problem Qualifiers Primary Impression: Back strain Encounter type: initial encounter Qualified Codes: S39.012A - Strain of muscle, fascia and tendon of lower back, initial encounter ARLEEN BENEDICT APRN Apr 10, 2019 16:48
--- NOTE | 2019-04-10 17:34 | RAD ---
Exam: CT lumbar spine without contrast INDICATION: Pain TECHNIQUE: Sequential axial images through the lumbar spine obtained MRI 06/07/2018 IV contrast. Sagittal and coronal reformatted images were reconstructed from the axial data and reviewed. Comparisons: Lumbar spine MRI 06/07/2018 FINDINGS: Transitional anatomy at the lumbosacral junction. For sake of consistency prior reported lumbar labels will be used in this report. Posterior lumbar fusion hardware at L5-S1 is again noted. Vertebral body heights and alignment are well-maintained. Fracture to the lumbar spine is not identified. L4-L5: There is a broad-based disc bulge, ligamentum flavum thickening causing mild spinal canal stenosis. No significant neural foraminal stenosis. L5-S1: Severe degenerative disc space loss broad-based disc bulge. Laminectomy changes are noted at this level. No significant neural foraminal stenosis. Visualized paraspinal soft tissues are unremarkable. IMPRESSION: Posterior lumbar fusion hardware with laminectomy changes at L5-S1. Otherwise overall similar exam when compared to the prior MRI in 2018. Exposure: One or more of the following in the visualized dose reduction techniques were utilized for this examination: 1. Automated exposure control 2. Adjustment of the MA and/or KV according to patient size 3. Use of iterative of reconstructive technique Electronically signed by: Tal Hunag MD (04/10/2019 5:31 PM) [facility]
[2019-04-10] MEDS ORDERED: OXYC1TAB15 PO (17:47)
[2019-04-10] MEDS ORDERED: ORPH100T PO (17:47)
== END 2019-04-10 18:04 | disposition home or self-care (01) ==
LOC: ER 15:38
DX: S39.012A Strain of muscle, fascia and tendon of lower back, initial encounter (principal); G89.29 Other chronic pain; E11.9 Type 2 diabetes mellitus without complications; I10 Essential (primary) hypertension; E03.9 Hypothyroidism, unspecified; K58.9 Irritable bowel syndrome, unspecified; X58.XXXA Exposure to other specified factors, initial encounter; Y93.89 Activity, other specified; Y92.89 Other specified places as the place of occurrence of the external cause; Y99.8 Other external cause status
CPT/HCPCS: 72131; 96372; 99284; J2360

== ENCOUNTER → 2019-04-24 | Outpatient (CLI) | payer BC ==
[2019-04-10 16:09] VITALS: BP 157/89
[~2019-04-24] MED LIST changes: +ORPH100T PO; +OXYC1TAB15 PO
--- NOTE | 2019-04-24 10:08 | PAIN ---
DATE OF SERVICE: 04/24/2019 PROGRESS NOTE FOR PAIN CLINIC DIAGNOSES: Lumbar radiculopathy with lumbar degenerative disk disease, lumbar spondylosis and post-lumbar laminectomy syndrome. HISTORY OF PRESENT ILLNESS: The patient is a 39-year-old female who returns for followup status post spinal cord stimulator implant, which was in October of this year, 10/08. The patient reports about 90% improvement. She was completely weaned off of all of her pain medications and muscle relaxants; however, about 3 weeks ago, she decided to go bowling and tried this 4 times with significant pain in the low back and the right leg, mostly in the anterior thigh. The patient reports it has been significantly painful. She has been taking her pain medicine once again, although she is running out quickly as well as Zanaflex, which does help decrease the pain. She presents today for reprogramming of her stimulator as well and [employer] patient account representative is here to meet her. The patient reports the pain is a 10 on a scale of 10, worst in the past week, 7 on average and 6 at its least and is a 7 today. The patient reports burning, aching, sharp, shooting, stabbing, radiating pain in the low back and the right leg with both legs tingling at times. The patient reports no loss of motor function. It awakens her from sleep at night sporadically, but not every night. No bowel or bladder incontinence. PHYSICAL EXAMINATION: VITAL SIGNS: The patient's blood pressure 136/84, pulse 69, respirations 16, temperature 98.4 degrees Fahrenheit, height is 5 feet 7 inches and weight is 244 pounds. GENERAL: The patient is awake, alert, oriented, appropriate, very pleasant demeanor. HEENT: Shows normocephalic, atraumatic. Extraocular movements are intact and symmetrical. Oral cavity: Mucous membranes are moist and pink. Dentition is intact. NECK: Shows anterior throat supple without palpable lymphadenopathy noted. Swallow reflex symmetrical. CHEST: Shows normal on inspection. Breath sounds clear to auscultation bilaterally. HEART: Shows S1, S2 clear. No murmurs auscultated. ABDOMEN: Soft, nontender, nondistended. BACK: Shows spine grossly in the midline. Well-healed surgical scar is noted. Easily palpable spinal cord stimulator is noted in the left lower lumbar distribution, which is nontender. EXTREMITIES: Lower extremities show deep tendon reflexes 1+ in the patellar and tendo calcaneus tendons. Motor exam is strong with 5/5 dorsiflexion and extension. Options were discussed with the patient. We will check fluoroscopic view of the spinal cord stimulator leads today, which was performed and shows good placement to upper body overlying the T8 vertebral body and the T9 vertebral body, midline and posterior in the epidural space. The patient will continue with reprogramming today with [employer] patient account representative. Also, we will give the patient medication refill of oxycodone 10 mg as well as Zanaflex 4 mg with instructions, side effects to be aware of discussed with each. The patient will follow up in approximately 1 month or sooner if necessary. FLYNN ALONSO MD DR: ARTHUR/nguyễn JOB#: [id number] / [id number]
== END | disposition home or self-care (01) ==
LOC: PNCL 08:17
PROVIDERS: ATTEND Anesthesiology
DX: M51.16 Intervertebral disc disorders with radiculopathy, lumbar region (principal); M47.26 Other spondylosis with radiculopathy, lumbar region; M96.1 Postlaminectomy syndrome, not elsewhere classified
CPT/HCPCS: G0463

== ENCOUNTER 2019-05-21 22:03 | Emergency (ER) | payer BC ==
[~2019-05-21] VITALS: Ht 168.9 cm; Wt 112.0 kg
[~2019-05-21 22:03] MED LIST changes: -MINO100C PO; +MINO100C61 PO
[2019-05-21 22:35] VITALS: BP 120/66
[2019-05-21] MEDS ORDERED: ORPHENADRINE CITRATE 60 MG/2 ML VIAL. IM ONE (23:30)
[2019-05-21] MEDS ORDERED: DEXAMETHASONE SOD PHOS 20 MG/5 ML VIAL. IM ONE (23:30)
[2019-05-22] MEDS ORDERED: GABA600T7 PO (00:23)
--- NOTE | 2019-05-22 00:23 | PHYS DOC ---
Past Medical History Past Medical History: Diabetes-Type II, Hypertension, Hypothyroid, IBS, Other Additional Past Medical Histor: chronic back pain, gout, sleep apnea, PCOS (DAMIR LOO APRN) Past Surgical History: Tonsillectomy, Other Additional Past Surgical Histo: multiple back surgeries, ADENOIDS, NEURO STIMULATOR 10/22 (DAMIR LOO APRN) Alcohol Use: Rarely Drug Use: None (DAMIR LOO APRN) Attending Signature I have participated in the care of this patient and I have reviewed and agree with all pertinent clinical information above including history, exam, and recommendations. (MUNA MCBRIDE MD) Adult General Chief Complaint Chief Complaint: LOWER BACK PAIN OR INJURY HPI HPI Patient is a 39 year old female, accompanied by her , who presents to the ER with complaints of worsening chronic low back pain. She denies any new injury or fall. She states that the pain feels like sharp, shooting, burning pain in both of her legs. She denies any saddle anesthesia or loss of bowel/bladder control. She currently rates her pain a 10/10 on the pain scale. She has been taking her oxycodone and zanaflex as prescribed with no relief. Pt reports having a neurostimulator placed earlier this year and reports that the settings are being changed frequently but she is getting little relief of her pain. Pt has an appointment with her pain management doctor next Sunday. (DAMIR LOO APRN) Review of Systems Review of Systems Constitutional: Denies fever or chills [] GI: Denies abdominal pain, nausea, or vomiting : Denies dysuria, incontinence, or hematuria [] Musculoskeletal: see HPI Integument: Denies rash or skin lesions [] Neurologic: Denies headache, focal weakness or sensory changes [] Complete systems were reviewed and found to be within normal limits, except as documented in this note. (DAMIR LOO APRN) Current Medications Current Medications Current Medications Medications (Trade) Dose Ordered Sig/Kerwin Start Time Stop Time Status Last Admin Dose Admin Dexamethasone Sodium Phosphate (Decadron) 10 mg 1X ONCE 05/21/19 23:30 05/21/19 23:31 DC 05/21/19 23:27 10 MG Orphenadrine Citrate (Norflex) 60 mg 1X ONCE 05/21/19 23:30 05/21/19 23:31 DC 05/21/19 23:28 60 MG (MUNA MCBRIDE MD) Allergies Allergies Allergies Coded Allergies Type Severity Reaction Last Updated Verified No Known Drug Allergies 06/21/18 No (MUNA MCBRIDE MD) Physical Exam Physical Exam Constitutional: Well developed, well nourished, no acute distress, non-toxic appearance, obese. [] HENT: Normocephalic, atraumatic, bilateral external ears normal, nose normal. [] Eyes: PERRLA, EOMI, conjunctiva normal, no discharge. [] Neck: Normal range of motion, no stridor. [] Cardiovascular:Heart rate regular rhythm, no murmur [] Lungs & Thorax: Respirations even and unlabored, no retractions, no respiratory distress Skin: Warm, dry, no erythema, no rash. [] Back: No bony tenderness, lumbar paraspinal TTP bilaterally, pt reports increased pain with straight leg lift of bilateral legs. Extremities: No cyanosis, no edema. [] Neurologic: Alert and oriented X 3, no focal deficits noted. [] Psychologic: Affect normal, judgement normal, mood normal. [] (DAMIR LOO APRN) Current Patient Data Vital Signs Vital Signs Date Time Temp Pulse Resp B/P (MAP) Pulse Ox O2 Delivery O2 Flow Rate FiO2 05/21/19 22:35 98.7 73 20 120/66 (84) 98 Room Air 98.7 (MUNA MCBRIDE MD) EKG EKG [] (DAMIR LOO APRN) Radiology/Procedures Radiology/Procedures [] (DAMIR LOO APRN) Course & Med Decision Making Course & Med Decision Making Pertinent Labs and Imaging studies reviewed. (See chart for details) dx: Lumbar radiculopathy Patient was given 60 mg of IM Norflex and 10 mg of IM Decadron in the emergency department. She reported little relief after these medications. It had a lengthy conversation with patient about the quality of pain, discussed concerns of this being nerve related. Patient reported that she hadn't taking gabapentin 600 mg by mouth 3 times a day in the past but reports that it was stopped because of migraines last spring. Prescription written for gabapentin 600 mg by mouth 3 times a day patient encouraged to try taking this medication and follow-up with her pain management doctor as planned. The patient and her verbalized an understanding of home care, medications, follow-up, and return to ED instructions and was in agreement with the plan of care. [] (DAMIR LOO APRN) Dragon Disclaimer Dragon Disclaimer This electronic medical record was generated, in whole or in part, using a voice recognition dictation system. (DAMIR LOO APRN) Departure Departure Impression: Primary Impression: Lumbar radiculopathy Disposition: HOME, SELF-CARE Condition: STABLE Referrals: ROLO BARNES (PCP) Patient Instructions: Back Pain, Adult, [id number] Additional Instructions: Fill the prescription and use as directed. Activity as tolerated. Follow up with your pain management doctor as scheduled. Return to the ER if symptoms worsen. Scripts Gabapentin (GABAPENTIN) 600 Mg Tablet 600 MG PO TID for NEUROGENIC PAIN for 14 Days, #42 TAB 0 Refills Prov: DAMIR LOO APRN 05/22/19 DAMIR LOO APRN May 22, 2019 00:23 MUNA MCBRIDE MD May 22, 2019 18:53
== END 2019-05-22 00:37 | disposition home or self-care (01) ==
LOC: ER 22:03
DX: M54.16 Radiculopathy, lumbar region (principal); E11.9 Type 2 diabetes mellitus without complications; I10 Essential (primary) hypertension; E03.9 Hypothyroidism, unspecified; K58.9 Irritable bowel syndrome, unspecified; G89.29 Other chronic pain
CPT/HCPCS: 96372; 99284; J1100; J2360